=== PATIENT | male | born 1940 | race Two or more races ===

== ENCOUNTER 2024-03-11 03:00 | Inpatient (IN) | payer OTHER, MEDICAID ==
[~2024-03-11] VITALS: Ht 175.3 cm; Wt 68.2 kg
[2024-03-11] VITALS (9 sets, daily range): BP systolic 89–115; BP diastolic 63–81; PULSE 91–123; RESP 20–31; TEMP 98.4; O2SAT 99–100
[2024-03-11] MEDS: SUCCINYLCHOLINE CHLORIDE 20 MG/ML 10ML VIAL IV ONE ×2 (03:07→03:10)
[2024-03-11] MEDS: ETOMIDATE (2MG/ML) 20ML VIAL IV ONE ×2 (03:07→03:10)
[2024-03-11] MEDS ORDERED: NOREPINEPHRINE 8 MG/250ML KIT 250 ML IV SCH (03:15)
[2024-03-11] MEDS: SODIUM CHLORIDE 0.9% 2,000 ML IV ONE (03:25)
--- NOTE | 2024-03-11 03:26 | ED.PDOC ---
Altered Mental Status HPI Comments 83-year-old male with unknown PMHx brought in by EMS presents with an altered mental status. According to EMS, son of patient states that patient has not see a doctor in "years", therefore patient has "no" PMHx and doesn't take medication for anything. Per EMS, son of patient reports that patient is usually ambulatory and alert, but has been cognitively declining over the past x 2 weeks. Patients vital signs were BP 70 systolic, HR 163, temp 103F rectally, and was sating at 70% on room air. EMS gave fluids and placed patient on non-rebreather. Unable to obtain further information at this time due to patients ALOC and lack of family at bedside. Chief Complaint: ALOC Time Seen by MD: 03:00 Reviewed Notes: Medications, Allergies Allergies: Coded Allergies: NO KNOWN ALLERGIES (Unverified , 03/11/24) Information Source: Emergency Med Personnel Mode of Arrival: EMS Severity: Unresponsive Timing: Hours Duration: Since onset Prehospital treatment: IVF, Oxygen Quality: Decreased Alertness History of: Other (UNABLE TO OBTAIN/UNKNOWN) Vital Signs Vital Signs Date Time Temp Pulse Resp B/P (MAP) Pulse Ox O2 Delivery O2 Flow Rate FiO2 03/11/24 15:00 87/64 03/11/24 15:00 97.9 97 22 100 97.9 03/11/24 13:32 50 03/11/24 08:00 Mechanical Ventilator+ Physical Exam General: Patient is obtunded, appears emaciated, chronically ill Skin: Skin in warm, dry and intact. Appropriate color for ethnicity. Nailbeds pink with no cyanosis. HEENT: The head is normocephalic and atraumatic. Conjunctivae are clear without exudates or hemorrhage. Sclera is non-icteric. EOM are intact. No signs of nystagmus. Eyelids are normal in appearance without swelling or lesions. Oral mucosa is pink and moist Neck: The neck is supple with normal range of motion. No JVD. Cardiac: Rapid heart rate, normal rhythm No murmurs, gallops, or rubs are auscultated. Respiratory: Rapid labored breathing with rales. Abdominal: Abdomen is soft, non-tender without distention. Bowel sounds are present and normoactive in all four quadrants. Extremities: Upper and lower extremities are atraumatic in appearance without deformity or edema. Neurological: Patient is obtunded, responds only to painful stimulus, not following commands Review of Systems: Unable to obtain Past Medical History PAST MEDICAL HISTORY: Unknown Surgical History: Unknown Family History Family History: Unknown Social History Smoker: Unknown Alcohol: Unknown Drugs: Unknown Lives In: Unknown EKG EKG : Pulse Rate (adult): 125 [place]: Normal Cardiac Rhythm: ST Block: None Hypertrophy: None ST: Normal Was a procedure done? Was a procedure done?: Yes Sedation Sedation?: Yes Informed consent obtained: No Sedation start time: 03:10 Sedation end time: 03:11 Sedation total time: 1 minute Intubation Indication: Respiratory Insufficiency, Altered Mental Status, Airway Protection Prep: Preoxygenation Pretreated with: Sedation Medicated with: Succinylcholine, Other (ETOMIDATE) Intubation Approach: Orotracheal Intubation size: cm (22 at lip) Informed consent obtained: No Risks/benefits/alt described: No Notes Intubated using GlideScope, to visualize through tubes directly, 1st attempt, 8.0 cuffed tube, confirmed by x-ray, auscultation, CO2 color change Differential Diagnosis (ALOC) Differential Diagnosis: Dehydration, Hypoglycemia, DKA, Encephalopathy, Meningitis, Sepsis, Hypoxemia, Seizure, Closed Head Injury, CVA, Mass Lesion, SAH, Drug Overdose, ETOH Intoxication, Heart Failure, Renal Failure, Other X-Ray, Labs, Meds, VS Vital Signs Date Time Temp Pulse Resp B/P (MAP) Pulse Ox O2 Delivery O2 Flow Rate FiO2 03/11/24 15:00 64 03/11/24 15:00 64 03/11/24 15:00 97.9 97 22 (72) 100 97.9 03/11/24 14:45 97.9 99 24 107/72 (84) 100 97.9 03/11/24 14:30 98.1 104 26 (71) 100 98.1 03/11/24 14:15 98.2 103 26 (71) 100 98.2 03/11/24 14:00 98.2 103 26 (71) 100 98.2 03/11/24 14:00 64 03/11/24 14:00 64 03/11/24 13:45 98.2 104 25 100/63 (75) 100 98.2 03/11/24 13:32 100 25 100/63 (75) 100 50 03/11/24 13:30 98.2 104 25 91/66 (74) 100 98.2 03/11/24 13:15 98.4 103 25 85/57 (66) 100 98.4 03/11/24 13:00 91/62 03/11/24 13:00 91/62 03/11/24 13:00 98.4 105 25 91/62 (72) 100 98.4 03/11/24 12:45 98.6 105 27 91/63 (72) 100 98.6 03/11/24 12:30 98.6 105 26 91/58 (69) 100 98.6 03/11/24 12:15 98.6 106 27 76/52 (60) 100 98.6 03/11/24 12:15 76/52 03/11/24 12:00 98.8 99 29 86/61 (69) 99 98.8 03/11/24 12:00 86/61 03/11/24 12:00 86/61 03/11/24 11:45 99.0 79 25 71/50 (57) 100 99.0 03/11/24 11:30 99.0 108 33 69/48 (55) 100 99.0 03/11/24 11:20 110 23 69/48 (55) 99 50 03/11/24 11:15 99.3 110 27 72/42 (52) 99 99.3 03/11/24 11:15 69/48 03/11/24 11:00 72/42 03/11/24 11:00 72/42 03/11/24 11:00 99.3 109 26 89/60 (70) 98 99.3 03/11/24 10:45 99.7 109 20 88/64 (72) 98 99.7 03/11/24 10:30 100.0 109 31 88/64 (72) 98 100.0 03/11/24 10:29 82/54 03/11/24 10:15 100.4 113 22 94/61 (72) 98 100.4 03/11/24 10:00 98/65 03/11/24 10:00 98/65 03/11/24 10:00 100.6 115 25 98/73 (81) 99 100.6 03/11/24 09:52 98/65 03/11/24 09:45 100.9 118 25 100/73 (82) 99 100.9 03/11/24 09:39 120 23 100/73 (82) 99 50 03/11/24 09:37 118 03/11/24 09:30 101.1 118 24 105/68 (80) 100 101.1 03/11/24 09:15 101.7 114 25 96/69 (78) 100 101.7 03/11/24 09:00 96/69 03/11/24 09:00 105/61 03/11/24 09:00 101.7 119 27 105/61 (76) 99 101.7 03/11/24 08:45 101.8 114 29 106/72 (83) 99 101.8 03/11/24 08:30 102.2 116 30 88/62 (71) 99 102.2 03/11/24 08:15 102.2 116 30 88/62 (71) 99 102.2 03/11/24 08:02 117 29 88/62 (71) 99 60 03/11/24 08:00 120 26 100 Mechanical Ventilator+ 60 60 03/11/24 08:00 102.2 118 26 95/49 (64) 99 102.2 03/11/24 08:00 95/49 03/11/24 08:00 95/49 03/11/24 07:45 102.2 118 27 111/57 (75) 100 102.2 03/11/24 07:30 102.2 120 26 111/57 (75) 100 102.2 03/11/24 07:30 102.4 116 23 97/57 (70) 100 102.4 03/11/24 07:15 102.4 117 27 100/64 (76) 99 102.4 03/11/24 07:00 102.6 119 26 100/64 (76) 99 102.6 03/11/24 06:50 93/45 03/11/24 06:50 93/45 03/11/24 06:45 102.6 117 26 93/45 (61) 99 102.6 03/11/24 06:30 102.6 116 25 100/72 (81) 99 102.6 03/11/24 06:15 97.0 113 22 104/72 (83) 100 97.0 12/3/24 06:03 114 26 106/78 (87) 100 60 03/11/24 06:00 113 24 109/66 (80) 100 03/11/24 05:53 116 03/11/24 05:50 108/74 03/11/24 05:50 108/74 03/11/24 05:45 116 22 108/74 (85) 100 03/11/24 05:30 114 22 111/77 (88) 100 03/11/24 05:15 98.1 119 24 111/77 (88) 100 98.1 03/11/24 05:00 113 25 101/73 (82) 100 03/11/24 05:00 111 03/11/24 04:55 88/69 03/11/24 04:55 88/69 03/11/24 04:45 110 28 96/64 (75) 99 03/11/24 04:41 123 31 111/69 (83) 99 65 03/11/24 04:30 108 25 111/69 (83) 100 03/11/24 04:17 98/68 03/11/24 04:15 97.9 112 28 91/65 (74) 100 97.9 03/11/24 04:00 75/49 03/11/24 04:00 130 36 75/49 (58) 99 03/11/24 03:55 115 03/11/24 03:55 78/46 03/11/24 03:46 88/57 03/11/24 03:45 130 36 88/57 (67) 95 03/11/24 03:41 93/64 03/11/24 03:30 130 36 129/79 (96) 95 03/11/24 03:27 125 03/11/24 03:15 98.4 130 36 130/75 (93) 98.4 03/11/24 03:15 Mechanical Ventilator+ 60 60 03/11/24 03:11 126 18 130/75 (93) 90 100 03/11/24 03:03 125 03/11/24 03:00 103.0 133 44 63/43 (50) 98 Lab Test 03/11/24 09:18 03/11/24 06:01 03/11/24 05:14 03/11/24 04:21 Range/Units Troponin I High Sensitivity 27 28 </=54 ng/L White Blood Count 19.2 H 4.4-10.8 10^3/uL Red Blood Count 3.77 L 4.5-5.90 10^6/uL Hemoglobin 9.8 L 13.5-17.5 g/dL Hematocrit 31.2 L 41.0-53.0 % Mean Corpuscular Volume 82.6 80.0-100.0 fL Mean Corpuscular Hemoglobin 26.0 L 28.0-32.0 pg Mean Corpuscular Hemoglobin Concent 31.4 L 32.0-36.0 g/dL Red Cell Distribution Width 16.2 H 11.8-14.3 % Platelet Count 193 140-450 10^3/uL Mean Platelet Volume 8.0 6.9-10.8 fL Neutrophils (%) (Auto) 37.0-80.0 % Lymphocytes (%) (Auto) 10.0-50.0 % Monocytes (%) (Auto) 0.0-12.0 % Basophils (%) (Auto) 0.0-2.0 % Neutrophils # (Auto) 1.6-8.6 10 ^3/uL Lymphocytes # (Auto) 0.4-5.4 10 ^3/uL Monocytes # (Auto) 0-1.3 10 ^3/uL Differential Total Cells Counted 100.0 100 Neutrophils % (Manual) 82 H 37.0-80.0 Band Neutrophils % (Manual) 7 Lymphocytes % (Manual) 7 L 10.0-50.0 Monocytes % (Manual) 4 0-12 Eosinophils % (Manual) 0 0-7 Basophils % (Manual) 0 0.0-2.0 Metamyelocytes % (manual) 0 Myelocytes % (Manual) 0 Promyelocytes % (Manual) 0 Blast Cells % (Manual) 0 Reactive Lymphocytes 0 Platelet Estimate Adequate Lactic Acid Level 2.8 *H 0.4-2.0 mmol/L B-Type Natriuretic Peptide 262.73 0-100 pg/mL Influenza Type A Antigen Negative Negative Influenza Type B Antigen Negative Negative SARS-CoV-2 Antigen (Rapid) Negative NEGATIVE Blood Gas Specimen Type Arterial Blood Gas Sample Site Right radial Blood Gas Patient Temperature 37.0 Arterial Blood Date Drawn [id number] Arterial Blood pH 7.504 H 7.350-7.450 Arterial Blood Partial Pressure CO2 33.0 L 35.0-48.0 mmHg Arterial Blood Partial Pressure O2 172.5 H 83.0-108.0 mmHg Arterial Blood HCO3 25.4 21.0-28.0 mmol/L Arterial Blood Oxygen Saturation 99.1 H 94.0-98.0 % Arterial Blood Base Excess 2.5 -2.0-3.0 mmol/L Arterial Blood Oxyhemoglobin 98.2 H 94.0-98.0 % Arterial Blood Carboxyhemoglobin 0.3 L 0.5-1.5 % Arterial Blood Methemoglobin 0.6 0.0-1.5 % Will Test Modified Blood Gas Total Hemoglobin 10.40 L 13.5-17.5 g/dL Blood Gas Set Respiration Rate 18.0 Blood Gas Modality Vent - ac Blood Gas Spontaneous Rate 31 FiO2 % 100.0 Blood Gas Tidal Volume 500.0 Blood Gas Spontaneous Tidal Volume 540 Blood Gas Inspiratory Pressure 30.0 Blood Gas PEEP or CPAP 5.0 Bl Gas Inspiratory/Expiratory Ratio 1:1.3 Test 03/11/24 04:00 03/11/24 03:24 Range/Units Urine Color Yellow Yellow Urine Clarity Turbid H Clear Urine pH 6.0 5.0-9.0 Urine Specific [place] 1.016 1.001-1.035 Urine Protein 1+ H Negative Urine Ketones Negative Negative Urine Blood 1+ H Negative /uL Urine Nitrite Negative Negative Urine Bilirubin Negative Negative Urine Urobilinogen 2 H Negative mg/dL Urine Leukocyte Esterase 3+ Negative /uL Urine RBC 24 0 - 3 /hpf Urine WBC 280 0 - 3 /hpf Urine Squamous Epithelial Cells Few <5 /hpf Urine Bacteria Many H None Seen /hpf Urine Mucus Few None Seen Urine Glucose Normal Normal mg/dL Urine Opiates Screen Neg NEGATIVE Urine Fentanyl Screen Neg NEGATIVE Urine Barbiturates Screen Neg NEGATIVE Urine Phencyclidine Screen Neg NEGATIVE Urine Amphetamines Screen Neg NEGATIVE Urine Benzodiazepines Screen Neg NEGATIVE Urine Cocaine Screen Neg NEGATIVE Urine Cannabinoids Screen Neg NEGATIVE Sodium Level 149 H 136-145 mmol/L Potassium Level 4.8 3.5-5.1 mmol/L Chloride Level 111 H 98-107 mmol/L Carbon Dioxide Level 23 20-31 mmol/L Anion Gap 15 5-15 Blood Urea Nitrogen 20 9-23 mg/dL Creatinine 0.59 L 0.700-1.30 mg/dL Glomerular Filtration Rate Calc 97 >90 mL/min BUN/Creatinine Ratio 33.9 H 10.0-20.0 Serum Glucose 249 H 74-106 mg/dL Lactic Acid Level 4.6 *H 0.4-2.0 mmol/L Calcium Level 8.7 8.7-10.4 mg/dL Magnesium Level 1.9 1.6-2.6 mg/dL Total Bilirubin 0.5 0.2-1.0 mg/dL Aspartate Amino Transferase (AST) 16 13-40 U/L Alanine Aminotransferase (ALT) < 9 7-40 U/L Alkaline Phosphatase 88 46-116 U/L Troponin I High Sensitivity 21 </=54 ng/L Total Protein 5.6 L 5.7-8.2 g/dL Albumin 2.4 L 3.2-4.8 g/dL Plasma/Serum Blood Alcohol < 3.0 <10 mg/dL Microbiology Date/Time Source Procedure Growth Status 03/11/24 03:20 Sputum Endotracheal Wash Gram Stain - Final Resulted 03/11/24 03:20 Sputum Endotracheal Wash Respiratory Culture Pending Resulted Current Medications Medications (Trade) Dose Ordered Sig/Hunter Route Start Time Stop Time Status Last Admin Piperacillin Sod/ Tazobactam Sod 100 ml @ 25 mls/hr Q8HR IV 03/11/24 06:00 03/11/24 17:46 DC 03/11/24 16:30 Sodium Chloride 2,000 ml @ 1,000 mls/hr Q2H ONCE IV 03/11/24 03:15 03/11/24 05:14 DC 03/11/24 03:25 Midazolam HCl 50 ml @ 1 mls/hr Q24H IV 03/11/24 03:45 03/11/24 16:42 DC 03/11/24 03:41 Norepinephrine Bitartrate 250 ml @ 3.75 mls/hr Q24H IV 03/11/24 03:45 03/11/24 17:25 Vancomycin HCl 200 ml @ 120 mls/hr ONCE ONCE IV 03/11/24 05:00 03/11/24 06:39 DC 03/11/24 04:31 Sodium Chloride 1,000 ml @ 130 mls/hr Q7H42M ONCE IV 03/11/24 04:15 03/11/24 11:56 DC 03/11/24 04:25 Etomidate 20 mg ONCE ONCE IV 03/11/24 03:10 03/11/24 05:19 DC 03/11/24 03:10 Succinylcholine Chloride (Quelicin) 120 mg ONCE ONCE IV 03/11/24 03:10 03/11/24 05:19 DC 03/11/24 03:10 Acetaminophen (Ofirmev) 1,000 mg ONCE ONCE IV 03/11/24 07:15 03/11/24 07:16 DC 03/11/24 08:54 Time of 1ST Reevaluation: 03:30 Reevaluation 1ST: Unchanged Patient Education/Counseling: Pt Unresponsive Family Education/Counseling: No Family Present Departure 1 Departure Time of Disposition: 05:42 Impression: Primary Impression: Sepsis Additional Impressions: Altered mental status Respiratory failure Disposition: 09 ADMITTED INPATIENT Admit to: ICU Condition: Critical Comments 83-year-old male who presented to the emergency department with altered mental status, labored breathing, hypoxia. He was intubated for airway protection, oxygenation. Patient found to be febrile, there is concern for sepsis, possible sources UTI, pulmonary. He was started on antibiotics and IV fluids promptly. Lactic acid noted to be elevated at 4.6. CT head, abdomen pelvis pending. Patient admitted for further treatment, evaluation and monitoring. Number & Complexity of Problems Addressed Sepsis, urinary tract infection, pneumonia Extensive evaluation was performed to identify or rule out: CVA, septic shock, acute coronary syndrome, acute surgical abdomen, Amount and/or Complexity of Data to be Reviewed/Analyzed Tests reviewed: Lab, material blood gas, and imaging studies Documents reviewed: No previous documents available for review Independent historian: EMS Independent interpretation of tests: EKG, chest x-ray, ABG Risk of Complications and/or Morbidity or Mortality of Patient Management Patient was at high risk of morbidity from additional diagnostic testing or treatment Decision was made regarding hospitalization or escalation of hospital level of care Critical Care Note Critical Care Time?: Yes (35 min-critical care time only) Critical care comment: Total critical care time: Approximately 35 minutes Due to a high probability of clinically significant, life threatening deterioration, the patient required my highest level of preparedness to intervene emergently and I personally spent this critical care time directly and personally managing the patient. This critical care time included obtaining a history; examining the patient; pulse oximetry; ordering and review of studies; arranging urgent treatment with development of a management plan; evaluation of patient's response to treatment; frequent reassessment; and, discussions with other providers. This critical care time was performed to assess and manage the high probability of imminent, life-threatening deterioration that could result in multi-organ failure. It was exclusive of separately billable procedures and treating other patients and teaching time. Please see my other sections and the rest of the note for further information on patient assessment and treatment. Stability Stability form required: No I personally scribed for GERRY CHAMBERS MD ([email or web address]) on 03/11/24 at 03:26. Electronically submitted by Reji Davidson ([email or web address]). I personally scribed for GERRY CHAMBERS MD ([email or web address]) on 03/11/24 at 03:27. Electronically submitted by Reji Davidson ([email or web address]). I personally scribed for GERRY CHAMBERS MD ([email or web address]) on 03/11/24 at 03:31. Electronically submitted by Reji Davidson ([email or web address]). GERRY CHAMBERS MD Mar 11, 2024 03:26
[2024-03-11] MEDS: MIDAZOLAM DRIP 50 mg/50mL 50 ML IV ONE (03:41)
[2024-03-11] MEDS: MIDAZOLAM DRIP 50 mg/50mL 50 ML IV SCH (03:41)
[2024-03-11] MEDS: NOREPINEPHRINE 8 MG/250ML KIT 250 ML IV SCH (03:46)
[2024-03-11] MEDS: NOREPINEPHRINE 8 MG/250ML KIT 250 ML IV ONE (03:46)
--- NOTE | 2024-03-11 03:46 | DVH ---
CHEST RADIOGRAPH Indication: post intubation sepsis Technique: Single frontal view of the chest was obtained COMPARISON: None FINDINGS: Lines and Tubes: Endotracheal tube in satisfactory position. Lungs: Multifocal airspace disease. Pleura: No effusion. No pneumothorax. Cardiomediastinal contours: Unremarkable Bones: Unremarkable IMPRESSION: Endotracheal tube in satisfactory position. Multifocal airspace disease.
--- NOTE | 2024-03-11 03:57 | ECG ---
[facility] Test Date: 2024-03-11 Test Time: 03:55:59 Pat Name: ARLINE WHITE Department: ED Room: [address] [place] [address] Gender: M Monitor Technician: ALEX : 1940 Requested By: GERRY CHAMBERS Order Number: [id number] Reading MD: Sebastian Jane Measurements Intervals [place] Rate: 115 P: 76 MN: 144 QRS: 81 QRSD: 66 T: -87 QT: 319 QTc: 442 Interpretive Statements Sinus tachycardia Borderline right axis deviation Borderline repolarization abnormality Electronically Signed On 03-12-2024 16:21:52 PST by Sebastian Jane Please click the below link to view image of tracing.
[2024-03-11 04:03] LABS: Lactic Acid w/Reflex 4.6 mmol/L (0.4-2.0)
[2024-03-11] MEDS: SODIUM CHLORIDE 0.9% 1,000 ML IV ONE (04:25)
--- NOTE | 2024-03-11 04:30 | DVH ---
CHEST RADIOGRAPH Indication: NG TUBE PLACEMENT Technique: Single frontal view of the chest was obtained Comparison: XY CHEST XRAY 1 VIEW on DOS: 03/11/24 FINDINGS: Lines and Tubes: The endotracheal tube terminates 3.2 cm above the matt. The enteric tube courses below the left hemidiaphragm and extends outside the field of view. Lungs: The right hemidiaphragm is elevated. Mild bilateral interstitial prominence. Pleura: No effusion. No pneumothorax. Cardiomediastinal contours: Unremarkable Bones: No acute osseous abnormality. IMPRESSION: 1. Enteric tube courses below the left hemidiaphragm and outside the field of view. Bilateral interstitial prominence.
[2024-03-11 04:31] LABS: Base Excess 2.5 mmol/L (-2.0-3.0)
[2024-03-11 04:31] LABS: Amphetamine Screen, Urine Neg (NEGATIVE); Barbiturate Scree,Urine Neg (NEGATIVE); Benzodiazephine Screen, Urine Neg (NEGATIVE); Cocaine Screen, Urine Neg (NEGATIVE); Opiate Scree,Urine Neg (NEGATIVE)
[2024-03-11] MEDS: VANCOMYCIN 1GM/250ML KIT 200 ML IV ONE (04:31)
[2024-03-11 04:32] LABS: Cannabinoid Screen, Urine Neg (NEGATIVE); Phencyclidine Screen, Urine Neg (NEGATIVE)
[2024-03-11 04:48] LABS: Albumin 2.4 g/dL (3.2-4.8); Alkaline Phosphatase 88 U/L (46-116); Anion Gap 15 (5-15); Aspartate Aminotransferase 16 U/L (13-40); BUN/Creatinine Ratio 33.9 (10.0-20.0); Blood Urea Nitrogen 20 mg/dL (9-23); Calcium 8.7 mg/dL (8.7-10.4); Carbon Dioxide 23 mmol/L (20-31); Chloride 111 mmol/L (98-107); Glucose 249 mg/dL (74-106); Magnesium 1.9 mg/dL (1.6-2.6); Potassium 4.8 mmol/L (3.5-5.1); Sodium 149 mmol/L (136-145)
[2024-03-11 04:49] LABS: Bilirubin, Total 0.5 mg/dL (0.2-1.0); Total Protein 5.6 g/dL (5.7-8.2)
[2024-03-11 04:57] LABS: Alanine Aminotransferase < 9 U/L (7-40)
[2024-03-11 05:09] LABS: Urine Bacteria MANY /hpf (None Seen); Urine Blood 1+ /uL (Negative); Urine Clarity Turbid (Clear); Urine Color Yellow (Yellow); Urine Mucus FEW (None Seen); Urine Protein, UAD 1+ (Negative); Urine Specific Gravity 1.016 (1.001-1.035); Urine Urobilinogen 2 mg/dL (Negative); Urine WBC 280 /hpf (0 - 3)
[2024-03-11] MEDS: PIPERACILLIN-TAZO 4.5GM 100 ML IV SCH (05:53)
--- NOTE | 2024-03-11 05:55 | ECG ---
[facility] Test Date: 2024-03-11 Test Time: 05:53:52 Pat Name: ARLINE WHITE Department: ED Room: [address] [place] [address] Gender: M Geriatric Physical Therapist: ALEX : 1940 Requested By: GERRY CHAMBERS Order Number: [id number] Reading MD: Sebastian Jane Measurements Intervals [place] Rate: 116 P: -80 [place]: 139 QRS: 78 QRSD: 56 T: -89 QT: 349 QTc: 485 Interpretive Statements Sinus or ectopic atrial tachycardia Atrial premature complex Borderline repolarization abnormality Borderline prolonged QT interval Baseline wander in lead(s) V4 Electronically Signed On 03-12-2024 16:22:14 PST by Sebastian Jane Please click the below link to view image of tracing.
--- NOTE | 2024-03-11 06:01 | DVH ---
EXAM: CT HEAD WITHOUT CONTRAST INDICATION: ams TECHNIQUE: CT of the head without intravenous contrast. Coronal and sagittal reformatted images are submitted. Radiation Dose : 1. Head: CT Dose: CTDI volume is 55.49 mGy. Dose-length product is 889.22 mGy*cm The dose indicators for CT are the volume Computed Tomography (CT) Dose Index (CTDIvol) and the Dose Length Product (DLP), and are measured in units of mGy and mGy-cm, respectively. These indicators are not patient dose, but values generated from the CT scanner acquisition factors. The report includes radiation exposure data for exposures received during this examination. All CT scans at this medical facility are performed using dose modulation techniques as appropriate to a performed exam including the following: Automated exposure control was utilized; adjustment of the MA and/or KV according to patient size; and use of iterative reconstruction technique. COMPARISON: None FINDINGS: There is no evidence of acute intracranial hemorrhage, extra-axial collection, mass effect, midline s hift, herniation or hydrocephalus. Mild generalized volume loss. There are periventricular and subcortical hypodensities, nonspecific, but likely reflecting sequelae of chronic microvascular ischemic changes. Basal cisterns are patent. Mild ventriculomegaly. The webster-white differentiation is intact. The visualized paranasal sinuses and mastoid air cells are clear. No depressed calvarial fracture. The surrounding soft tissues are unremarkable. IMPRESSION: 1. No evidence of acute intracranial hemorrhage or mass effect. 2. Mild ventriculomegaly. Mild hydrocephalus is not excluded.
--- NOTE | 2024-03-11 06:09 | ECG ---
[facility] Test Date: 2024-03-11 Test Time: 03:03:37 Pat Name: ARLINE WHITE Department: ED Room: [address] [place] [address] Gender: M Special Needs Tutor: ALEX : 1940 Requested By: GERRY CHAMBERS Order Number: [id number] Reading MD: Sebastian Jane Measurements Intervals [place] Rate: 125 P: 61 AR: 147 QRS: 80 QRSD: 60 T: 258 QT: 302 QTc: 436 Interpretive Statements Sinus tachycardia Ventricular premature complex Aberrant conduction of SV complex(es) Anteroseptal infarct, old Borderline ST depression, diffuse leads Abnormal T, consider ischemia, diffuse leads Baseline wander in lead(s) V4 Electronically Signed On 03-12-2024 16:17:23 PST by Sebastian Jane Please click the below link to view image of tracing.
[2024-03-11 07:01] LABS: Hematocrit 31.2 % (41.0-53.0); Hemoglobin 9.8 g/dL (13.5-17.5); Mean Corpuscular Hgb Conc. 31.4 g/dL (32.0-36.0); Mean Corpuscular Volume 82.6 fL (80.0-100.0); Platelet Count (auto) 193 10^3/uL (140-450); Red Blood Cells 3.77 10^6/uL (4.5-5.90); Red Cell Distribution Width 16.2 % (11.8-14.3); White Blood Cell 19.2 10^3/uL (4.4-10.8)
[2024-03-11 07:08] LABS: COVID19 ANTIGEN SOFIA FIA NEGATIVE (NEGATIVE)
[2024-03-11 07:09] LABS: Rapid Influenza A Negative (Negative); Rapid Influenza B Negative (Negative)
[2024-03-11 07:23] LABS: Basophils % (manual) 0 (0.0-2.0); Blast Cells 0; Eosinophils % (manual) 0 (0-7); Metamyelocytes % 0; Myelocytes % 0; Promyelocytes % 0; Reactive Lymphocytes 0
[2024-03-11 07:50] LABS: Band Neutrophils % (manual) 7; Lymphocytes % (manual) 7 (10.0-50.0); Monocytes % (manual) 4 (0-12); Platelet Estimate Adequate
--- NOTE | 2024-03-11 08:53 | DVH ---
Exam: CT CT AB PEL WO CON-NO ORAL OR IV History: Hematuria, altered mental status, UTI, sepsis Comparison Study: None Technique: Multidetector spiral CT of the abdomen was performed from lung bases to pubic symphysis. Imaging was performed without IV contrast. Axial, coronal and sagittal multiplanar reformats were ob tained from the axial data set by the technologist. Radiation Dose : 1. Abdomen/Pelvis: CTDIvol 5.7 mGy, DLP 329.1 mGy*cm. Findings: Evaluation of solid organs is limited due to lack of intravenous contrast use. Lung Bases: Bilateral lower lobe airspace disease. Liver: The liver is normal in size. No focal lesions. Gallbladder and Biliary Tree: Unremarkable Spleen: Unremarkable Pancreas: The pancreas is grossly normal in appearance. Adrenal Glands: Unremarkable Kidneys: Kidneys are grossly normal without calculi or hydronephrosis. Bladder: Jimenez catheter in the bladder. Bowel: Nasogastric tube in the stomach. Large volume colonic stool. The appendix is not visualized; however, no secondary findings of acute appendicitis identified. Ascites: Absent Lymphadenopathy: No mesenteric, retroperitoneal or periportal lymphadenopathy. Abdominal Wall and Mesentery: Unremarkable. Vasculature: Vascular calcifications of the aorta. Infrarenal abdominal aortic aneurysm measures 5.9 cm. Pelvic Organs: Prostate is enlarged. Musculoskeletal: Grade 1 anterolisthesis of L5 on S1. No acute fracture. Diffuse mixed lytic and sclerotic appearance to visualized osseous structures is suspicious for metas tatic infiltration. IMPRESSION: Multifocal airspace opacities in the bilateral lower lobes is suspicious for multifocal infection. Abdominal aortic aneurysm measures 5.9 cm. Large volume colonic stool. Diffuse mixed lytic and sclerotic appearance to visualized osseous structures is suspicious for metas tatic infiltration. Radiation optimization: All CT scans at this facility use at least one of these dose optimization daniele hniques: automated exposure control mA and/or kV adjustment per patient size (includes targeted exam s where dose is matched to clinical indication) or iterative reconstruction.
[2024-03-11] MEDS: ACETAMINOPHEN IV 1000 MG/100ML (10MG/ML) IV ONE (08:54)
[2024-03-11] MEDS ORDERED: VANCOMYCIN 1GM/250ML KIT 200 ML IV SCH (10:00)
[2024-03-11] MEDS ORDERED: VANCOMYCIN PER PHARMACY 0 MG IV SCH (16:30)
[2024-03-11] MEDS ORDERED: MORPHINE SULFATE 4 MG/ML SYR/VIAL IV PRN (16:30)
--- NOTE | 2024-03-11 16:38 | DVHHP2 ---
History of Present Illness Reason for Visit: Altered mental status History of Present Illness 83-year-old male who apparently does not get medical care or goes to the doctor, no medical problems, no medications at home, is brought to the emergency room by his son due to altered mentation. His mental status started to decline 2 weeks ago Here he was hypotensive and was started on Levophed drip, he was tachycardic, he was intubated and currently is sedated and still on Levophed for blood pressure support and Versed for sedation The labs showed UTI Chest x-ray showed pneumonia White count is high at 9.2 Lactic acid high at 4.6 Past Medical History Unknown Past Surgical History: None Smoke: Quit Review of Systems Allergies: Coded Allergies: NO KNOWN ALLERGIES (Unverified , 03/11/24) Medications Current Medications Medications Dose Ordered Sig/Hunter Route Start Time Stop Time Status Last Admin Dose Admin Vancomycin HCl 200 ml @ 200 mls/hr Q12HR IV 03/11/24 10:00 UNV Piperacillin Sod/ Tazobactam Sod 100 ml @ 25 mls/hr Q8HR IV 03/11/24 06:00 03/11/24 05:53 25 MLS/HR Midazolam HCl 50 ml @ 1 mls/hr Q24H IV 03/11/24 03:45 03/11/24 03:41 1 MLS/HR Norepinephrine Bitartrate 250 ml @ 3.75 mls/hr Q24H IV 03/11/24 03:45 03/11/24 03:46 3.75 MLS/HR Exam Vital Signs Vital Signs Date Time Temp Pulse Resp B/P (MAP) Pulse Ox O2 Delivery O2 Flow Rate FiO2 03/11/24 16:00 97 21 89/63 (72) 100 50 03/11/24 13:00 98.4 98.4 03/11/24 08:00 Mechanical Ventilator+ Exam Intubated and sedated General Appearance: Other (intubated and sedated) HEENT: Atraumatic, PERRLA, EOMI Respiratory: Other (Bilateral rhonchi at the bases) Cardiovascular: Regular rate, Normal S1, Normal S2 Abdominal: Normal bowel sounds, Soft, No tenderness Extremities: No edema Labs/Xrays Labs Test 03/11/24 09:18 03/11/24 06:01 03/11/24 05:14 03/11/24 04:21 Range/Units Troponin I High Sensitivity 27 </=54 ng/L White Blood Count 19.2 H 4.4-10.8 10^3/uL Red Blood Count 3.77 L 4.5-5.90 10^6/uL Hemoglobin 9.8 L 13.5-17.5 g/dL Hematocrit 31.2 L 41.0-53.0 % Mean Corpuscular Volume 82.6 80.0-100.0 fL Mean Corpuscular Hemoglobin 26.0 L 28.0-32.0 pg Mean Corpuscular Hemoglobin Concent 31.4 L 32.0-36.0 g/dL Red Cell Distribution Width 16.2 H 11.8-14.3 % Platelet Count 193 140-450 10^3/uL Mean Platelet Volume 8.0 6.9-10.8 fL Neutrophils (%) (Auto) 37.0-80.0 % Lymphocytes (%) (Auto) 10.0-50.0 % Monocytes (%) (Auto) 0.0-12.0 % Basophils (%) (Auto) 0.0-2.0 % Neutrophils # (Auto) 1.6-8.6 10 ^3/uL Lymphocytes # (Auto) 0.4-5.4 10 ^3/uL Monocytes # (Auto) 0-1.3 10 ^3/uL Differential Total Cells Counted 100.0 100 Neutrophils % (Manual) 82 H 37.0-80.0 Band Neutrophils % (Manual) 7 Lymphocytes % (Manual) 7 L 10.0-50.0 Monocytes % (Manual) 4 0-12 Eosinophils % (Manual) 0 0-7 Basophils % (Manual) 0 0.0-2.0 Metamyelocytes % (manual) 0 Myelocytes % (Manual) 0 Promyelocytes % (Manual) 0 Blast Cells % (Manual) 0 Reactive Lymphocytes 0 Platelet Estimate Adequate Lactic Acid Level 2.8 *H 0.4-2.0 mmol/L B-Type Natriuretic Peptide 262.73 0-100 pg/mL Influenza Type A Antigen Negative Negative Influenza Type B Antigen Negative Negative SARS-CoV-2 Antigen (Rapid) Negative NEGATIVE Blood Gas Specimen Type Arterial Blood Gas Sample Site Right radial Blood Gas Patient Temperature 37.0 Arterial Blood Date Drawn [id number] Arterial Blood pH 7.504 H 7.350-7.450 Arterial Blood Partial Pressure CO2 33.0 L 35.0-48.0 mmHg Arterial Blood Partial Pressure O2 172.5 H 83.0-108.0 mmHg Arterial Blood HCO3 25.4 21.0-28.0 mmol/L Arterial Blood Oxygen Saturation 99.1 H 94.0-98.0 % Arterial Blood Base Excess 2.5 -2.0-3.0 mmol/L Arterial Blood Oxyhemoglobin 98.2 H 94.0-98.0 % Arterial Blood Carboxyhemoglobin 0.3 L 0.5-1.5 % Arterial Blood Methemoglobin 0.6 0.0-1.5 % Will Test Modified Blood Gas Total Hemoglobin 10.40 L 13.5-17.5 g/dL Blood Gas Set Respiration Rate 18.0 Blood Gas Modality Vent - ac Blood Gas Spontaneous Rate 31 FiO2 % 100.0 Blood Gas Tidal Volume 500.0 Blood Gas Spontaneous Tidal Volume 540 Blood Gas Inspiratory Pressure 30.0 Blood Gas PEEP or CPAP 5.0 Bl Gas Inspiratory/Expiratory Ratio 1:1.3 Test 03/11/24 04:00 03/11/24 03:24 Range/Units Urine Color Yellow Yellow Urine Clarity Turbid H Clear Urine pH 6.0 5.0-9.0 Urine Specific [place] 1.016 1.001-1.035 Urine Protein 1+ H Negative Urine Ketones Negative Negative Urine Blood 1+ H Negative /uL Urine Nitrite Negative Negative Urine Bilirubin Negative Negative Urine Urobilinogen 2 H Negative mg/dL Urine Leukocyte Esterase 3+ Negative /uL Urine RBC 24 0 - 3 /hpf Urine WBC 280 0 - 3 /hpf Urine Squamous Epithelial Cells Few <5 /hpf Urine Bacteria Many H None Seen /hpf Urine Mucus Few None Seen Urine Glucose Normal Normal mg/dL Urine Opiates Screen Neg NEGATIVE Urine Fentanyl Screen Neg NEGATIVE Urine Barbiturates Screen Neg NEGATIVE Urine Phencyclidine Screen Neg NEGATIVE Urine Amphetamines Screen Neg NEGATIVE Urine Benzodiazepines Screen Neg NEGATIVE Urine Cocaine Screen Neg NEGATIVE Urine Cannabinoids Screen Neg NEGATIVE Sodium Level 149 H 136-145 mmol/L Potassium Level 4.8 3.5-5.1 mmol/L Chloride Level 111 H 98-107 mmol/L Carbon Dioxide Level 23 20-31 mmol/L Anion Gap 15 5-15 Blood Urea Nitrogen 20 9-23 mg/dL Creatinine 0.59 L 0.700-1.30 mg/dL Glomerular Filtration Rate Calc 97 >90 mL/min BUN/Creatinine Ratio 33.9 H 10.0-20.0 Serum Glucose 249 H 74-106 mg/dL Calcium Level 8.7 8.7-10.4 mg/dL Magnesium Level 1.9 1.6-2.6 mg/dL Total Bilirubin 0.5 0.2-1.0 mg/dL Aspartate Amino Transferase (AST) 16 13-40 U/L Alanine Aminotransferase (ALT) < 9 7-40 U/L Alkaline Phosphatase 88 46-116 U/L Total Protein 5.6 L 5.7-8.2 g/dL Albumin 2.4 L 3.2-4.8 g/dL Plasma/Serum Blood Alcohol < 3.0 <10 mg/dL Microbiology Date/Time Source Procedure Growth Status 03/11/24 03:20 Sputum Endotracheal Wash Gram Stain - Final Resulted 03/11/24 03:20 Sputum Endotracheal Wash Respiratory Culture Pending Resulted Assessment/Plan Assessment/Plan Acute hypoxic respiratory failure Sepsis with septic shock UTI Multi lobar pneumonia Hypernatremia Hypoxemia Bed ridden x 2 years Large AAA 5.9 cm Constipation Diffuse mixed lytic osseous lesions suspicious for metastatic disease Plan Admit to ICU Mechanical ventilation Broad-spectrum antibiotics Zosyn and vancomycin Sedation as needed: Discontinue Versed and start fentanyl drip, add propofol if needed DVT prophylaxis with Lovenox GI prophylaxis with Protonix IV Echo Get urine culture and blood culture and sputum culture Norepinephrine p.r.n. for blood pressure support Pulmonary consult Start tube feeding Discussed with his son over the phone Full code Plan discussed with: Son, Other My Orders Orders - ALBERTO FREEMAN MD Procedure Category Date Status Time Admit ADMIT 03/11/24 Transmitted 15:04 Emergency Dysrhythmia [facility] 03/11/24 In Process Protocol 15:04 Rhythm Strips Once SMITHA 03/11/24 In Process Every Shift 15:04 *Consult CONS 03/11/24 Transmitted / 16:16 Pantoprazole PHA 03/12/24 Transmitted (Protonix) 10:00 Complete Blood Count LAB 03/12/24 Verified 04:00 Comprehensive LAB 03/12/24 Verified Metabolic Panel 04:00 Hemoglobin A1c LAB 03/12/24 Verified 04:00 Ammonia LAB 03/12/24 Verified 04:00 Lipase LAB 03/12/24 Verified 04:00 Lipid Panel LAB 03/12/24 Verified 04:00 Magnesium LAB 03/12/24 Verified 04:00 PTPTT LAB 03/12/24 Verified 04:00 Thyroid Stimulating LAB 03/12/24 Verified Hormone 04:00 Urine Bacterial BRIDGET 03/11/24 Verified Culture 16:17 Insert Jimenez Catheter SMITHA 03/11/24 Verified 16:17 Date of Service: Mar 11, 2024 Billing Provider: ALBERTO FREEMAN MD Common Visit Codes: NOT BILLABLE ALBERTO FREEMAN MD Mar 11, 2024 16:37
--- NOTE | 2024-03-11 17:11 | DVHNC2 ---
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 insecticide: Other (resident) Indication: Hypotension, Volume resuscitation Room prepared for procedure: Yes Animal Husbandry Professor performed hand hygien: Yes Maximal sterile barrier precau: Mask/Eye shield, Sterile gown, Cap, Sterlie gloves, Large sterlie drape Skin Preparation: Chlorhexidine gluconate Skin preparation completely dr: Yes Insertion site: Left, Internal jugular, Line secured Central line catheter type: [id number] dialysis Number of lumens: 3 Central line exchanged over a: No Antiseptic ointment applied to: Yes Post Assessment: Chest X-Ray Informed consent obtained: Yes Risks/benefits/alt described: Yes Notes Procedure was done and ultrasound-guided, supervised by jethro Juarez MD LEFT chest region was prepped using chlorhexidine scrub and draped in sterile fashion using a full drape and sterile probe cover and sterile gel employed. The medial and lateral heads of the sternocleidomastoid muscle were identified as was the carotid pulse. The Internal Jugular vein was identified using the ultrasound. Anesthesia was achieved over the vein using 1% lidocaine. Using real-time out of plane guidance, the introducer needle was inserted into the Internal Jugular vein under direct ultrasound visualization. Venous blood was withdrawn. The syringe was removed and a guidewire was advanced into the introducer needle. The guidewire was visualized in the Internal Jugular Vein by ultrasound. A small incision was made at the skin surface with a scalpel and the introducer needle was exchanged for a dilator over the guidewire. After appropriate dilation was obtained, the dilator was exchanged over the wire for a central venous catheter. The wire was removed and the catheter was sutured in place. A sterile sorbaview shield was placed over the catheter at the insertion site. The patient tolerated the procedure without any hemodynamic compromise. At time of procedure completion, all ports aspirated and flushed properly. Post-procedure chest x-ray is pending at this time. Estimated blood loss is<10 ml. Date of Service: Mar 11, 2024 Billing Provider: ALBERTO FREEMAN MD Common Visit Codes: PROCEDURE ONLY RONEL ORDONEZ RESIDENT Mar 11, 2024 17:11
--- NOTE | 2024-03-11 17:34 | DVH ---
EXAM: XY CHEST XRAY 1 VIEW TECHNIQUE: Single frontal chest radiograph CLINICAL HISTORY: central line verification COMPARISON: XY CHEST XRAY 1 VIEW on DOS: 03/11/24, XY CHEST XRAY 1 VIEW on DOS: 03/11/24 Findings/Impression: Frontal chest radiograph demonstrates no acute osseous or superficial soft tissue abnormalities. Endotracheal tube terminates 2.6 cm from the matt. Left sided IJ catheter terminates near the proxi mal SVC. The trachea is midline. The cardiac silhouette is within normal limits. Widening of the mediastinum. Recommend contrast enhanced CT chest for further evaluation if not alrea dy performed. Left basilar airspace opacities. No pneumothorax or pleural effusions.
[2024-03-11] MEDS: fentaNYL Drip 2500mCg/250mlNS 250 ML IV SCH (18:00)
[2024-03-11] MEDS: IPRATROPIUM BROM 0.5 MG/2.5ML INH SOL NEB SCH (18:03)
[2024-03-11] MEDS: IPRATROPIUM BROM 0.5 MG/2.5ML INH SOL ONE (18:03)
[2024-03-11 18:09] LABS: Basophils # (auto) 0 10 ^3/uL (0-0.2); Basophils % (auto) 0.2 % (0.0-2.0); Eosinophils # (auto) 0 10 ^3/uL (0-0.8); Hemoglobin 9.9 g/dL (13.5-17.5); Lymphocytes # (auto) 2.2 10 ^3/uL (0.4-5.4); Lymphocytes % (auto) 10.1 % (10.0-50.0); Mean Corpuscular Hemoglobin 25.6 pg (28.0-32.0); Mean Corpuscular Hgb Conc. 30.1 g/dL (32.0-36.0); Monocytes # (auto) 0.7 10 ^3/uL (0-1.3); Neutrophils # (auto) 19.1 10 ^3/uL (1.6-8.6); Neutrophils % (auto) 86.7 % (37.0-80.0); Nucleated Red Blood Cells % 0.1 %; Platelet Count (auto) 171 10^3/uL (140-450); Red Blood Cells 3.88 10^6/uL (4.5-5.90); White Blood Cell 22.1 10^3/uL (4.4-10.8)
[2024-03-11 18:14] LABS: Base Excess 0.4 mmol/L (-2.0-3.0)
[2024-03-11 18:17] LABS: Potassium 3.5 mmol/L (3.5-5.1)
[2024-03-11 18:18] LABS: Anion Gap 10 (5-15); Calcium 8.8 mg/dL (8.7-10.4); Carbon Dioxide 25 mmol/L (20-31)
[2024-03-11 18:23] LABS: BUN/Creatinine Ratio 39.2 (10.0-20.0)
[2024-03-11 18:31] LABS: Blood Urea Nitrogen 31 mg/dL (9-23); Chloride 112 mmol/L (98-107); Glucose 269 mg/dL (74-106); Sodium 147 mmol/L (136-145)
[2024-03-11] MEDS: VANCOMYCIN 1GM/250ML KIT 250 ML IV SCH (18:40)
--- NOTE | 2024-03-11 19:19 | DVH ---
CHEST RADIOGRAPH Indication: repeat to confirm central line and r/o pneumo Technique: Single frontal view of the chest was obtained COMPARISON: XY CHEST XRAY 1 VIEW on DOS: 03/11/24, XY CHEST XRAY 1 VIEW on DOS: 03/11/24, XY CHEST XRAY 1 VIEW on DOS: 03/11/24 FINDINGS: Lines and Tubes: Endotracheal tube terminates 4.2 cm above the matt. Left-sided central venous cath eter is seen with tip in the cavoatrial junction. Enteric tube courses below the diaphragm with side hole near the GE junction. Lungs: Stable diffuse opacities bilaterally. Pleura: No effusion. No pneumothorax. Cardiomediastinal contours: Unremarkable Bones: Unremarkable IMPRESSION: 1. Stable diffuse opacities bilaterally suspicious for multifocal pneumonia. 2. Enteric tube courses below the diaphragm with side hole near the GE junction. Recommend at least 5 cm advancement. Other lines and tubes are described above.
[2024-03-11] MEDS: PIPERACILLIN-TAZOB 3.375GM 100 ML IV SCH (21:31)
--- NOTE | 2024-03-11 22:20 | DVHSR ---
APPROVED REPORT EXAM: LIMITED Two-dimensional and M-mode echocardiogram with Doppler and color Doppler. Blood Pressure: 89/63 mmHg INDICATION Resp failure RISK FACTORS Height: 5'9", Weight: 120 DIMENSIONS LVDd3.5 (3.8-5.7cm)LA (2D) (1.9-4.0cm)Aortic Root (2.0-3.7cm) LVDs2.6 (2.5-4.0cm)LA (MM) (1.9-4.0cm)Aortic Cusp Exc (1.5-2.0cm) EF (%) 55.0 (55-70%)Rt. Atrium (1.9-4.0cm)Asc. Aorta cm IVSd0.8 (0.7-1.1cm)RV (D) (1.8-2.4cm) PWd0.9 (0.7-1.1cm) Mitral Valve MitralMitral Stenosis E/A ratio0.02D MVAcm2 Other Information Quality : Technically LimitedRhythm : Technically limited study due to body habitus, patient position and on vent. Conclusion Limited images obtained. Overall preserved left ventricular systolic function estimated ejection fraction 55%. Overall grossly normal right ventricular size and dimension. Grossly normal right ventricular systol ic function. No significant valve pathology was noted . No significant pericardial effusion.
[2024-03-12] VITALS (89 sets, daily range): BP systolic 56–165; BP diastolic 27–93; PULSE 75–122; RESP 16–28; TEMP 96.6–98.2; O2SAT 78–100
[2024-03-12 04:15] LABS: Basophils # (auto) 0 10 ^3/uL (0-0.2); Eosinophils # (auto) 0 10 ^3/uL (0-0.8); Hemoglobin 9.7 g/dL (13.5-17.5); Nucleated Red Blood Cells % 0.1 %; Red Cell Distribution Width 16.1 % (11.8-14.3)
[2024-03-12 04:19] LABS: Hematocrit 30.6 % (41.0-53.0); Lymphocytes # (auto) 1.6 10 ^3/uL (0.4-5.4); Lymphocytes % (auto) 7.7 % (10.0-50.0); Mean Corpuscular Hgb Conc. 31.7 g/dL (32.0-36.0); Mean Corpuscular Volume 82.2 fL (80.0-100.0); Monocytes # (auto) 0.4 10 ^3/uL (0-1.3); Monocytes % (auto) 1.9 % (0.0-12.0); Neutrophils # (auto) 18.6 10 ^3/uL (1.6-8.6); Neutrophils % (auto) 90.4 % (37.0-80.0); Platelet Count (auto) 155 10^3/uL (140-450); Red Blood Cells 3.72 10^6/uL (4.5-5.90); White Blood Cell 20.6 10^3/uL (4.4-10.8)
[2024-03-12 04:27] LABS: Alkaline Phosphatase 86 U/L (46-116); Anion Gap 10 (5-15); BUN/Creatinine Ratio 37.6 (10.0-20.0); Bilirubin, Total 0.5 mg/dL (0.2-1.0); Calcium 8.9 mg/dL (8.7-10.4); Carbon Dioxide 26 mmol/L (20-31); Cholesterol 72 mg/dL (< 200); LDL Cholesterol 26 mg/dL (< 100); Magnesium 1.9 mg/dL (1.6-2.6); Triglycerides 112 mg/dL (< 150)
[2024-03-12 04:31] LABS: INR 1.51 (0.9-1.15); Partial Thromboplastin Time 32.7 SEC (24.5-34.5); Prothrombin Time 15.5 sec (9.3-11.8)
[2024-03-12 04:33] LABS: Alanine Aminotransferase < 9 U/L (7-40); Albumin 2.3 g/dL (3.2-4.8); Aspartate Aminotransferase < 8 U/L (13-40); Blood Urea Nitrogen 35 mg/dL (9-23); Chloride 111 mmol/L (98-107); Glucose 242 mg/dL (74-106); HDL Cholesterol 23 mg/dL (40-59); Potassium 3.1 mmol/L (3.5-5.1); Sodium 147 mmol/L (136-145); Total Protein 5.6 g/dL (5.7-8.2)
[2024-03-12] MEDS: SODIUM CHLORIDE 0.9% 1,000 ML IV ONE (04:45)
[2024-03-12 05:01] LABS: Lipase 20 U/L (12-53)
[2024-03-12] MEDS: PROPOFOL 100 ML IV SCH (05:30)
[2024-03-12] MEDS: POTASSIUM CHL 20MEQ/100ML 100 ML IV ONE ×3 (05:30→10:12)
[2024-03-12] MEDS: PROPOFOL 100 ML IV ONE (06:22)
[2024-03-12 07:35] LABS: Base Excess -1.7 mmol/L (-2.0-3.0)
[2024-03-12] MEDS ORDERED: DEXTROSE (50%) 50ML SYRG IV PRN (08:30)
[2024-03-12] MEDS: SODIUM CHLORIDE 0.9% 500 ML IV ONE (08:51)
[2024-03-12] MEDS: Glucerna 1.2 Cal 1Liter BOTTLE GT SCH (08:56)
--- NOTE | 2024-03-12 09:51 | DVHPN2 ---
Subjective Intubated and sedated FiO2 35% PEEP is 5 Changes from previous H/P or p: Changes Objective Vitals Vital Signs Date Time Temp Pulse Resp B/P (MAP) Pulse Ox O2 Delivery O2 Flow Rate FiO2 03/12/24 09:28 104 20 92/61 (71) 100 35 03/12/24 07:00 97.2 207.0 03/12/24 06:00 Mechanical Ventilator+ Intake/Output Intake and Output 03/12/24 07:00 Intake Total 1908.610 ml Output Total 115 ml Balance 1793.610 ml Intake Oral 0 ml IV Total 1908.610 ml Output Urine Total 115 ml General Appearance: Other (Intubated and sedated) Lungs: Other (Bilateral rhonchi) Cardiovascular: Regular rate, Normal S1, Normal S2 Abdomen: Normal bowel sounds, Soft, No tenderness Extremities: No edema Medications Current Medications Medications Dose Ordered Sig/Hunter Route Start Time Stop Time Status Last Admin Dose Admin Norepinephrine Bitartrate 250 ml @ 3.75 mls/hr Q24H IV 03/11/24 03:45 03/12/24 08:50 18.75 MLS/HR Pantoprazole Sodium 40 mg DAILY IV 03/12/24 10:00 Morphine Sulfate 2 mg Q4HP PRN IV 03/11/24 16:30 Ipratropium [place] 0.5 mg Q4HR NEB 03/11/24 18:00 03/12/24 07:59 0.5 MG Enoxaparin Sodium 30 mg DAILY SC 03/12/24 10:00 Piperacillin Sod/ Tazobactam Sod 100 ml @ 25 mls/hr Q8HR IV 03/11/24 22:00 03/12/24 06:50 25 MLS/HR Vancomycin HCl 0 ml @ 0 mls/hr UD IV 03/11/24 16:30 Enteral Nutritional Formula 1,000 ml 40ML/HR GT 03/11/24 16:30 03/12/24 08:56 1,000 ML Vancomycin HCl 250 ml @ 125 mls/hr Q12H IV 03/11/24 17:00 03/12/24 06:13 125 MLS/HR Fentanyl Citrate 250 ml @ 2.5 mls/hr Q24H IV 03/11/24 16:45 03/11/24 18:00 2.5 MLS/HR Propofol 100 ml @ 1.635 mls/ hr Q24H IV 03/12/24 05:30 Diagnostic Test (Pha) 1 strip ACHS 03/12/24 11:30 Insulin Human Regular ACHS SC 03/12/24 11:30 Dextrose 50 ml UD PRN IV 03/12/24 08:30 Laboratory Results Laboratory Tests 03/12/24 03:42 Chemistry Test 03/11/24 17:51 03/12/24 03:42 Calcium Level 8.8 mg/dL (8.7-10.4) 8.9 mg/dL (8.7-10.4) Albumin 2.3 g/dL (3.2-4.8) L Magnesium Level 1.9 mg/dL (1.6-2.6) Total Protein 5.6 g/dL (5.7-8.2) L Coagulation Test 03/12/24 03:42 Prothrombin Time 15.5 sec (9.3-11.8) H Prothrombin Time INR 1.51 (0.9-1.15) H Activated Partial Thromboplast Time 32.7 SEC (24.5-34.5) Lipid panel Test 03/12/24 03:42 Cholesterol Level 72 mg/dL (< 200) HDL Cholesterol 23 mg/dL (40-59) L Lipase 20 U/L (12-53) Triglycerides Level 112 mg/dL (< 150) LFT Test 03/12/24 03:42 Alanine Aminotransferase (ALT) < 9 U/L (7-40) Alkaline Phosphatase 86 U/L (46-116) Aspartate Amino Transferase (AST) < 8 U/L (13-40) L Total Bilirubin 0.5 mg/dL (0.2-1.0) HgA1c, TSH Test 03/12/24 03:42 Hemoglobin A1c 6.1 % A1C (<5.7) H Thyroid Stimulating Hormone (TSH) 1.60 uIU/mL (0.55-4.78) Urinalysis Test 03/11/24 04:00 Urine Color Yellow (Yellow) Urine Clarity Turbid (Clear) H Urine pH 6.0 (5.0-9.0) Urine Specific [place] 1.016 (1.001-1.035) Urine Protein 1+ (Negative) H Urine Ketones Negative (Negative) Urine Blood 1+ /uL (Negative) H Urine Nitrite Negative (Negative) Urine Bilirubin Negative (Negative) Urine Urobilinogen 2 mg/dL (Negative) H Urine Leukocyte Esterase 3+ /uL (Negative) Urine RBC 24 /hpf (0 - 3) Urine WBC 280 /hpf (0 - 3) Urine Squamous Epithelial Cells Few /hpf (<5) Urine Bacteria Many /hpf (None Seen) H Urine Mucus Few (None Seen) Urine Glucose Normal mg/dL (Normal) Blood Gas Results Test 03/11/24 18:09 03/12/24 07:20 Arterial Blood pH 7.478 (7.350-7.450) 7.433 (7.350-7.450) FiO2 % 50.0 35.0 Microbiology Microbiology Date/Time Source Procedure Growth Status 03/11/24 03:24 Blood Blood Culture - Preliminary NO GROWTH AFTER 24 HOURS OF INCUBATION. Resulted 03/11/24 03:20 Sputum Endotracheal Wash Gram Stain - Final Resulted 03/11/24 03:20 Sputum Endotracheal Wash Respiratory Culture Pending Resulted Assessment/Plan Assessment/Plan Acute hypoxic respiratory failure Sepsis with septic shock UTI Multi lobar pneumonia Hypernatremia Hypoxemia Bed ridden x 2 years Large AAA 5.9 cm Constipation Diffuse mixed lytic osseous lesions suspicious for metastatic disease Bacteremia Gram-positive cocci in clusters Plan Admit to ICU Mechanical ventilation Broad-spectrum antibiotics Zosyn and vancomycin Sedation as needed: Discontinue Versed and start fentanyl drip, add propofol if needed DVT prophylaxis with Lovenox GI prophylaxis with Protonix IV Echo Get urine culture and blood culture and sputum culture Norepinephrine p.r.n. for blood pressure support Pulmonary consult Start tube feeding Discussed with his son over the phone Full code 03/12/2024: Hypokalemia and hypomagnesemia: Replace potassium and magnesium Sedation: Fentanyl and propofol as needed, titrate to RASS -3 Decreased urine output: Give bolus 500 mL, start feeding Broad-spectrum antibiotics: Vancomycin and Zosyn DVT prophylaxis: Lovenox GI prophylaxis: Protonix Full code Discussed with the son over the phone yesterday, full code for now Plan discussed with: Son, Other My Orders Orders - ALBERTO FREEMAN MD Procedure Category Date Status Time Admit ADMIT 03/11/24 Transmitted 15:04 Emergency Dysrhythmia SMITHA 03/11/24 In Process Protocol 15:04 Rhythm Strips Once SMITHA 03/11/24 In Process Every Shift 15:04 *Consult CONS 03/11/24 Transmitted / 16:16 Pantoprazole PHA 03/12/24 In Process (Protonix) 10:00 Urine Bacterial BRIDGET 03/11/24 In Process Culture 16:17 Chest Xray 1 View XY 03/11/24 Resulted 16:19 Pulse Ox Assessment SMITHA 03/11/24 In Process 16:18 Strict Aspiration SMITHA 03/11/24 In Process Precautions 16:18 Nasogastric Tube SMITHA 03/11/24 In Process Management 16:18 Morphine Sulfate PHA 03/11/24 In Process Injection 16:30 Ipratropium Medneb PHA 03/11/24 In Process (Atrovent Medneb) 18:00 Record Daily Weaning SMITHA 03/11/24 In Process Assessmen 16:18 Sequential SMITHA 03/11/24 In Process Compression Device 16:18 Enoxaparin Sodium PHA 03/12/24 In Process (Lovenox) 10:00 Oral Care Q4hrs Using SMITHA 03/11/24 In Process Oral Kit 16:18 Readiness To Extubate SMITHA 03/11/24 In Process Per Rt P 16:18 Simón Stockings SMITHA 03/11/24 In Process 16:18 Echo 2d Mode Cardiac US 03/11/24 Resulted DOP 16:24 Piperacillin-Tazob PHA 03/11/24 In Process 3.375gm (Zosyn 3.375g 22:00 Vancomycin Per PHA 03/11/24 In Process Pharmacy 16:30 Nutritional PHA 03/11/24 In Process Supplements (Glucerna 16:30 Vancomycin 1gm/250ml PHA 03/11/24 In Process Kit 17:00 Fentanyl Drip PHA 03/11/24 In Process 2500mcg/250mlns 16:45 Vancomycin,Trough LAB 03/12/24 Logged 16:00 Vancomycin Per SMITHA 03/12/24 In Process Pharmacy Protoc 17:00 Abg W/ Co-Ox RT 03/11/24 Logged 16:46 * Dietary Consult CONS 03/11/24 Transmitted 18:14 Potassium Chl PHA 03/12/24 In Process 20meq/100ml 08:30 * Pharmacy Delivery Driver CONS 03/12/24 Transmitted Consult Glucose Blood PHA 03/12/24 In Process (Accu-Chek Comfort 11:30 Insulin R (Human) PHA 03/12/24 In Process (Insulin R) 11:30 Dextrose 50% Syringe PHA 03/12/24 In Process 08:30 * Wound Consult CONS 03/12/24 Transmitted Stool Occult Blood LAB 03/12/24 Logged 08:29 Date of Service: Mar 12, 2024 Billing Provider: ALBERTO FREMEAN MD Common Visit Codes: NOT BILLABLE ALBERTO FREEMAN MD Mar 12, 2024 09:51
[2024-03-12] MEDS: PANTOPRAZOLE 40 MG/10 ML VIAL INJ IV SCH (10:05)
[2024-03-12] MEDS: ENOXAPARIN SOD 30 MG/0.3 ML SYRINGE SC SCH (10:06)
[2024-03-12] MEDS: MAGNESIUM SULFATE 1GM/100ML 100 ML IV ONE (10:12)
[2024-03-12] MEDS: LACTATED RINGER'S 1,000 ML IV SCH (11:07)
[2024-03-12] MEDS: FUROSEMIDE 20 MG/2 ML VIAL IV ONE (11:18)
[2024-03-12] MEDS: InsuLIN REG 1unit/0.01ml Soln (100units/ml) SC SCH (11:29)
[2024-03-12] MEDS: ACCU-CHEK COMFORT CURVE STRIP VI SCH (11:30)
--- NOTE | 2024-03-12 14:34 | ECG ---
[facility] Test Date: 2024-03-12 Test Time: 04:25:49 Pat Name: ARLINE WHITE Department: er Room: [address] [place] [address] A Gender: M Second Cutter: [id number] : [id number] Requested By: GERRY CHAMBERS Order Number: [id number] Reading MD: Sebastian Jane Measurements Intervals [place] Rate: 124 P: 92 [place]: 173 QRS: 82 QRSD: 53 T: 0 QT: 269 QTc: 387 Interpretive Statements Atrial fibrillation with rapid ventricular response Borderline right axis deviation Nonspecific repol abnormality, diffuse leads Electronically Signed On 03-12-2024 16:32:17 PST by Sebastian Jane Please click the below link to view image of tracing.
[2024-03-12] MEDS: VASOPRESSIN 20 UNITS in SODIUM CHL 0.9% 99 ML IV SCH (14:51)
--- NOTE | 2024-03-12 15:23 | DVHINCON2 ---
Date of service: Mar 12, 2024 Referring Physician Hospitalist Reason for Consultation Acute kidney injury History of Present Illness 83-year-old white male with no known past medical history and no long-term medical care presents to the hospital with several days of of weakness which culminated in change in mental status. He was brought in by family due to altered mental state. His presentation to the hospital was notable for acute respiratory distress status post intubation. He is currently in ICU on two pressors. Nephrology was consulted due to decreased urinary output Past Medical History No known previous history Allergies: Coded Allergies: NO KNOWN ALLERGIES (Unverified , 03/11/24) Current Medications Current Medications Medications (Trade) Dose Ordered Sig/Hunter Route PRN Reason Start Time Stop Time Status Last Admin Pantoprazole Sodium (Protonix) 40 mg DAILY IV 03/12/24 10:00 03/12/24 10:05 Morphine Sulfate 2 mg Q4HP PRN IV SEVERE PAIN (7-10 PAIN SCALE) 03/11/24 16:30 Ipratropium [place] (Atrovent Medneb) 0.5 mg Q4HR NEB 03/11/24 18:00 03/12/24 09:53 Enoxaparin Sodium (Lovenox) 30 mg DAILY SC 03/12/24 10:00 03/12/24 10:06 Piperacillin Sod/ Tazobactam Sod 100 ml @ 25 mls/hr Q8HR IV 03/11/24 22:00 03/12/24 14:50 Vancomycin HCl 0 ml @ 0 mls/hr UD IV 03/11/24 16:30 Enteral Nutritional Formula (Glucerna 1.2 Devaughn) 1,000 ml 40ML/HR GT 03/11/24 16:30 03/12/24 08:56 Vancomycin HCl 250 ml @ 125 mls/hr Q12H IV 03/11/24 17:00 03/12/24 12:20 DC 03/12/24 06:13 Fentanyl Citrate 250 ml @ 2.5 mls/hr Q24H IV 03/11/24 16:45 03/11/24 18:00 Propofol 100 ml @ 1.635 mls/ hr Q24H IV 03/12/24 05:30 Diagnostic Test (Pha) (Accu-Chek Comfort Curve T) 1 strip ACHS 03/12/24 11:30 03/12/24 11:30 Insulin Human Regular (InsuLIN R) ACHS SC 03/12/24 11:30 03/12/24 11:29 Dextrose 50 ml UD PRN IV Blood Sugar LESS THAN 60 03/12/24 08:30 Lactated Ringer's 1,000 ml @ 100 mls/hr Q10H IV 03/12/24 10:30 03/12/24 11:07 Vasopressin 20 units/Sodium Chloride 100 ml @ 9 mls/hr Q11H7M IV 03/12/24 14:45 03/12/24 14:51 Family History: Patient reports no known family medical history. Review of Systems Can not obtain due to critical illness H&P Exam Vital Signs/I&O Vital Sign Date Time Temp Pulse Resp B/P (MAP) Pulse Ox O2 Delivery O2 Flow Rate FiO2 03/12/24 14:51 82/56 03/12/24 14:00 22 97 Mechanical Ventilator+ 35 35 03/12/24 14:00 120 03/12/24 12:45 97.7 207.9 Intake and Output 03/11/24 03/12/24 19:00 07:00 Intake Total 1111.075 ml 797.535 ml Output Total 115 ml Balance 1111.075 ml 682.535 ml Intake Oral 0 ml IV Total 1111.075 ml 797.535 ml Output Urine Total 115 ml Physical Exam Elderly white male Intubated Sedated On two pressors Abdomen is soft Appears cachectic with decreased muscle tone No edema Tachycardic but regular rhythm Jimenez catheter has minimal by still yellow urine Decubitus sacral ulcer Labs/Diagnostic Data Labs/Diagnostic Data Laboratory Tests Test 03/12/24 11:27 03/12/24 07:20 03/12/24 06:54 03/12/24 03:42 Range/Units POC Glucose 221 H 217 H 70-106 mg/dl Blood Gas Specimen Type Arterial Blood Gas Sample Site Right radial Blood Gas Patient Temperature 37.0 Arterial Blood Date Drawn [id number] Arterial Blood pH 7.433 7.350-7.450 Arterial Blood Partial Pressure CO2 33.4 L 35.0-48.0 mmHg Arterial Blood Partial Pressure O2 91.9 83.0-108.0 mmHg Arterial Blood HCO3 21.8 21.0-28.0 mmol/L Arterial Blood Oxygen Saturation 96.8 94.0-98.0 % Arterial Blood Base Excess -1.7 -2.0-3.0 mmol/L Arterial Blood Oxyhemoglobin 96.7 94.0-98.0 % Arterial Blood Carboxyhemoglobin 0.1 L 0.5-1.5 % Arterial Blood Methemoglobin 0.0 0.0-1.5 % Will Test Modified Blood Gas Total Hemoglobin 12.80 L 13.5-17.5 g/dL Blood Gas Set Respiration Rate 18.0 Blood Gas Modality Vent - ac Blood Gas Spontaneous Rate 18 FiO2 % 35.0 Blood Gas Tidal Volume 500.0 Blood Gas Inspiratory Pressure 19.0 Blood Gas PEEP or CPAP 5.0 Bl Gas Inspiratory/Expiratory Ratio 1:3.3 Specimen Drawn By betsy rt White Blood Count 20.6 H 4.4-10.8 10^3/uL Red Blood Count 3.72 L 4.5-5.90 10^6/uL Hemoglobin 9.7 L 13.5-17.5 g/dL Hematocrit 30.6 L 41.0-53.0 % Mean Corpuscular Volume 82.2 80.0-100.0 fL Mean Corpuscular Hemoglobin 26.0 L 28.0-32.0 pg Mean Corpuscular Hemoglobin Concent 31.7 L 32.0-36.0 g/dL Red Cell Distribution Width 16.1 H 11.8-14.3 % Platelet Count 155 140-450 10^3/uL Mean Platelet Volume 8.5 6.9-10.8 fL Neutrophils (%) (Auto) 90.4 H 37.0-80.0 % Lymphocytes (%) (Auto) 7.7 L 10.0-50.0 % Monocytes (%) (Auto) 1.9 0.0-12.0 % Eosinophils (%) (Auto) 0.0 0.0-7.0 % Basophils (%) (Auto) 0.0 0.0-2.0 % Neutrophils # (Auto) 18.6 H 1.6-8.6 10 ^3/uL Lymphocytes # (Auto) 1.6 0.4-5.4 10 ^3/uL Monocytes # (Auto) 0.4 0-1.3 10 ^3/uL Eosinophils # (Auto) 0 0-0.8 10 ^3/uL Basophils # (Auto) 0 0-0.2 10 ^3/uL Nucleated Red Blood Cells 0.1 % Prothrombin Time 15.5 H 9.3-11.8 sec Prothrombin Time INR 1.51 H 0.9-1.15 Activated Partial Thromboplast Time 32.7 24.5-34.5 SEC Sodium Level 147 H 136-145 mmol/L Potassium Level 3.1 L 3.5-5.1 mmol/L Chloride Level 111 H 98-107 mmol/L Carbon Dioxide Level 26 20-31 mmol/L Anion Gap 10 5-15 Blood Urea Nitrogen 35 H 9-23 mg/dL Creatinine 0.93 0.700-1.30 mg/dL Glomerular Filtration Rate Calc 82 >90 mL/min BUN/Creatinine Ratio 37.6 H 10.0-20.0 Serum Glucose 242 H 74-106 mg/dL Hemoglobin A1c 6.1 H <5.7 % A1C Calcium Level 8.9 8.7-10.4 mg/dL Magnesium Level 1.9 1.6-2.6 mg/dL Total Bilirubin 0.5 0.2-1.0 mg/dL Aspartate Amino Transferase (AST) < 8 L 13-40 U/L Alanine Aminotransferase (ALT) < 9 7-40 U/L Alkaline Phosphatase 86 46-116 U/L Total Protein 5.6 L 5.7-8.2 g/dL Albumin 2.3 L 3.2-4.8 g/dL Triglycerides Level 112 < 150 mg/dL Cholesterol Level 72 < 200 mg/dL LDL Cholesterol 26 < 100 mg/dL HDL Cholesterol 23 L 40-59 mg/dL Lipase 20 12-53 U/L Thyroid Stimulating Hormone (TSH) 1.60 0.55-4.78 uIU/mL Test 03/12/24 03:36 03/11/24 18:09 03/11/24 17:51 03/11/24 09:18 Range/Units Ammonia 34 H 11-32 umol/L Blood Gas Specimen Type Arterial Blood Gas Sample Site Left radial Blood Gas Patient Temperature 37.0 Arterial Blood Date Drawn [id number] Arterial Blood pH 7.478 H 7.350-7.450 Arterial Blood Partial Pressure CO2 32.4 L 35.0-48.0 mmHg Arterial Blood Partial Pressure O2 122.9 H 83.0-108.0 mmHg Arterial Blood HCO3 23.5 21.0-28.0 mmol/L Arterial Blood Oxygen Saturation 98.3 H 94.0-98.0 % Arterial Blood Base Excess 0.4 -2.0-3.0 mmol/L Arterial Blood Oxyhemoglobin 97.7 94.0-98.0 % Arterial Blood Carboxyhemoglobin 0.1 L 0.5-1.5 % Arterial Blood Methemoglobin 0.5 0.0-1.5 % Will Test Modified Blood Gas Total Hemoglobin 10.50 L 13.5-17.5 g/dL Blood Gas Set Respiration Rate 18.0 Blood Gas Modality Vent - ac FiO2 % 50.0 Blood Gas Tidal Volume 500.0 Blood Gas PEEP or CPAP 5.0 White Blood Count 22.1 H 4.4-10.8 10^3/uL Red Blood Count 3.88 L 4.5-5.90 10^6/uL Hemoglobin 9.9 L 13.5-17.5 g/dL Hematocrit 33.0 L 41.0-53.0 % Mean Corpuscular Volume 85.0 80.0-100.0 fL Mean Corpuscular Hemoglobin 25.6 L 28.0-32.0 pg Mean Corpuscular Hemoglobin Concent 30.1 L 32.0-36.0 g/dL Red Cell Distribution Width 17.0 H 11.8-14.3 % Platelet Count 171 140-450 10^3/uL Mean Platelet Volume 8.2 6.9-10.8 fL Neutrophils (%) (Auto) 86.7 H 37.0-80.0 % Lymphocytes (%) (Auto) 10.1 10.0-50.0 % Monocytes (%) (Auto) 3.0 0.0-12.0 % Eosinophils (%) (Auto) 0.0 0.0-7.0 % Basophils (%) (Auto) 0.2 0.0-2.0 % Neutrophils # (Auto) 19.1 H 1.6-8.6 10 ^3/uL Lymphocytes # (Auto) 2.2 0.4-5.4 10 ^3/uL Monocytes # (Auto) 0.7 0-1.3 10 ^3/uL Eosinophils # (Auto) 0 0-0.8 10 ^3/uL Basophils # (Auto) 0 0-0.2 10 ^3/uL Nucleated Red Blood Cells 0.1 % Sodium Level 147 H 136-145 mmol/L Potassium Level 3.5 3.5-5.1 mmol/L Chloride Level 112 H 98-107 mmol/L Carbon Dioxide Level 25 20-31 mmol/L Anion Gap 10 5-15 Blood Urea Nitrogen 31 #H 9-23 mg/dL Creatinine 0.79 0.700-1.30 mg/dL Glomerular Filtration Rate Calc 89 >90 mL/min BUN/Creatinine Ratio 39.2 H 10.0-20.0 Serum Glucose 269 H 74-106 mg/dL Calcium Level 8.8 8.7-10.4 mg/dL Troponin I High Sensitivity 27 </=54 ng/L Test 03/11/24 06:01 03/11/24 05:14 03/11/24 04:21 03/11/24 04:00 Range/Units White Blood Count 19.2 H 4.4-10.8 10^3/uL Red Blood Count 3.77 L 4.5-5.90 10^6/uL Hemoglobin 9.8 L 13.5-17.5 g/dL Hematocrit 31.2 L 41.0-53.0 % Mean Corpuscular Volume 82.6 80.0-100.0 fL Mean Corpuscular Hemoglobin 26.0 L 28.0-32.0 pg Mean Corpuscular Hemoglobin Concent 31.4 L 32.0-36.0 g/dL Red Cell Distribution Width 16.2 H 11.8-14.3 % Platelet Count 193 140-450 10^3/uL Mean Platelet Volume 8.0 6.9-10.8 fL Neutrophils (%) (Auto) 37.0-80.0 % Lymphocytes (%) (Auto) 10.0-50.0 % Monocytes (%) (Auto) 0.0-12.0 % Basophils (%) (Auto) 0.0-2.0 % Neutrophils # (Auto) 1.6-8.6 10 ^3/uL Lymphocytes # (Auto) 0.4-5.4 10 ^3/uL Monocytes # (Auto) 0-1.3 10 ^3/uL Differential Total Cells Counted 100.0 100 Neutrophils % (Manual) 82 H 37.0-80.0 Band Neutrophils % (Manual) 7 Lymphocytes % (Manual) 7 L 10.0-50.0 Monocytes % (Manual) 4 0-12 Eosinophils % (Manual) 0 0-7 Basophils % (Manual) 0 0.0-2.0 Metamyelocytes % (manual) 0 Myelocytes % (Manual) 0 Promyelocytes % (Manual) 0 Blast Cells % (Manual) 0 Reactive Lymphocytes 0 Platelet Estimate Adequate Lactic Acid Level 2.8 *H 0.4-2.0 mmol/L Troponin I High Sensitivity 28 </=54 ng/L B-Type Natriuretic Peptide 262.73 0-100 pg/mL Influenza Type A Antigen Negative Negative Influenza Type B Antigen Negative Negative SARS-CoV-2 Antigen (Rapid) Negative NEGATIVE Blood Gas Specimen Type Arterial Blood Gas Sample Site Right radial Blood Gas Patient Temperature 37.0 Arterial Blood Date Drawn Arterial Blood pH 7.504 H 7.350-7.450 Arterial Blood Partial Pressure CO2 33.0 L 35.0-48.0 mmHg Arterial Blood Partial Pressure O2 172.5 H 83.0-108.0 mmHg Arterial Blood HCO3 25.4 21.0-28.0 mmol/L Arterial Blood Oxygen Saturation 99.1 H 94.0-98.0 % Arterial Blood Base Excess 2.5 -2.0-3.0 mmol/L Arterial Blood Oxyhemoglobin 98.2 H 94.0-98.0 % Arterial Blood Carboxyhemoglobin 0.3 L 0.5-1.5 % Arterial Blood Methemoglobin 0.6 0.0-1.5 % Will Test Modified Blood Gas Total Hemoglobin 10.40 L 13.5-17.5 g/dL Blood Gas Set Respiration Rate 18.0 Blood Gas Modality Vent - ac Blood Gas Spontaneous Rate 31 FiO2 % 100.0 Blood Gas Tidal Volume 500.0 Blood Gas Spontaneous Tidal Volume 540 Blood Gas Inspiratory Pressure 30.0 Blood Gas PEEP or CPAP 5.0 Bl Gas Inspiratory/Expiratory Ratio 1:1.3 Urine Color Yellow Yellow Urine Clarity Turbid H Clear Urine pH 6.0 5.0-9.0 Urine Specific [place] 1.016 1.001-1.035 Urine Protein 1+ H Negative Urine Ketones Negative Negative Urine Blood 1+ H Negative /uL Urine Nitrite Negative Negative Urine Bilirubin Negative Negative Urine Urobilinogen 2 H Negative mg/dL Urine Leukocyte Esterase 3+ Negative /uL Urine RBC 24 0 - 3 /hpf Urine WBC 280 0 - 3 /hpf Urine Squamous Epithelial Cells Few <5 /hpf Urine Bacteria Many H None Seen /hpf Urine Mucus Few None Seen Urine Glucose Normal Normal mg/dL Urine Opiates Screen Neg NEGATIVE Urine Fentanyl Screen Neg NEGATIVE Urine Barbiturates Screen Neg NEGATIVE Urine Phencyclidine Screen Neg NEGATIVE Urine Amphetamines Screen Neg NEGATIVE Urine Benzodiazepines Screen Neg NEGATIVE Urine Cocaine Screen Neg NEGATIVE Urine Cannabinoids Screen Neg NEGATIVE Test 03/11/24 03:24 Range/Units Sodium Level 149 H 136-145 mmol/L Potassium Level 4.8 3.5-5.1 mmol/L Chloride Level 111 H 98-107 mmol/L Carbon Dioxide Level 23 20-31 mmol/L Anion Gap 15 5-15 Blood Urea Nitrogen 20 9-23 mg/dL Creatinine 0.59 L 0.700-1.30 mg/dL Glomerular Filtration Rate Calc 97 >90 mL/min BUN/Creatinine Ratio 33.9 H 10.0-20.0 Serum Glucose 249 H 74-106 mg/dL Lactic Acid Level 4.6 *H 0.4-2.0 mmol/L Calcium Level 8.7 8.7-10.4 mg/dL Magnesium Level 1.9 1.6-2.6 mg/dL Total Bilirubin 0.5 0.2-1.0 mg/dL Aspartate Amino Transferase (AST) 16 13-40 U/L Alanine Aminotransferase (ALT) < 9 7-40 U/L Alkaline Phosphatase 88 46-116 U/L Troponin I High Sensitivity 21 </=54 ng/L Total Protein 5.6 L 5.7-8.2 g/dL Albumin 2.4 L 3.2-4.8 g/dL Plasma/Serum Blood Alcohol < 3.0 <10 mg/dL Assessment Acute kidney injury hemodynamically mediated highly likely prerenal etiology Significant hypotension noted Septic shock due to multiple sources including decubitus ulcer as well as urinary tract infection Protein calorie malnutrition Pneumonia Agree with IV fluid hydration Pressors to maintain a mean arterial pressure greater than 65 Currently on antibiotics for for infections recommend close monitoring of troughs including vancomycin as Zosyn and vancomycin combination has higher risk for nephrotoxicity Avoid contrast studies at this time Strict Is&Os Prognosis is poor due to decreased functional status Critical care time spent 35 minutes Plan discussed with: Other ESTEFANÍA TAPIA MD Mar 12, 2024 15:22
[2024-03-12 15:59] LABS: Potassium 3.8 mmol/L (3.5-5.1)
[2024-03-12 16:00] LABS: Anion Gap 10 (5-15); Carbon Dioxide 25 mmol/L (20-31)
[2024-03-12 16:04] LABS: Creatinine, Urine 27.92 mg/dL (30.0-125.0)
[2024-03-12 16:06] LABS: BUN/Creatinine Ratio 40.9 (10.0-20.0)
[2024-03-12 16:20] LABS: Blood Urea Nitrogen 38 mg/dL (9-23); Calcium 8.6 mg/dL (8.7-10.4); Chloride 112 mmol/L (98-107); Glucose 161 mg/dL (74-106); Sodium 147 mmol/L (136-145)
--- NOTE | 2024-03-12 17:35 | DVHNC2 ---
Procedure - Bronchoscopy procedure note: Indications: Bilateral lower lobe atelectasis, Possible mucous plugging. Medicines: See [employer] notes. Complications: None Procedure: Patient medications and allergies reviewed. The risks and benefits of the procedure and the sedation options and risk were discussed with the patient's healthcare proxy. All questions were answered and informed consent was obtained. Patient identification and proposed procedure were verified prior to the procedure by the physician, and a nurse, and the respiratory therapist in ICU room. The heart rate, respiratory rate, oxygen saturations, blood pressure, adequacy of pulmonary ventilation, and response to care were monitored throughout the procedure. The physical status of the patient was reassessed after the procedure. After obtaining informed consent, the bronchoscope was introduced through the endotracheal tube and advanced into the trachea bronchial tree of both lungs. The procedure was accomplished without difficulty. The patient tolerated the procedure well. Findings: The trachea is in normal caliber. The matt is sharp. The tracheobronchial tree of the right lung was examined to at least the first subsegmental level. The bronchial mucosa and anatomy in the right lung are normal. There are no endobronchial lesions. There was copious whitish secretions from right main stem bronchus onward throughout R6-R10. The left upper lobe, lingula, and left lower lobe were examined to at least the first subsegmental level. Bronchial mucosa and anatomy in the left upper lobe and lingula are normal. There were no endobronchial lesions. There were no secretions in right lower lobe. There was no active bleeding at the completion of the procedure. Estimated blood loss: Less than 5 mL. Impression: Right lower lobe atelectasis due to mucous plugging Mucous plugging from R6-R10 Recommendation: Pulmonary toileting. Procedure codes: 20179, bronchoscopy, rigid and flexible, including fluoroscopic guidance, one performed; with bronchial endobronchial removal of mucous plugging, single or multiple sites GERRY FERRO MD Mar 12, 2024 17:35
[2024-03-12] MEDS: FUROSEMIDE 40 MG/4 ML VIAL IV ONE (17:56)
--- NOTE | 2024-03-12 18:09 | DVH ---
EXAM: XY CHEST PORTABLE TECHNIQUE: Single frontal chest radiograph CLINICAL HISTORY: post bronchocopy COMPARISON: XY CHEST XRAY 1 VIEW on DOS: 03/11/24, XY CHEST XRAY 1 VIEW on DOS: 03/11/24, XY CHEST XRAY 1 VIEW on DOS: 03/11/24 Findings/Impression: Frontal chest radiograph demonstrates no acute osseous or superficial soft tissue abnormalities. Endotracheal tube terminates 3.1 cm from the matt. Enteric tube is overlying the plane of the stoma ch. Left sided IJ catheter terminates near the superior cavoatrial junction. The trachea is midline. The cardiac silhouette is within normal limits. Widened mediastinum, unchanged. Multifocal pneumonia, unchanged. No pneumothorax or pleural effusions. Gaseous dilated bowel.
--- NOTE | 2024-03-12 20:29 | DVHINCON2 ---
Date of service: Mar 12, 2024 Referring Physician Graham Espitia MD Reason for Consultation Acute hypoxic respiratory failure, multilobar pneumonia History of Present Illness An 83-year-old man with no stated past medical history, on no chronic medications and not following up with any doctor for medical care, who was brought to the ED by son on 03/11/24 due to altered mentation. Per report, his mental status started to decline 2 weeks ago. In the ED pt was hypotensive and started on Levophed drip. Pt was tachycardic, he was intubated and placed on me chanical ventilator. Labs were significant for UA positive for UTI. WBC 9.2, l actic acid 4.6. Chest x-ray showed pneumonia. Of note, pt is a prior smoker. Patient was thus admitted for further care and pulmonary consultation is reque sted for evaluation and management due to these findings. Review of Systems: 14-point review of systems negative unless otherwise noted above. Past Medical History: Denies Past Surgical History: None. Medications: None. Allergies: No known drug allergies. Family History: No family history of premature CAD. No family history of lung disorders. Social History: Former smoker. No alcohol or illicit drug use. Family History: Patient reports no known family medical history. Allergies: Coded Allergies: NO KNOWN ALLERGIES (Unverified , 03/11/24) Current Medications Current Medications Medications (Trade) Dose Ordered Sig/Hunter Route PRN Reason Start Time Stop Time Status Last Admin Pantoprazole Sodium (Protonix) 40 mg DAILY IV 03/12/24 10:00 03/12/24 10:05 Enoxaparin Sodium (Lovenox) 30 mg DAILY SC 03/12/24 10:00 03/12/24 10:06 Piperacillin Sod/ Tazobactam Sod 100 ml @ 25 mls/hr Q8HR IV 03/11/24 22:00 03/12/24 14:50 Propofol 100 ml @ 1.635 mls/ hr Q24H IV 03/12/24 05:30 Diagnostic Test (Pha) (Accu-Chek Comfort Curve T) 1 strip ACHS 03/12/24 11:30 03/12/24 17:00 Insulin Human Regular (InsuLIN R) ACHS SC 03/12/24 11:30 03/12/24 17:56 Dextrose 50 ml UD PRN IV Blood Sugar LESS THAN 60 12/4/24 08:30 Lactated Ringer's 1,000 ml @ 100 mls/hr Q10H IV 03/12/24 10:30 03/12/24 11:07 Vasopressin 20 units/Sodium Chloride 100 ml @ 9 mls/hr Q11H7M IV 03/12/24 14:45 03/12/24 14:51 Vital Signs Vital Signs Date Time Temp Pulse Resp B/P (MAP) Pulse Ox O2 Delivery O2 Flow Rate FiO2 03/12/24 18:45 97.5 99 18 126/66 (86) 100 207.5 03/12/24 18:13 30 03/12/24 18:00 Mechanical Ventilator+ Physical Exam Gen.: Patient lying in bed in medical ICU. Sedated, intubated on mechanical ventilator. Head: Normocephalic, atraumatic. Eyes: PERRLA. Ears: Normal external anatomy. Throat: Endotracheal tube and orogastric tube in place. Neck: Supple, trachea midline. Chest: Transmitted breath sounds bilaterally. Decreased air entry bilaterally. No wheezing. Bibasilar crackles. Cardiovascular: Positive S1, positive S2. Regular rate and rhythm. Abdomen: Positive bowel sounds in all 4 quadrants. Soft, nontender, nondistended. : Jimenez in place. Normal external genitalia. Rectal: Deferred. Skin: Warm, dry. Intact. Extremities: 2+ radial pulses bilaterally. No lower extremity edema. Neuro: Sedated. Labs/Diagnostic Data Labs Test 03/12/24 17:45 03/12/24 15:37 03/12/24 15:25 03/12/24 07:20 Range/Units POC Glucose 141 H 70-106 mg/dl Sodium Level 147 H 136-145 mmol/L Potassium Level 3.8 3.5-5.1 mmol/L Chloride Level 112 H 98-107 mmol/L Carbon Dioxide Level 25 20-31 mmol/L Anion Gap 10 5-15 Blood Urea Nitrogen 38 H 9-23 mg/dL Creatinine 0.93 0.700-1.30 mg/dL Glomerular Filtration Rate Calc 82 >90 mL/min BUN/Creatinine Ratio 40.9 H 10.0-20.0 Serum Glucose 161 H 74-106 mg/dL Calcium Level 8.6 L 8.7-10.4 mg/dL Vancomycin Level Trough 32.8 *H 5-10 ug/mL Urine Creatinine 27.92 L 30.0-125.0 mg/dL Urine Sodium 82 40-220 mmol/L Blood Gas Specimen Type Arterial Blood Gas Sample Site Right radial Blood Gas Patient Temperature 37.0 Arterial Blood Date Drawn Arterial Blood pH 7.433 7.350-7.450 Arterial Blood Partial Pressure CO2 33.4 L 35.0-48.0 mmHg Arterial Blood Partial Pressure O2 91.9 83.0-108.0 mmHg Arterial Blood HCO3 21.8 21.0-28.0 mmol/L Arterial Blood Oxygen Saturation 96.8 94.0-98.0 % Arterial Blood Base Excess -1.7 -2.0-3.0 mmol/L Arterial Blood Oxyhemoglobin 96.7 94.0-98.0 % Arterial Blood Carboxyhemoglobin 0.1 L 0.5-1.5 % Arterial Blood Methemoglobin 0.0 0.0-1.5 % Will Test Modified Blood Gas Total Hemoglobin 12.80 L 13.5-17.5 g/dL Blood Gas Set Respiration Rate 18.0 Blood Gas Modality Vent - ac Blood Gas Spontaneous Rate 18 FiO2 % 35.0 Blood Gas Tidal Volume 500.0 Blood Gas Inspiratory Pressure 19.0 Blood Gas PEEP or CPAP 5.0 Bl Gas Inspiratory/Expiratory Ratio 1:3.3 Specimen Drawn By betsy rt Test 03/12/24 03:42 03/12/24 03:36 03/11/24 09:18 03/11/24 06:01 Range/Units White Blood Count 20.6 H 4.4-10.8 10^3/uL Red Blood Count 3.72 L 4.5-5.90 10^6/uL Hemoglobin 9.7 L 13.5-17.5 g/dL Hematocrit 30.6 L 41.0-53.0 % Mean Corpuscular Volume 82.2 80.0-100.0 fL Mean Corpuscular Hemoglobin 26.0 L 28.0-32.0 pg Mean Corpuscular Hemoglobin Concent 31.7 L 32.0-36.0 g/dL Red Cell Distribution Width 16.1 H 11.8-14.3 % Platelet Count 155 140-450 10^3/uL Mean Platelet Volume 8.5 6.9-10.8 fL Neutrophils (%) (Auto) 90.4 H 37.0-80.0 % Lymphocytes (%) (Auto) 7.7 L 10.0-50.0 % Monocytes (%) (Auto) 1.9 0.0-12.0 % Eosinophils (%) (Auto) 0.0 0.0-7.0 % Basophils (%) (Auto) 0.0 0.0-2.0 % Neutrophils # (Auto) 18.6 H 1.6-8.6 10 ^3/uL Lymphocytes # (Auto) 1.6 0.4-5.4 10 ^3/uL Monocytes # (Auto) 0.4 0-1.3 10 ^3/uL Eosinophils # (Auto) 0 0-0.8 10 ^3/uL Basophils # (Auto) 0 0-0.2 10 ^3/uL Nucleated Red Blood Cells 0.1 % Prothrombin Time 15.5 H 9.3-11.8 sec Prothrombin Time INR 1.51 H 0.9-1.15 Activated Partial Thromboplast Time 32.7 24.5-34.5 SEC Hemoglobin A1c 6.1 H <5.7 % A1C Magnesium Level 1.9 1.6-2.6 mg/dL Total Bilirubin 0.5 0.2-1.0 mg/dL Aspartate Amino Transferase (AST) < 8 L 13-40 U/L Alanine Aminotransferase (ALT) < 9 7-40 U/L Alkaline Phosphatase 86 46-116 U/L Total Protein 5.6 L 5.7-8.2 g/dL Albumin 2.3 L 3.2-4.8 g/dL Triglycerides Level 112 < 150 mg/dL Cholesterol Level 72 < 200 mg/dL LDL Cholesterol 26 < 100 mg/dL HDL Cholesterol 23 L 40-59 mg/dL Lipase 20 12-53 U/L Thyroid Stimulating Hormone (TSH) 1.60 0.55-4.78 uIU/mL Ammonia 34 H 11-32 umol/L Troponin I High Sensitivity 27 </=54 ng/L Differential Total Cells Counted 100.0 100 Neutrophils % (Manual) 82 H 37.0-80.0 Band Neutrophils % (Manual) 7 Lymphocytes % (Manual) 7 L 10.0-50.0 Monocytes % (Manual) 4 0-12 Eosinophils % (Manual) 0 0-7 Basophils % (Manual) 0 0.0-2.0 Metamyelocytes % (manual) 0 Myelocytes % (Manual) 0 Promyelocytes % (Manual) 0 Blast Cells % (Manual) 0 Reactive Lymphocytes 0 Platelet Estimate Adequate Lactic Acid Level 2.8 *H 0.4-2.0 mmol/L B-Type Natriuretic Peptide 262.73 0-100 pg/mL Test 03/11/24 05:14 03/11/24 04:21 03/11/24 04:00 03/11/24 03:24 Range/Units Influenza Type A Antigen Negative Negative Influenza Type B Antigen Negative Negative SARS-CoV-2 Antigen (Rapid) Negative NEGATIVE Blood Gas Spontaneous Tidal Volume 540 Urine Color Yellow Yellow Urine Clarity Turbid H Clear Urine pH 6.0 5.0-9.0 Urine Specific [place] 1.016 1.001-1.035 Urine Protein 1+ H Negative Urine Ketones Negative Negative Urine Blood 1+ H Negative /uL Urine Nitrite Negative Negative Urine Bilirubin Negative Negative Urine Urobilinogen 2 H Negative mg/dL Urine Leukocyte Esterase 3+ Negative /uL Urine RBC 24 0 - 3 /hpf Urine WBC 280 0 - 3 /hpf Urine Squamous Epithelial Cells Few <5 /hpf Urine Bacteria Many H None Seen /hpf Urine Mucus Few None Seen Urine Glucose Normal Normal mg/dL Urine Opiates Screen Neg NEGATIVE Urine Fentanyl Screen Neg NEGATIVE Urine Barbiturates Screen Neg NEGATIVE Urine Phencyclidine Screen Neg NEGATIVE Urine Amphetamines Screen Neg NEGATIVE Urine Benzodiazepines Screen Neg NEGATIVE Urine Cocaine Screen Neg NEGATIVE Urine Cannabinoids Screen Neg NEGATIVE Plasma/Serum Blood Alcohol < 3.0 <10 mg/dL Microbiology Date/Time Source Procedure Growth Status 03/11/24 14:56 Sacrum Gram Stain - Final Resulted 03/11/24 14:56 Sacrum Wound Culture - Preliminary Resulted 03/11/24 04:00 Urine - [place] Urine Culture - Preliminary Resulted 03/11/24 03:24 Blood Blood Culture - Preliminary NO GROWTH AFTER 24 HOURS OF INCUBATION. 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 CXR image and report reviewed. Devices in place. Multifocal pneumonia. No pneumothorax. No pleural effusion. ABG reviewed, compensated. On AC mode; RR 18/VT 500/PEEP 5/FiO2 35%. Titrate FIO2 to keep O2 saturation above 90%. VAP bundle. Daily ABG and CXR while intubated Sedate for ventilator synchrony - on Propofol, Fentanyl. On pressors for hemodynamic support Levophed 14 mcg/min Titrate to keep mean arterial pressure greater than 65 mmHg. Obtain consent for bronchoscopy and arterial line placement. Broad-spectrum antibiotics, Zosyn and vancomycin F/u cultures - Blood cultures show no growth x24 hours Tube feeds for nutritional support Lasix 20 mg/hr d/t low UOP Monitor renal function Monitor electrolytes. Supplement as necessary. Monitor ins and outs. K, mag supplementation. Wound care Accu-Cheks, ISS. Lactic acid trending down. 500 mL bolus of IV fluids with LR at 100 ml/hr. GI prophylaxis with Protonix IV DVT prophylaxis with Lovenox Prognosis: Poor given patient's multiple co-morbidities. Condition: Critical Rest of plan per hospitalist and other consultants. A total of 36 minutes of critical care time was spent reviewing the patient record, examining the patient, making a diagnostic and therapeutic plan, discussing this plan with the medical personnel, following up on diagnostic studies and following the patient for clinical stability excluding any and all procedures. At least 50% of this time was spent in direct, [id number] contact. Thank you Dr. Graham Espitia MD, for allowing me to participate in this patient's care. Further recommendations will depend on the patient's clinical course. Please do not hesitate to contact me if you have any questions or concerns. This medical document was created using an electronic medical record system with [employer] dictation system. Although these documentations are being carefully reviewed, there may still be some phonetic and typographical changes. The errors are purely typographical, due to imperfection on the software program, and do not reflect any compromise in the patient's medical care. Plan discussed with: Other (Carrie Ochoa/MD Espitia) GERRY FERRO MD Mar 12, 2024 20:29
[2024-03-13] VITALS (106 sets, daily range): BP systolic 85–177; BP diastolic 42–96; PULSE 70–94; RESP 15–22; TEMP 96.4–97.7; O2SAT 97–100
[2024-03-13 03:24] LABS: Basophils # (auto) 0 10 ^3/uL (0-0.2); Eosinophils # (auto) 0 10 ^3/uL (0-0.8); Hemoglobin 7.9 g/dL (13.5-17.5); Nucleated Red Blood Cells % 0.2 %; White Blood Cell 24.4 10^3/uL (4.4-10.8)
[2024-03-13 03:27] LABS: Hematocrit 25.5 % (41.0-53.0); Lymphocytes % (auto) 4.3 % (10.0-50.0); Mean Corpuscular Hemoglobin 25.7 pg (28.0-32.0); Mean Corpuscular Volume 82.9 fL (80.0-100.0); Monocytes # (auto) 0.4 10 ^3/uL (0-1.3); Monocytes % (auto) 1.5 % (0.0-12.0); Neutrophils % (auto) 94.2 % (37.0-80.0); Platelet Count (auto) 131 10^3/uL (140-450); Red Blood Cells 3.08 10^6/uL (4.5-5.90); Red Cell Distribution Width 16.7 % (11.8-14.3)
[2024-03-13 03:47] LABS: Alkaline Phosphatase 75 U/L (46-116); Anion Gap 11 (5-15); BUN/Creatinine Ratio 37.4 (10.0-20.0); Carbon Dioxide 23 mmol/L (20-31); Magnesium 1.9 mg/dL (1.6-2.6); Potassium 3.8 mmol/L (3.5-5.1)
[2024-03-13 03:49] LABS: Bilirubin, Total 0.4 mg/dL (0.2-1.0)
[2024-03-13 04:00] LABS: Alanine Aminotransferase < 9 U/L (7-40); Albumin 2.1 g/dL (3.2-4.8); Aspartate Aminotransferase < 8 U/L (13-40); Blood Urea Nitrogen 37 mg/dL (9-23); Calcium 8.4 mg/dL (8.7-10.4); Chloride 112 mmol/L (98-107); Glucose 143 mg/dL (74-106); Sodium 146 mmol/L (136-145)
--- NOTE | 2024-03-13 04:07 | DVH ---
CHEST RADIOGRAPH Indication: vent Technique: Single frontal chest radiograph Comparison: XY CHEST PORTABLE on DOS: 03/12/24, XY CHEST XRAY 1 VIEW on DOS: 03/11/24, XY CHEST XRAY 1 VIEW on DOS: 03/11/24, XY CHEST XRAY 1 VIEW on DOS: 03/11/24, XY CHEST XRAY 1 VIEW on DOS: 03/11/24, XY CHEST PORTABLE on DOS: 03/12/24 FINDINGS: Frontal chest radiograph demonstrates no acute osseous or superficial soft tissue abnormalities. Endo tracheal tube terminates 1 cm from the matt. Enteric tube is overlying the plane of the stomach. Le ft sided IJ catheter terminates near the superior cavoatrial junction. The trachea is midline. The ca rdiac silhouette is within normal limits. Widened mediastinum, unchanged. Multifocal pneumonia, uncha nged. No pneumothorax or pleural effusions. IMPRESSION: No interval change.
[2024-03-13 06:56] LABS: Base Excess -2.6 mmol/L (-2.0-3.0)
[2024-03-13] MEDS: BUMETANIDE 2.5mg/10ml (0.25 mg/ml) INJ IV ONE ×2 (11:30→19:13)
--- NOTE | 2024-03-13 14:14 | DVHPN2 ---
Subjective Intubated and sedated FiO2 30% PEEP is 5 Very minimal urine output Changes from previous H/P or p: Changes Objective Vitals Vital Signs Date Time Temp Pulse Resp B/P (MAP) Pulse Ox O2 Delivery O2 Flow Rate FiO2 03/13/24 13:40 85 18 103/67 (79) 100 30 03/13/24 12:15 97.0 206.6 03/13/24 12:00 Mechanical Ventilator+ Intake/Output Intake and Output 03/13/24 07:00 Intake Total 4231.975 ml Output Total 105 ml Balance 4126.975 ml Intake Oral 0 ml IV Total 3478.975 ml Tube Feeding 253 ml Other 500 ml Output Urine Total 105 ml General Appearance: Other (Intubated and sedated) Lungs: Other (Bilateral rhonchi) Cardiovascular: Regular rate, Normal S1, Normal S2 Abdomen: Normal bowel sounds, Soft, No tenderness Extremities: No edema Medications Current Medications Medications Dose Ordered Sig/Hunter Route Start Time Stop Time Status Last Admin Dose Admin Norepinephrine Bitartrate 250 ml @ 3.75 mls/hr Q24H IV 03/11/24 03:45 03/13/24 02:10 18.75 MLS/HR Pantoprazole Sodium 40 mg DAILY IV 03/12/24 10:00 03/13/24 11:13 40 MG Morphine Sulfate 2 mg Q4HP PRN IV 03/11/24 16:30 Ipratropium [place] 0.5 mg Q4HR NEB 03/11/24 18:00 03/13/24 10:19 0.5 MG Enoxaparin Sodium 30 mg DAILY SC 03/12/24 10:00 03/13/24 11:14 30 MG Piperacillin Sod/ Tazobactam Sod 100 ml @ 25 mls/hr Q8HR IV 03/11/24 22:00 03/13/24 13:02 25 MLS/HR Vancomycin HCl 0 ml @ 0 mls/hr UD IV 03/11/24 16:30 Enteral Nutritional Formula 1,000 ml 40ML/HR GT 03/11/24 16:30 03/13/24 04:43 1,000 ML Fentanyl Citrate 250 ml @ 2.5 mls/hr Q24H IV 03/11/24 16:45 03/13/24 06:28 7.5 MLS/HR Propofol 100 ml @ 1.635 mls/ hr Q24H IV 03/12/24 05:30 03/13/24 02:35 1.635 MLS/HR Diagnostic Test (Pha) 1 strip ACHS 03/12/24 11:30 03/13/24 11:30 1 STRIP Insulin Human Regular ACHS SC 03/12/24 11:30 03/13/24 12:19 2 UNITS Dextrose 50 ml UD PRN IV 03/12/24 08:30 Lactated Ringer's 1,000 ml @ 100 mls/hr Q10H IV 03/12/24 10:30 03/13/24 12:20 100 MLS/HR Vasopressin 20 units/Sodium Chloride 100 ml @ 9 mls/hr Q11H7M IV 03/12/24 14:45 03/13/24 11:04 9 MLS/HR Laboratory Results Laboratory Tests 03/13/24 02:55 Chemistry Test 03/12/24 15:37 03/13/24 02:55 Calcium Level 8.6 mg/dL (8.7-10.4) L 8.4 mg/dL (8.7-10.4) L Albumin 2.1 g/dL (3.2-4.8) L Magnesium Level 1.9 mg/dL (1.6-2.6) Total Protein 5.0 g/dL (5.7-8.2) L LFT Test 03/13/24 02:55 Alanine Aminotransferase (ALT) < 9 U/L (7-40) Alkaline Phosphatase 75 U/L (46-116) Aspartate Amino Transferase (AST) < 8 U/L (13-40) L Total Bilirubin 0.4 mg/dL (0.2-1.0) Urinalysis Test 03/11/24 04:00 03/12/24 15:25 Urine Color Yellow (Yellow) Urine Clarity Turbid (Clear) H Urine pH 6.0 (5.0-9.0) Urine Specific [place] 1.016 (1.001-1.035) Urine Protein 1+ (Negative) H Urine Ketones Negative (Negative) Urine Blood 1+ /uL (Negative) H Urine Nitrite Negative (Negative) Urine Bilirubin Negative (Negative) Urine Urobilinogen 2 mg/dL (Negative) H Urine Leukocyte Esterase 3+ /uL (Negative) Urine RBC 24 /hpf (0 - 3) Urine WBC 280 /hpf (0 - 3) Urine Squamous Epithelial Cells Few /hpf (<5) Urine Bacteria Many /hpf (None Seen) H Urine Mucus Few (None Seen) Urine Glucose Normal mg/dL (Normal) Urine Creatinine 27.92 mg/dL (30.0-125.0) L Urine Sodium 82 mmol/L (40-220) Blood Gas Results Test 03/13/24 06:39 Arterial Blood pH 7.418 (7.350-7.450) FiO2 % 30.0 Microbiology Microbiology Date/Time Source Procedure Growth Status 03/12/24 18:05 Nose MRSA Screen - Final Complete 03/11/24 04:00 Urine - [place] Urine Culture - Preliminary Resulted 03/11/24 03:24 Blood Blood Culture - Preliminary NO GROWTH AFTER 48 HOURS OF INCUBATION. Resulted 03/11/24 03:20 Sputum Endotracheal Wash Gram Stain - Final Resulted 03/11/24 03:20 Sputum Endotracheal Wash Respiratory Culture - Preliminary Resulted Assessment/Plan Assessment/Plan Acute hypoxic respiratory failure Sepsis with septic shock UTI Multi lobar pneumonia Hypernatremia Hypoxemia Bed ridden x 2 years Large AAA 5.9 cm Constipation Diffuse mixed lytic osseous lesions suspicious for metastatic disease Bacteremia Gram-positive cocci in clusters Plan Admit to ICU Mechanical ventilation Broad-spectrum antibiotics Zosyn and vancomycin Sedation as needed: Discontinue Versed and start fentanyl drip, add propofol if needed DVT prophylaxis with Lovenox GI prophylaxis with Protonix IV Echo Get urine culture and blood culture and sputum culture Norepinephrine p.r.n. for blood pressure support Pulmonary consult Start tube feeding Discussed with his son over the phone Full code 03/12/2024: Hypokalemia and hypomagnesemia: Replace potassium and magnesium Sedation: Fentanyl and propofol as needed, titrate to RASS -3 Decreased urine output: Give bolus 500 mL, start feeding Broad-spectrum antibiotics: Vancomycin and Zosyn DVT prophylaxis: Lovenox GI prophylaxis: Protonix Full code Discussed with the son over the phone yesterday, full code for now 03/13/2024: Septic shock: Continue vasopressors as needed Possible acute tubular necrosis: Diuresis with Lasix and Bumex per Nephrology, add albumin IV Sepsis due to pneumonia and UTI: Continue Zosyn IV Sedation as needed with fentanyl and propofol Pulmonary consultation is on DVT prophylaxis with Lovenox GI prophylaxis with Protonix Full code Discussed with the his son over the phone again now, he said to try everything, full code, questions answered Plan discussed with: Other My Orders Orders - ALBERTO FREEMAN MD Procedure Category Date Status Time *Dr. [facility] CONS 03/12/24 Transmitted -[place] 14:35 Sodium Chl 0.9% PHA 03/12/24 In Process (So... W/Vasopressin 14:45 Cleanse Wound With SMITHA 03/12/24 In Process Wound Clean 13:53 Cover Wound With Foam SMITHA 03/12/24 In Process Dressing 13:53 Vancomycin Per SMITHA 03/12/24 In Process Pharmacy Protoc 17:48 Basic Metabolic Panel LAB 03/14/24 Verified 04:00 Vancomycin,Random LAB 03/14/24 Verified 04:00 Continuous Monitoring SMITHA 03/13/24 In Process Of Cvp,P 13:43 Albumin Ivpb PHA 03/13/24 Transmitted 14:15 Date of Service: Mar 13, 2024 Billing Provider: ALBERTO FREEMAN MD Common Visit Codes: NOT BILLABLE ALBERTO FREEMAN MD Mar 13, 2024 14:14
[2024-03-13] MEDS: ALBUMIN 25% 100 ML IV SCH (15:22)
--- NOTE | 2024-03-13 15:51 | DVHPN2 ---
Progress Note - Dictate Date Seen: Mar 13, 2024 Medical Necessity Reason Pt with a Central, PICC or Fol: Yes The following are medically ne: Central Line, Jimenez Catheter Subjective s/p bronch yesterday bumex today high dose but UOP has been minimal vital signs Vital Sign Date Time Temp Pulse Resp B/P (MAP) Pulse Ox O2 Delivery O2 Flow Rate FiO2 03/13/24 15:35 120/72 03/13/24 14:45 97.0 90 18 100 206.6 03/13/24 14:00 Mechanical Ventilator+ 30 30 Total Intake and Output 03/12/24 03/12/24 03/13/24 15:00 23:00 07:00 Intake Total 1047.565 ml 1840.080 ml 1344.330 ml Output Total 50 ml 55 ml Balance 1047.565 ml 1790.080 ml 1289.330 ml medications Current Medications Medications Dose Ordered Sig/Hunter Route Start Time Stop Time Status Last Admin Dose Admin Norepinephrine Bitartrate 250 ml @ 3.75 mls/hr Q24H IV 03/11/24 03:45 03/13/24 02:10 18.75 MLS/HR Pantoprazole Sodium 40 mg DAILY IV 03/12/24 10:00 03/13/24 11:13 40 MG Morphine Sulfate 2 mg Q4HP PRN IV 03/11/24 16:30 Ipratropium [place] 0.5 mg Q4HR NEB 03/11/24 18:00 03/13/24 10:19 0.5 MG Enoxaparin Sodium 30 mg DAILY SC 03/12/24 10:00 03/13/24 11:14 30 MG Piperacillin Sod/ Tazobactam Sod 100 ml @ 25 mls/hr Q8HR IV 03/11/24 22:00 03/13/24 13:02 25 MLS/HR Vancomycin HCl 0 ml @ 0 mls/hr UD IV 03/11/24 16:30 Enteral Nutritional Formula 1,000 ml 40ML/HR GT 03/11/24 16:30 03/13/24 04:43 1,000 ML Fentanyl Citrate 250 ml @ 2.5 mls/hr Q24H IV 03/11/24 16:45 03/13/24 06:28 7.5 MLS/HR Propofol 100 ml @ 1.635 mls/ hr Q24H IV 03/12/24 05:30 03/13/24 02:35 1.635 MLS/HR Diagnostic Test (Pha) 1 strip ACHS 03/12/24 11:30 03/13/24 11:30 1 STRIP Insulin Human Regular ACHS SC 03/12/24 11:30 03/13/24 12:19 2 UNITS Dextrose 50 ml UD PRN IV 03/12/24 08:30 Lactated Ringer's 1,000 ml @ 100 mls/hr Q10H IV 03/12/24 10:30 03/13/24 12:20 100 MLS/HR Vasopressin 20 units/Sodium Chloride 100 ml @ 9 mls/hr Q11H7M IV 03/12/24 14:45 03/13/24 11:04 9 MLS/HR Albumin Human 100 ml @ 100 mls/hr Q8H IV 03/13/24 14:15 03/14/24 07:14 03/13/24 15:22 100 MLS/HR objective Elderly white male Intubated Sedated On two pressors Abdomen is soft Appears cachectic with decreased muscle tone No edema Tachycardic but regular rhythm Jimenez catheter has minimal by still yellow urine Decubitus sacral ulcer laboratory and microbiology Laboratory Tests 03/13/24 02:55 Test 03/13/24 02:55 Range/Units Serum Glucose 143 H 74-106 mg/dL Assessment/Plan Acute kidney injury hemodynamically mediated concerning for ATN . FENA 2% + vancotoxicity Significant hypotension noted Septic shock due to multiple sources including decubitus ulcer as well as urinary tract infection Protein calorie malnutrition Pneumonia multi lobar s/p bronchoscopy shows mucous plug stress dose diuretic Pressors to maintain a mean arterial pressure greater than 65 Currently on antibiotics for for infections recommend close monitoring of troughs including vancomycin as Zosyn and vancomycin combination has higher risk for nephrotoxicity Avoid contrast studies at this time Strict Is&Os Prognosis is poor due to decreased functional status although uop is poorly responsive presently in emergent indication for dialysis as long as volume and electrolytes are medically manageable Critical care time spent 35 minutes Dietary Evaluation Review Comments: 1) Consider Glucerna 1.2 @ 45ml/hr x 24hr goal rate as tolerated 2) If pt remains NPO initiate TPN within 2-3 days of NPO status as pt is underweight. 3) Advance pt diet when medically feasible to a CCHO 60g diet modified per [employer] recommendations. 4) Consider [place] 1 pkt BIDWM for wound 5) Continue current plan of care Expected Outcomes/Goals: 1) Pt to receive nutrition support within 2-3 days of NPO status. 2) Pt diet to advance 3) F/U in 2-3 days Plan discussed with: ESTEFANÍA Flower MD Mar 13, 2024 15:51
[2024-03-13] MEDS: metOLazone 5 MG TAB PO ONE (19:14)
[2024-03-13] MEDS: LACTULOSE 20Gm/30ML SOLN PO SCH (22:24)
--- NOTE | 2024-03-13 23:15 | DVHPN2 ---
Progress Note - Dictate Date Seen: Mar 13, 2024 Medical Necessity Reason Pt with a Central, PICC or Fol: Yes The following are medically ne: Central Line, Sharpe Catheter Reason for sharpe catheter: Strict I&O Subjective Patient seen and examined at bedside. Sedated, intubated on mechanical ventilator. Overnight events reviewed. vital signs Vital Sign Date Time Temp Pulse Resp B/P (MAP) Pulse Ox O2 Delivery O2 Flow Rate FiO2 03/13/24 22:00 18 100 Mechanical Ventilator+ 30 30 03/13/24 22:00 79 03/13/24 21:50 121/56 (77) 03/13/24 21:30 97.5 207.5 Total Intake and Output 03/12/24 03/12/24 03/13/24 15:00 23:00 07:00 Intake Total 1047.565 ml 1840.080 ml 1344.330 ml Output Total 50 ml 55 ml Balance 1047.565 ml 1790.080 ml 1289.330 ml medications Current Medications Medications Dose Ordered Sig/Hunter Route Start Time Stop Time Status Last Admin Dose Admin Norepinephrine Bitartrate 250 ml @ 3.75 mls/hr Q24H IV 03/11/24 03:45 03/13/24 19:15 7.5 MLS/HR Pantoprazole Sodium 40 mg DAILY IV 03/12/24 10:00 03/13/24 11:13 40 MG Morphine Sulfate 2 mg Q4HP PRN IV 03/11/24 16:30 Ipratropium Mode 0.5 mg Q4HR NEB 03/11/24 18:00 03/13/24 21:50 0.5 MG Enoxaparin Sodium 30 mg DAILY SC 03/12/24 10:00 03/13/24 11:14 30 MG Piperacillin Sod/ Tazobactam Sod 100 ml @ 25 mls/hr Q8HR IV 03/11/24 22:00 03/13/24 22:11 25 MLS/HR Vancomycin HCl 0 ml @ 0 mls/hr UD IV 03/11/24 16:30 Enteral Nutritional Formula 1,000 ml 40ML/HR GT 03/11/24 16:30 03/13/24 04:43 1,000 ML Fentanyl Citrate 250 ml @ 2.5 mls/hr Q24H IV 03/11/24 16:45 03/13/24 06:28 7.5 MLS/HR Propofol 100 ml @ 1.635 mls/ hr Q24H IV 03/12/24 05:30 03/13/24 02:35 1.635 MLS/HR Diagnostic Test (Pha) 1 strip ACHS 03/12/24 11:30 03/13/24 22:16 1 STRIP Insulin Human Regular ACHS SC 03/12/24 11:30 03/13/24 22:37 2 UNITS Dextrose 50 ml UD PRN IV 03/12/24 08:30 Lactated Ringer's 1,000 ml @ 100 mls/hr Q10H IV 03/12/24 10:30 03/13/24 19:14 100 MLS/HR Vasopressin 20 units/Sodium Chloride 100 ml @ 9 mls/hr Q11H7M IV 03/12/24 14:45 03/13/24 20:27 9 MLS/HR Albumin Human 100 ml @ 100 mls/hr Q8H IV 03/13/24 14:15 03/14/24 07:14 03/13/24 22:12 100 MLS/HR Lactulose 30 ml BID PO 03/13/24 22:00 03/13/24 22:24 30 ML objective Gen.: Patient lying in bed in medical ICU. Sedated, intubated on mechanical ventilator. Head: Normocephalic, atraumatic. Eyes: PERRLA. Ears: Normal external anatomy. Throat: Endotracheal tube and orogastric tube in place. Neck: Supple, trachea midline. Chest: Transmitted breath sounds bilaterally. Decreased air entry bilaterally. No wheezing. Bibasilar crackles. Cardiovascular: Positive S1, positive S2. Regular rate and rhythm. Abdomen: Positive bowel sounds in all 4 quadrants. Soft, nontender, nondistended. : Sharpe in place. Normal external genitalia. Rectal: Deferred. Skin: Warm, dry. Intact. Extremities: 2+ radial pulses bilaterally. No lower extremity edema. Neuro: Sedated. 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 Titrate to keep mean arterial pressure greater than 65 mmHg. IV fluid hydration at 100 ml/hr. Albumin Nephrology recs appreciated. Labs and imaging reviewed. Rest of plan as noted below. Plan: s/p intubation on mechanical ventilator. CXR image and report reviewed. Devices in place. Multifocal pneumonia. No pneumothorax. No pleural effusion. ABG reviewed, compensated. On AC mode; RR 18/VT 500/PEEP 5/FiO2 30%. Titrate FIO2 to keep O2 saturation above 90%. VAP bundle. Daily ABG and CXR while intubated Sedate for ventilator synchrony - on Propofol, Fentanyl. On pressors for hemodynamic support Titrate to keep mean arterial pressure greater than 65 mmHg. Obtain consent for bronchoscopy and arterial line placement. Broad-spectrum antibiotics, Zosyn and vancomycin F/u cultures - Blood cultures show no growth x24 hours Tube feeds for nutritional support Diurese w/ Bumex Monitor renal function Monitor electrolytes. Supplement as necessary. Monitor ins and outs. Wound care Accu-Cheks, ISS. Lactic acid trending down. 500 mL bolus of IV fluids with LR at 100 ml/hr. GI prophylaxis with Protonix IV DVT prophylaxis with Lovenox Prognosis: Poor given patient's multiple co-morbidities. Condition: Critical Rest of plan per hospitalist and other consultants. A total of 35 minutes of critical care time was spent reviewing the patient record, examining the patient, making a diagnostic and therapeutic plan, discussing this plan with the medical personnel, following up on diagnostic studies and following the patient for clinical stability excluding any and all procedures. At least 50% of this time was spent in direct, [id number] contact. Thank you Dr. Graham Espitia MD, for allowing me to participate in this patient's care. Further recommendations will depend on the patient's clinical course. Please do not hesitate to contact me if you have any questions or concerns. This medical document was created using an electronic medical record system with [employer] system. Although these documentations are being carefully reviewed, there may still be some phonetic and typographical changes. The errors are purely typographical, due to imperfection on the software program, and do not reflect any compromise in the patient's medical care. Dietary Evaluation Review Comments: 1) Consider Glucerna 1.2 @ 45ml/hr x 24hr goal rate as tolerated 2) If pt remains NPO initiate TPN within 2-3 days of NPO status as pt is underweight. 3) Advance pt diet when medically feasible to a CCHO 60g diet modified per INSTRUCTIONAL SUPPORT SPECIALIST recommendations. 4) Consider [place]ISE 1 pkt BIDWM for wound 5) Continue current plan of care Expected Outcomes/Goals: 1) Pt to receive nutrition support within 2-3 days of NPO status. 2) Pt diet to advance 3) F/U in 2-3 days Plan discussed with: Other (IRENE Chen) Critical Care Time(min): 35 GERRY FERRO MD Mar 13, 2024 23:15
[2024-03-14] VITALS (117 sets, daily range): BP systolic 78–151; BP diastolic 14–75; PULSE 60–98; RESP 15–22; TEMP 96.6–98.1; O2SAT 97–100
[2024-03-14 03:50] LABS: Basophils # (auto) 0 10 ^3/uL (0-0.2); Eosinophils # (auto) 0 10 ^3/uL (0-0.8); Hematocrit 20.6 % (41.0-53.0); Monocytes # (auto) 0.3 10 ^3/uL (0-1.3); Nucleated Red Blood Cells % 0.1 %
[2024-03-14 03:54] LABS: Lymphocytes # (auto) 1.4 10 ^3/uL (0.4-5.4); Lymphocytes % (auto) 6.5 % (10.0-50.0); Mean Corpuscular Hemoglobin 25.9 pg (28.0-32.0); Mean Corpuscular Hgb Conc. 31.4 g/dL (32.0-36.0); Mean Corpuscular Volume 82.4 fL (80.0-100.0); Monocytes % (auto) 1.6 % (0.0-12.0); Neutrophils # (auto) 19.4 10 ^3/uL (1.6-8.6); Neutrophils % (auto) 91.9 % (37.0-80.0); Platelet Count (auto) 121 10^3/uL (140-450); Red Cell Distribution Width 16.3 % (11.8-14.3); White Blood Cell 21.1 10^3/uL (4.4-10.8)
[2024-03-14 04:04] LABS: INR 1.35 (0.9-1.15); Partial Thromboplastin Time 39.6 SEC (24.5-34.5)
[2024-03-14 04:07] LABS: Alkaline Phosphatase 82 U/L (46-116); Anion Gap 12 (5-15); Carbon Dioxide 23 mmol/L (20-31); Potassium 3.6 mmol/L (3.5-5.1); Sodium 145 mmol/L (136-145)
[2024-03-14 04:08] LABS: BUN/Creatinine Ratio 31.1 (10.0-20.0); Magnesium 1.9 mg/dL (1.6-2.6)
[2024-03-14 04:10] LABS: Bilirubin, Total 0.4 mg/dL (0.2-1.0)
[2024-03-14 04:21] LABS: Alanine Aminotransferase < 9 U/L (7-40); Albumin 2.6 g/dL (3.2-4.8); Aspartate Aminotransferase 9 U/L (13-40); Blood Urea Nitrogen 41 mg/dL (9-23); Calcium 8.5 mg/dL (8.7-10.4); Chloride 110 mmol/L (98-107); Glucose 132 mg/dL (74-106); Total Protein 5.1 g/dL (5.7-8.2)
[2024-03-14 04:46] LABS: Hemoglobin 6.5 g/dL (13.5-17.5)
--- NOTE | 2024-03-14 05:31 | DVH ---
CHEST RADIOGRAPH Indication: vent Technique: Single frontal view of the chest was obtained COMPARISON: XY CHEST PORTABLE on DOS: 03/13/24, XY CHEST PORTABLE on DOS: 03/12/24, XY CHEST XRAY 1 VIE W on DOS: 03/11/24 FINDINGS: Lines and Tubes: Endotracheal tube, enteric catheter and left central venous catheter in satisfactory position. Lungs: Multifocal airspace disease. Pleura: No effusion. No pneumothorax. Cardiomediastinal contours: Unremarkable Bones: Unremarkable IMPRESSION: Lines and tubes in satisfactory position. No significant interval change.
[2024-03-14 06:08] LABS: Platelet Estimate Decreased
[2024-03-14 06:20] LABS: Stomatocytes Few
[2024-03-14 07:53] LABS: Base Excess -2.3 mmol/L (-2.0-3.0)
[2024-03-14] MEDS: NOREPINEPHRINE 8 MG/250ML KIT 250 ML IV SCH (12:38)
--- NOTE | 2024-03-14 13:47 | DVHNC2 ---
Procedure - Radial arterial line procedure note Indication: Hemodynamic monitoring, frequent blood ABG draws. Slip Caster: Dr. Tay Date: 03/13/2024 Time out: 1701 pm. Consent: Consent was obtained from patient's healthcare proxy prior to procedure. Indications, risks, and benefits were explained at length. Patient medications and allergies reviewed. The risks and benefits of the procedure and the sedation options and risk were discussed with the patient's healthcare proxy. All questions were answered and informed consent was obtained. Patient identification and proposed procedure were verified prior to the procedure by the physician, and a nurse in the patient's room. The heart rate, respiratory rate, oxygen saturations, blood pressure, adequacy of pulmonary ventilation, and response to care were monitored throughout the procedure. The physical status of the patient was reassessed after the procedure. Procedure summary: A time-out was performed. My hands were washed immediately prior to the procedure. I wore surgical cap, mask with protective eyewear, sterile gown and sterile gloves throughout the procedure. After an Will test was performed to ensure adequate perfusion, the RIGHT wrist was prepped using chlorhexidine scrub and draped in sterile fashion using sterile towels. The radial pulse was identified with the use of ultrasound. The wrist was positioned in the usual fashion. Anesthesia was achieved using 1% lidocaine. Using the radial arterial line kit, needle was inserted into the radial artery using ultrasound guidance. Arterial blood flow was seen to pulsate in the flash chamber. The internal guidewire was advanced easily into the radial artery. The catheter was then advanced over the wire and the needle and wire were withdrawn. The catheter was sutured into place with 1 sutures. A sterile Biopatch and Tegaderm was placed over the catheter at the insertion site. The patient tolerated the procedure without any hemodynamic compromise. At the time of procedure completion, the catheter was connected to the chlorobutadiene scrubber operator and calibrated. Appropriate waveform and blood pressure tracing was observed. Estimated blood loss is less than 5 mL. CPT: 44433 Arterial line insertion CPT: 03707 US add-on GERRY TAY MD Mar 14, 2024 13:47
--- NOTE | 2024-03-14 13:48 | DVHNC2 ---
Procedure - Procedure: Endotracheal Intubation INDICATION: Acute respiratory failure, accessory muscle usage, ET tube cuff leak Physician: Gerry Tay MD CONSENT: Emergent procedure. Implied. Time out time: 1715 Patient medications and allergies reviewed. Patient identification and proposed procedure were verified prior to the p rocedure by the physician, and a nurse in the patient's room. The heart rate, respiratory rate, oxygen saturations, blood pressure, adequacy of pulmonary ventilation, and response to care were monitored throughout the procedure. The physical status of the patient was reassessed after the procedure. PROCEDURE SUMMARY: A time out was performed. My hands were washed immediately prior to the procedure. I wore a surgical cap, mask with protective eyewear, gown and gloves throughout the procedure. The patient was placed on a cardiac catheterization technologist including continuous pulse oximetry. Cricoid pressure was maintained from time induction agent was given to time of cuff balloon inflation. Using a MAC 4 GlideoScope and a size 8.0 endotracheal tube with stylet, the patient was intubated on the 1 attempt. The stylet was removed and cuff balloon was inflated. Appropriate endotracheal tube position was confirmed by direct visualization of vocal cord passage, fogging of the tube, CO2 colorimetric indicator and symmetric breath sounds. The tube was secured at 23 cm at the lips. Post intubation chest x-ray is demonstrates the ETT between 2-6 cm above the matt. CPT Code: 54412 GERRY TAY MD Mar 14, 2024 13:48
--- NOTE | 2024-03-14 13:59 | DVHINCON2 ---
Date of service: Mar 14, [address] Espitia Reason for Consultation Altered mental status History of Present Illness Patient is a 83-year-old male who is brought to the hospital by his son due to altered mentation. He apparently does not get medical care or goes to the doctor, no medical problems, no medications at home. His mental status started to decline 2 weeks ago. Upon presentation, he was hypotensive and was started on Levophed drip. He was tachycardic, he was intubated and currently is sedated and still on Levophed for blood pressure support and Versed for sedation. The labs showed UTI Chest x-ray showed pneumonia Lactic acid high at 4.6 Culture History: 03/11, Sputum culture preliminary showed Normal Oropharyngeal Eugenia 03/11, Blood culture showed Staph hominis subsp homins. Repeat blood culture showed no growth after 72 hours of intubation. 1203, Urine culture showed Klebsiella pneumoniae >100,000 CFU/ML and Enterococcus faecalis >100,000 CFU/ML 03/11, Wound culture showed Escherichia coli and Enterococcus faecalis 03/12, MRSA screening: Negative Review of imaging shows: 03/14, Chest x-ray: Lines and tubes in satisfactory position. No significant interval change. 03/11, Head CT: No evidence of acute intracranial hemorrhage or mass effect. Mild ventriculomegaly. Mild hydrocephalus is not excluded. Past Medical History Unknown Past Surgical History None Family History: Patient reports no known family medical history. Social History Smoke: Quit Allergies: Coded Allergies: NO KNOWN ALLERGIES (Unverified , 03/11/24) Current Medications Current Medications Medications (Trade) Dose Ordered Sig/Hunter Route PRN Reason Start Time Stop Time Status Last Admin Albumin Human 100 ml @ 100 mls/hr Q8H IV 03/13/24 14:15 03/14/24 07:14 DC 03/14/24 07:52 Lactulose 30 ml BID PO 03/13/24 22:00 03/14/24 10:03 Norepinephrine Bitartrate 250 ml @ 1.875 mls/ hr Q24H IV 03/14/24 12:30 03/14/24 12:38 Review of Systems General: No Fever, chills, night sweats or weight loss HEENT: No Sinus pain, headache, vision changes or sore throat Respiratory: No Cough, dyspnea, sputum production Cardiovascular: No Chest pain, palpitations or leg edema Gastrointestinal: No Nausea, vomiting, diarrhea, abdominal pain Genitourinary: No Dysuria, urinary frequency, hematuria, pelvic pain Skin: No Rashes, ulcers, abscesses, redness or swelling Musculoskeletal: No Joint pain, muscle pain or swelling Neurologic: No Altered mental status, headaches or focal neurological deficits Psychiatric: No Anxiety, depression or confusion Vital Signs Vital Signs Date Time Temp Pulse Resp B/P (MAP) Pulse Ox O2 Delivery O2 Flow Rate FiO2 03/14/24 13:37 97.0 65 18 121/53 97.0 03/14/24 13:31 30 03/14/24 13:31 100 Mechanical Ventilator+ Physical Exam General: Patient lying in bed in medical ICU. Sedated, intubated on mechanical ventilator. Head: Normocephalic, atraumatic. Eyes: PERRLA. Ears: Normal external anatomy. Throat: Endotracheal tube and orogastric tube in place. Neck: Supple, trachea midline. Chest: Transmitted breath sounds bilaterally. Decreased air entry bilaterally. No wheezing. Bibasilar crackles. Cardiovascular: Positive S1, positive S2. Regular rate and rhythm. Abdomen: Positive bowel sounds in all 4 quadrants. Soft, nontender, nondistended. : Jimenez in place. Normal external genitalia. Rectal: Deferred. Skin: Warm, dry. Intact. Extremities: 2+ radial pulses bilaterally. No lower extremity edema. Neuro: Sedated. Labs/Diagnostic Data Labs Test 03/14/24 11:27 03/14/24 07:37 03/14/24 03:10 03/13/24 06:39 Range/Units POC Glucose 117 H 70-106 mg/dl Blood Gas Specimen Type Arterial Blood Gas Sample Site Arterial line Blood Gas Patient Temperature 37.0 Arterial Blood Date Drawn [id number] Arterial Blood pH 7.423 7.350-7.450 Arterial Blood Partial Pressure CO2 34.1 L 35.0-48.0 mmHg Arterial Blood Partial Pressure O2 104.1 83.0-108.0 mmHg Arterial Blood HCO3 21.8 21.0-28.0 mmol/L Arterial Blood Oxygen Saturation 97.6 94.0-98.0 % Arterial Blood Base Excess -2.3 L -2.0-3.0 mmol/L Arterial Blood Oxyhemoglobin 96.7 94.0-98.0 % Arterial Blood Carboxyhemoglobin 0.3 L 0.5-1.5 % Arterial Blood Methemoglobin 0.6 0.0-1.5 % Will Test N/a Blood Gas Total Hemoglobin 7.30 L 13.5-17.5 g/dL Blood Gas Set Respiration Rate 18.0 Blood Gas Modality Vent - ac FiO2 % 30.0 Blood Gas Tidal Volume 500.0 Blood Gas PEEP or CPAP 5.0 White Blood Count 21.1 H 4.4-10.8 10^3/uL Red Blood Count 2.50 L 4.5-5.90 10^6/uL Hemoglobin 6.5 #*L 13.5-17.5 g/dL Hematocrit 20.6 #L 41.0-53.0 % Mean Corpuscular Volume 82.4 80.0-100.0 fL Mean Corpuscular Hemoglobin 25.9 L 28.0-32.0 pg Mean Corpuscular Hemoglobin Concent 31.4 L 32.0-36.0 g/dL Red Cell Distribution Width 16.3 H 11.8-14.3 % Platelet Count 121 L 140-450 10^3/uL Mean Platelet Volume 8.3 6.9-10.8 fL Neutrophils (%) (Auto) 91.9 H 37.0-80.0 % Lymphocytes (%) (Auto) 6.5 L 10.0-50.0 % Monocytes (%) (Auto) 1.6 0.0-12.0 % Eosinophils (%) (Auto) 0.0 0.0-7.0 % Basophils (%) (Auto) 0.0 0.0-2.0 % Neutrophils # (Auto) 19.4 H 1.6-8.6 10 ^3/uL Lymphocytes # (Auto) 1.4 0.4-5.4 10 ^3/uL Monocytes # (Auto) 0.3 0-1.3 10 ^3/uL Eosinophils # (Auto) 0 0-0.8 10 ^3/uL Basophils # (Auto) 0 0-0.2 10 ^3/uL Nucleated Red Blood Cells 0.1 % Platelet Estimate Decreased Stomatocytes Few Prothrombin Time 14.0 H 9.3-11.8 sec Prothrombin Time INR 1.35 H 0.9-1.15 Activated Partial Thromboplast Time 39.6 H 24.5-34.5 SEC Sodium Level 145 136-145 mmol/L Potassium Level 3.6 3.5-5.1 mmol/L Chloride Level 110 H 98-107 mmol/L Carbon Dioxide Level 23 20-31 mmol/L Anion Gap 12 5-15 Blood Urea Nitrogen 41 H 9-23 mg/dL Creatinine 1.32 H 0.700-1.30 mg/dL Glomerular Filtration Rate Calc 54 >90 mL/min BUN/Creatinine Ratio 31.1 H 10.0-20.0 Serum Glucose 132 H 74-106 mg/dL Calcium Level 8.5 L 8.7-10.4 mg/dL Magnesium Level 1.9 1.6-2.6 mg/dL Total Bilirubin 0.4 0.2-1.0 mg/dL Aspartate Amino Transferase (AST) 9 L 13-40 U/L Alanine Aminotransferase (ALT) < 9 7-40 U/L Alkaline Phosphatase 82 46-116 U/L Total Protein 5.1 L 5.7-8.2 g/dL Albumin 2.6 L 3.2-4.8 g/dL Random Vancomycin Level 25.0 H 5-10 ug/mL Blood Gas Spontaneous Rate 18 Blood Gas Inspiratory Pressure 19.0 Bl Gas Inspiratory/Expiratory Ratio 1:3.3 Specimen Drawn By betsy rt Test 03/12/24 15:37 03/12/24 15:25 03/12/24 03:42 03/12/24 03:36 Range/Units Vancomycin Level Trough 32.8 *H 5-10 ug/mL Urine Creatinine 27.92 L 30.0-125.0 mg/dL Urine Sodium 82 40-220 mmol/L Hemoglobin A1c 6.1 H <5.7 % A1C Triglycerides Level 112 < 150 mg/dL Cholesterol Level 72 < 200 mg/dL LDL Cholesterol 26 < 100 mg/dL HDL Cholesterol 23 L 40-59 mg/dL Lipase 20 12-53 U/L Thyroid Stimulating Hormone (TSH) 1.60 0.55-4.78 uIU/mL Ammonia 34 H 11-32 umol/L Test 03/11/24 09:18 03/11/24 06:01 03/11/24 05:14 03/11/24 04:21 Range/Units Troponin I High Sensitivity 27 </=54 ng/L Differential Total Cells Counted 100.0 100 Neutrophils % (Manual) 82 H 37.0-80.0 Band Neutrophils % (Manual) 7 Lymphocytes % (Manual) 7 L 10.0-50.0 Monocytes % (Manual) 4 0-12 Eosinophils % (Manual) 0 0-7 Basophils % (Manual) 0 0.0-2.0 Metamyelocytes % (manual) 0 Myelocytes % (Manual) 0 Promyelocytes % (Manual) 0 Blast Cells % (Manual) 0 Reactive Lymphocytes 0 Lactic Acid Level 2.8 *H 0.4-2.0 mmol/L B-Type Natriuretic Peptide 262.73 0-100 pg/mL Influenza Type A Antigen Negative Negative Influenza Type B Antigen Negative Negative SARS-CoV-2 Antigen (Rapid) Negative NEGATIVE Blood Gas Spontaneous Tidal Volume 540 Test 03/11/24 04:00 03/11/24 03:24 Range/Units Urine Color Yellow Yellow Urine Clarity Turbid H Clear Urine pH 6.0 5.0-9.0 Urine Specific [place] 1.016 1.001-1.035 Urine Protein 1+ H Negative Urine Ketones Negative Negative Urine Blood 1+ H Negative /uL Urine Nitrite Negative Negative Urine Bilirubin Negative Negative Urine Urobilinogen 2 H Negative mg/dL Urine Leukocyte Esterase 3+ Negative /uL Urine RBC 24 0 - 3 /hpf Urine WBC 280 0 - 3 /hpf Urine Squamous Epithelial Cells Few <5 /hpf Urine Bacteria Many H None Seen /hpf Urine Mucus Few None Seen Urine Glucose Normal Normal mg/dL Urine Opiates Screen Neg NEGATIVE Urine Fentanyl Screen Neg NEGATIVE Urine Barbiturates Screen Neg NEGATIVE Urine Phencyclidine Screen Neg NEGATIVE Urine Amphetamines Screen Neg NEGATIVE Urine Benzodiazepines Screen Neg NEGATIVE Urine Cocaine Screen Neg NEGATIVE Urine Cannabinoids Screen Neg NEGATIVE Plasma/Serum Blood Alcohol < 3.0 <10 mg/dL Microbiology Date/Time Source Procedure Growth Status 03/12/24 18:05 Nose MRSA Screen - Final Complete 03/11/24 04:00 Urine - [place] Urine Culture - Final Klebsiella pneumoniae Enterococcus faecalis Complete 03/11/24 03:24 Blood Blood Culture - Preliminary NO GROWTH AFTER 72 HOURS OF INCUBATION. Resulted 03/11/24 03:20 Sputum Endotracheal Wash Gram Stain - Final Resulted 03/11/24 03:20 Sputum Endotracheal Wash Respiratory Culture - Preliminary Resulted Assessment Patient is a 83-year-old male presents to the hospital with: Septic shock leucoctysis Ecoli/ kleibseilla infection Staphylococcus hominis bacteremia concern for metastatic disease: ALOC acute hypoxic respiratory failure UTI [place] Recommendations blood culture is likely contamination, however repeat two sets currently on Vancomycin, trough is high, hold the dose and repeat levels tomorrow will switch IV zosyn to Unasyn : both GN are sensitive pressors are coming down concern for underlying malignancy. Patient has never seen doctor prognosis gaurded critical time greater than 45 minutes spent in management plan discussed with primary Plan discussed with: Other DELMY STERLING MD Mar 14, 2024 13:59
--- NOTE | 2024-03-14 16:09 | DVHPN2 ---
Progress Note - Dictate Date Seen: Mar 14, 2024 Medical Necessity Reason Pt with a Central, PICC or Fol: Yes The following are medically ne: Central Line, Sharpe Catheter Reason for sharpe catheter: Strict I&O Subjective Remains intubated vital signs Vital Sign Date Time Temp Pulse Resp B/P (MAP) Pulse Ox O2 Delivery O2 Flow Rate FiO2 03/14/24 15:31 96.8 72 18 113/47 96.8 03/14/24 14:21 100 30 03/14/24 13:31 Mechanical Ventilator+ Total Intake and Output 03/13/24 03/13/24 03/14/24 14:59 22:59 06:59 Intake Total 1046.330 ml 1627.580 ml 1422.080 ml Output Total 45 ml 525 ml Balance 1046.330 ml 1582.580 ml 897.080 ml medications Current Medications Medications Dose Ordered Sig/Hunter Route Start Time Stop Time Status Last Admin Dose Admin Pantoprazole Sodium 40 mg DAILY IV 03/12/24 10:00 03/14/24 10:03 40 MG Morphine Sulfate 2 mg Q4HP PRN IV 03/11/24 16:30 Ipratropium [place] 0.5 mg Q4HR NEB 03/11/24 18:00 03/14/24 14:21 0.5 MG Enoxaparin Sodium 30 mg DAILY SC 03/12/24 10:00 03/13/24 11:14 30 MG Vancomycin HCl 0 ml @ 0 mls/hr UD IV 03/11/24 16:30 Enteral Nutritional Formula 1,000 ml 40ML/HR GT 03/11/24 16:30 03/13/24 04:43 1,000 ML Fentanyl Citrate 250 ml @ 2.5 mls/hr Q24H IV 03/11/24 16:45 03/14/24 12:37 7.5 MLS/HR Propofol 100 ml @ 1.635 mls/ hr Q24H IV 03/12/24 05:30 03/14/24 12:22 1.635 MLS/HR Diagnostic Test (Pha) 1 strip ACHS 03/12/24 11:30 03/14/24 11:46 1 STRIP Insulin Human Regular ACHS SC 03/12/24 11:30 03/14/24 07:48 2 UNITS Dextrose 50 ml UD PRN IV 03/12/24 08:30 Lactated Ringer's 1,000 ml @ 100 mls/hr Q10H IV 03/12/24 10:30 03/14/24 06:24 100 MLS/HR Vasopressin 20 units/Sodium Chloride 100 ml @ 9 mls/hr Q11H7M IV 03/12/24 14:45 03/14/24 07:46 6 MLS/HR Lactulose 30 ml BID PO 03/13/24 22:00 03/14/24 10:03 30 ML Norepinephrine Bitartrate 250 ml @ 1.875 mls/ hr Q24H IV 03/14/24 12:30 03/14/24 12:38 5.625 MLS/HR Ampicillin Sodium/ Sulbactam Sodium 3 gm/Sodium Chloride 100 ml @ 100 mls/hr Q6H IV 03/14/24 14:00 objective Gen: nad, intubated and sedated heent: nc/at, lungs: Coarse breath sounds cvs: no rub laboratory and microbiology Laboratory Tests 03/14/24 03:10 Test 03/14/24 03:10 Range/Units Serum Glucose 132 H 74-106 mg/dL Assessment/Plan Acute kidney injury hemodynamically mediated concerning for ATN . 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 - progressive decline in kidney function, metabolic parameters acceptable however Dietary Evaluation Review Comments: 1) Consider Glucerna 1.2 @ 45ml/hr x 24hr goal rate as tolerated 2) If pt remains NPO initiate TPN within 2-3 days of NPO status as pt is underweight. 3) Advance pt diet when medically feasible to a CCHO 60g diet modified per JUNIOR SYSTEMS ANALYST recommendations. 4) Consider PARADISE 1 pkt BIDWM for wound 5) Continue current plan of care Expected Outcomes/Goals: 1) Pt to receive nutrition support within 2-3 days of NPO status. 2) Pt diet to advance 3) F/U in 2-3 days Plan discussed with: WALLY Maddox MD Mar 14, 2024 16:09
--- NOTE | 2024-03-14 16:11 | DVHPN2 ---
Subjective Intubated and sedated FiO2 30% PEEP is 5 Urine output is better Changes from previous H/P or p: Changes Objective Vitals Vital Signs Date Time Temp Pulse Resp B/P (MAP) Pulse Ox O2 Delivery O2 Flow Rate FiO2 03/14/24 15:31 96.8 72 18 113/47 96.8 03/14/24 14:21 100 30 03/14/24 13:31 Mechanical Ventilator+ Intake/Output Intake and Output 03/14/24 07:00 Intake Total 4109.740 ml Output Total 570 ml Balance 3539.740 ml Intake Oral 120 ml IV Total 3392.740 ml Tube Feeding 597 ml Output Urine Total 570 ml General Appearance: Other (Intubated and sedated) Lungs: Other (Bilateral rhonchi) Cardiovascular: Regular rate, Normal S1, Normal S2 Abdomen: Normal bowel sounds, Soft, No tenderness Extremities: No edema Medications Current Medications Medications Dose Ordered Sig/Hunter Route Start Time Stop Time Status Last Admin Dose Admin Pantoprazole Sodium 40 mg DAILY IV 03/12/24 10:00 03/14/24 10:03 40 MG Morphine Sulfate 2 mg Q4HP PRN IV 03/11/24 16:30 Ipratropium [place] 0.5 mg Q4HR NEB 03/11/24 18:00 03/14/24 14:21 0.5 MG Enoxaparin Sodium 30 mg DAILY SC 03/12/24 10:00 03/13/24 11:14 30 MG Vancomycin HCl 0 ml @ 0 mls/hr UD IV 03/11/24 16:30 Enteral Nutritional Formula 1,000 ml 40ML/HR GT 03/11/24 16:30 03/13/24 04:43 1,000 ML Fentanyl Citrate 250 ml @ 2.5 mls/hr Q24H IV 03/11/24 16:45 03/14/24 12:37 7.5 MLS/HR Propofol 100 ml @ 1.635 mls/ hr Q24H IV 03/12/24 05:30 03/14/24 12:22 1.635 MLS/HR Diagnostic Test (Pha) 1 strip ACHS 03/12/24 11:30 03/14/24 11:46 1 STRIP Insulin Human Regular ACHS SC 03/12/24 11:30 03/14/24 07:48 2 UNITS Dextrose 50 ml UD PRN IV 03/12/24 08:30 Lactated Ringer's 1,000 ml @ 100 mls/hr Q10H IV 03/12/24 10:30 03/14/24 06:24 100 MLS/HR Vasopressin 20 units/Sodium Chloride 100 ml @ 9 mls/hr Q11H7M IV 03/12/24 14:45 03/14/24 07:46 6 MLS/HR Lactulose 30 ml BID PO 03/13/24 22:00 03/14/24 10:03 30 ML Norepinephrine Bitartrate 250 ml @ 1.875 mls/ hr Q24H IV 03/14/24 12:30 03/14/24 12:38 5.625 MLS/HR Ampicillin Sodium/ Sulbactam Sodium 3 gm/Sodium Chloride 100 ml @ 100 mls/hr Q6H IV 03/14/24 14:00 Laboratory Results Laboratory Tests 03/14/24 03:10 Chemistry Test 03/14/24 03:10 Albumin 2.6 g/dL (3.2-4.8) L Calcium Level 8.5 mg/dL (8.7-10.4) L Magnesium Level 1.9 mg/dL (1.6-2.6) Total Protein 5.1 g/dL (5.7-8.2) L Coagulation Test 03/14/24 03:10 Prothrombin Time 14.0 sec (9.3-11.8) H Prothrombin Time INR 1.35 (0.9-1.15) H Activated Partial Thromboplast Time 39.6 SEC (24.5-34.5) H LFT Test 03/14/24 03:10 Alanine Aminotransferase (ALT) < 9 U/L (7-40) Alkaline Phosphatase 82 U/L (46-116) Aspartate Amino Transferase (AST) 9 U/L (13-40) L Total Bilirubin 0.4 mg/dL (0.2-1.0) Urinalysis Test 03/11/24 04:00 03/12/24 15:25 Urine Color Yellow (Yellow) Urine Clarity Turbid (Clear) H Urine pH 6.0 (5.0-9.0) Urine Specific [place] 1.016 (1.001-1.035) Urine Protein 1+ (Negative) H Urine Ketones Negative (Negative) Urine Blood 1+ /uL (Negative) H Urine Nitrite Negative (Negative) Urine Bilirubin Negative (Negative) Urine Urobilinogen 2 mg/dL (Negative) H Urine Leukocyte Esterase 3+ /uL (Negative) Urine RBC 24 /hpf (0 - 3) Urine WBC 280 /hpf (0 - 3) Urine Squamous Epithelial Cells Few /hpf (<5) Urine Bacteria Many /hpf (None Seen) H Urine Mucus Few (None Seen) Urine Glucose Normal mg/dL (Normal) Urine Creatinine 27.92 mg/dL (30.0-125.0) L Urine Sodium 82 mmol/L (40-220) Blood Gas Results Test 03/14/24 07:37 Arterial Blood pH 7.423 (7.350-7.450) FiO2 % 30.0 Microbiology Microbiology Date/Time Source Procedure Growth Status 03/12/24 18:05 Nose MRSA Screen - Final Complete 03/11/24 04:00 Urine - [place] Urine Culture - Final Klebsiella pneumoniae Enterococcus faecalis Complete 03/11/24 03:24 Blood Blood Culture - Preliminary NO GROWTH AFTER 72 HOURS OF INCUBATION. Resulted 03/11/24 03:20 Sputum Endotracheal Wash Gram Stain - Final Resulted 03/11/24 03:20 Sputum Endotracheal Wash Respiratory Culture - Preliminary Resulted Assessment/Plan Assessment/Plan Acute hypoxic respiratory failure Sepsis with septic shock UTI Multi lobar pneumonia Hypernatremia Hypoxemia Bed ridden x 2 years Large AAA 5.9 cm Constipation Diffuse mixed lytic osseous lesions suspicious for metastatic disease Bacteremia Gram-positive cocci in clusters Plan Admit to ICU Mechanical ventilation Broad-spectrum antibiotics Zosyn and vancomycin Sedation as needed: Discontinue Versed and start fentanyl drip, add propofol if needed DVT prophylaxis with Lovenox GI prophylaxis with Protonix IV Echo Get urine culture and blood culture and sputum culture Norepinephrine p.r.n. for blood pressure support Pulmonary consult Start tube feeding Discussed with his son over the phone Full code 03/12/2024: Hypokalemia and hypomagnesemia: Replace potassium and magnesium Sedation: Fentanyl and propofol as needed, titrate to RASS -3 Decreased urine output: Give bolus 500 mL, start feeding Broad-spectrum antibiotics: Vancomycin and Zosyn DVT prophylaxis: Lovenox GI prophylaxis: Protonix Full code Discussed with the son over the phone yesterday, full code for now 03/13/2024: Septic shock: Continue vasopressors as needed Possible acute tubular necrosis: Diuresis with Lasix and Bumex per Nephrology, add albumin IV Sepsis due to pneumonia and UTI: Continue Zosyn IV Sedation as needed with fentanyl and propofol Pulmonary consultation is on DVT prophylaxis with Lovenox GI prophylaxis with Protonix Full code Discussed with the his son over the phone again now, he said to try everything, full code, questions answered 03/14/24: Septic shock: Levophed Sepsis: IV antibiotics Anemia: Transfuse RBCs [place]: Hemodynamically mediated Hypotension: IV fluids Protein calorie malnutrition Pneumonia UTI Continue Support Full code Plan discussed with: Other My Orders Orders - ALBERTO FREEMAN MD Procedure Category Date Status Time Lactulose Oral PHA 03/13/24 In Process 22:00 Norepinephrine 8 PHA 03/14/24 In Process Mg/250ml Kit 12:30 Vancomycin,Random LAB 03/15/24 Verified 06:00 Creatinine LAB 03/15/24 Verified 06:00 Vancomycin Per SMITHA 03/14/24 In Process Pharmacy Protoc 14:17 Date of Service: Mar 14, 2024 Billing Provider: ALBERTO FREEMAN MD Common Visit Codes: NOT BILLABLE ALBERTO FREEMAN MD Mar 14, 2024 16:10
[2024-03-14 17:44] LABS: Hematocrit 28.5 % (41.0-53.0); Hemoglobin 9.1 g/dL (13.5-17.5)
[2024-03-14] MEDS: AMPICILLIN & SULBACTAM SODIUM 3 GM in SODIUM CHL 0.9% 100 ML IV SCH (18:18)
--- NOTE | 2024-03-14 18:29 | DVHPN2 ---
Progress Note - Dictate Date Seen: Mar 14, 2024 Medical Necessity Reason Pt with a Central, PICC or Fol: Yes The following are medically ne: Central Line, Sharpe Catheter Reason for sharpe catheter: Strict I&O Subjective Patient seen and examined at bedside. Sedated, intubated on mechanical ventilator. Overnight events reviewed. vital signs Vital Sign Date Time Temp Pulse Resp B/P (MAP) Pulse Ox O2 Delivery O2 Flow Rate FiO2 03/14/24 17:33 71 03/14/24 17:33 30 03/14/24 17:33 18 100 Mechanical Ventilator+ 03/14/24 17:30 97.8 117/66 (83) 97.8 121/53 (75) Total Intake and Output 03/13/24 03/13/24 03/14/24 15:00 23:00 07:00 Intake Total 1046.330 ml 1620.080 ml 1443.330 ml Output Total 45 ml 525 ml Balance 1046.330 ml 1575.080 ml 918.330 ml medications Current Medications Medications Dose Ordered Sig/[place] Route Start Time Stop Time Status Last Admin Dose Admin Pantoprazole Sodium 40 mg DAILY IV 03/12/24 10:00 03/14/24 10:03 40 MG Morphine Sulfate 2 mg Q4HP PRN IV 03/11/24 16:30 Ipratropium [place] 0.5 mg Q4HR NEB 03/11/24 18:00 03/14/24 18:16 0.5 MG Enoxaparin Sodium 30 mg DAILY SC 03/12/24 10:00 03/13/24 11:14 30 MG Vancomycin HCl 0 ml @ 0 mls/hr UD IV 03/11/24 16:30 Enteral Nutritional Formula 1,000 ml 40ML/HR GT 03/11/24 16:30 03/14/24 17:14 1,000 ML Fentanyl Citrate 250 ml @ 2.5 mls/hr Q24H IV 03/11/24 16:45 03/14/24 12:37 7.5 MLS/HR Propofol 100 ml @ 1.635 mls/ hr Q24H IV 03/12/24 05:30 03/14/24 12:22 1.635 MLS/HR Diagnostic Test (Pha) 1 strip ACHS 03/12/24 11:30 03/14/24 17:23 1 STRIP Insulin Human Regular ACHS SC 03/12/24 11:30 03/14/24 07:48 2 UNITS Dextrose 50 ml UD PRN IV 03/12/24 08:30 Lactated Ringer's 1,000 ml @ 100 mls/hr Q10H IV 03/12/24 10:30 03/14/24 16:48 100 MLS/HR Vasopressin 20 units/Sodium Chloride 100 ml @ 9 mls/hr Q11H7M IV 03/12/24 14:45 03/14/24 07:46 6 MLS/HR Lactulose 30 ml BID PO 03/13/24 22:00 03/14/24 10:03 30 ML Norepinephrine Bitartrate 250 ml @ 1.875 mls/ hr Q24H IV 03/14/24 12:30 03/14/24 12:38 5.625 MLS/HR Ampicillin Sodium/ Sulbactam Sodium 3 gm/Sodium Chloride 100 ml @ 100 mls/hr Q6H IV 03/14/24 14:00 03/14/24 18:18 100 MLS/HR objective Gen.: Patient lying in bed in medical ICU. Sedated, intubated on mechanical ventilator. Head: Normocephalic, atraumatic. Eyes: PERRLA. Ears: Normal external anatomy. Throat: Endotracheal tube and orogastric tube in place. Neck: Supple, trachea midline. Chest: Transmitted breath sounds bilaterally. Decreased air entry bilaterally. No wheezing. Bibasilar crackles. Cardiovascular: Positive S1, positive S2. Regular rate and rhythm. Abdomen: Positive bowel sounds in all 4 quadrants. Soft, nontender, nondistended. : Sharpe in place. Normal external genitalia. Rectal: Deferred. Skin: Warm, dry. Intact. Extremities: 2+ radial pulses bilaterally. No lower extremity edema. Neuro: Sedated. laboratory and microbiology Laboratory Tests 03/14/24 03:10 Test 03/14/24 03:10 Range/Units Serum Glucose 132 H 74-106 mg/dL Assessment/Plan Impression: Acute hypoxic respiratory failure On mechanical ventilator Sepsis with septic shock UTI Multilobar pneumonia Hypernatremia Hypoxemia Bed ridden x 2 years Large AAA 5.9 cm Constipation Diffuse mixed lytic osseous lesions suspicious for metastatic disease Hx of nicotine dependence Events: Remains on vent support On AC mode; RR 18/VT 500/PEEP 5/FiO2 30% Sedated on Propofol, Fentanyl Pt received 2 units PRBC transfusion Monitor hemoglobin On pressors for hemodynamic support Levophed 3 mcg/min Titrate to keep mean arterial pressure greater than 65 mmHg. Off vasopressin. Improved pressor requirements. Continue antibiotics Tube feeds for nutritional support. IV fluid hydration at 100 ml/hr. Albumin Labs and imaging reviewed. Rest of plan as noted below. Plan: s/p intubation on mechanical ventilator. CXR image and report reviewed. Devices in place. Multifocal pneumonia. No pneumothorax. No pleural effusion. ABG reviewed, compensated. On AC mode; RR 18/VT 500/PEEP 5/FiO2 30%. Titrate FIO2 to keep O2 saturation above 90%. VAP bundle. Daily ABG and CXR while intubated Sedate for ventilator synchrony - on Propofol, Fentanyl. On pressors for hemodynamic support Titrate to keep mean arterial pressure greater than 65 mmHg. Obtain consent for bronchoscopy and arterial line placement. Broad-spectrum antibiotics, Zosyn and vancomycin F/u cultures - Blood cultures show no growth x24 hours Tube feeds for nutritional support Monitor renal function Monitor electrolytes. Supplement as necessary. Monitor ins and outs. Maintain euvolemia Wound care Accu-Cheks, ISS. Lactic acid trending down. 500 mL bolus of IV fluids with LR at 100 ml/hr. GI prophylaxis with Protonix IV DVT prophylaxis with Lovenox Prognosis: Poor given patient's multiple co-morbidities. Condition: Critical Rest of plan per hospitalist and other consultants. A total of 35 minutes of critical care time was spent reviewing the patient record, examining the patient, making a diagnostic and therapeutic plan, discussing this plan with the medical personnel, following up on diagnostic studies and following the patient for clinical stability excluding any and all procedures. At least 50% of this time was spent in direct, [id number] contact. Thank you Dr. Graham Espitia MD, for allowing me to participate in this patient's care. Further recommendations will depend on the patient's clinical course. Please do not hesitate to contact me if you have any questions or concerns. This medical document was created using an electronic medical record system with [employer] system. Although these documentations are being carefully reviewed, there may still be some phonetic and typographical changes. The errors are purely typographical, due to imperfection on the software program, and do not reflect any compromise in the patient's medical care. Dietary Evaluation Review Comments: 1) Consider Glucerna 1.2 @ 45ml/hr x 24hr goal rate as tolerated 2) If pt remains NPO initiate TPN within 2-3 days of NPO status as pt is underweight. 3) Advance pt diet when medically feasible to a [place] 60g diet modified per [employer] recommendations. 4) Consider [place] 1 pkt BIDWM for wound 5) Continue current plan of care Expected Outcomes/Goals: 1) Pt to receive nutrition support within 2-3 days of NPO status. 2) Pt diet to advance 3) F/U in 2-3 days Plan discussed with: Other (IRENE Dowling) Critical Care Time(min): 35 GERRY FERRO MD Mar 14, 2024 18:29
[2024-03-15] VITALS (109 sets, daily range): BP systolic 81–156; BP diastolic 36–87; PULSE 71–107; RESP 16–27; TEMP 96.3–98.2; O2SAT 97–100
[2024-03-15 06:41] LABS: Base Excess -3.9 mmol/L (-2.0-3.0)
[2024-03-15 07:28] LABS: Hemoglobin 9.6 g/dL (13.5-17.5); Mean Corpuscular Hemoglobin 27.8 pg (28.0-32.0); Mean Corpuscular Volume 84.4 fL (80.0-100.0); Platelet Count (auto) 113 10^3/uL (140-450); Red Blood Cells 3.43 10^6/uL (4.5-5.90); Red Cell Distribution Width 16.1 % (11.8-14.3); White Blood Cell 22.3 10^3/uL (4.4-10.8)
[2024-03-15 07:42] LABS: Band Neutrophils % (manual) 0; Basophils % (manual) 0 (0.0-2.0); Blast Cells 0; Eosinophils % (manual) 0 (0-7); Metamyelocytes % 0; Myelocytes % 0; Promyelocytes % 0; Reactive Lymphocytes 0
[2024-03-15 07:46] LABS: Alkaline Phosphatase 99 U/L (46-116); Anion Gap 11 (5-15); Aspartate Aminotransferase 13 U/L (13-40); BUN/Creatinine Ratio 30.5 (10.0-20.0); Bilirubin, Total 0.4 mg/dL (0.2-1.0); Carbon Dioxide 23 mmol/L (20-31); Glucose 101 mg/dL (74-106); Magnesium 1.8 mg/dL (1.6-2.6); Potassium 3.5 mmol/L (3.5-5.1)
[2024-03-15 07:51] LABS: Alanine Aminotransferase < 9 U/L (7-40); Albumin 2.4 g/dL (3.2-4.8); Blood Urea Nitrogen 46 mg/dL (9-23); Calcium 8.5 mg/dL (8.7-10.4); Chloride 112 mmol/L (98-107); Sodium 146 mmol/L (136-145)
[2024-03-15 09:13] LABS: Lymphocytes % (manual) 9 (10.0-50.0); Monocytes % (manual) 5 (0-12); Platelet Estimate Decreased
--- NOTE | 2024-03-15 10:45 | DVHPN2 ---
Subjective Intubated and sedated FiO2 30% PEEP is 5 Urine output is better More edematous Levophed at 1 mcg Changes from previous H/P or p: Changes Objective Vitals Vital Signs Date Time Temp Pulse Resp B/P (MAP) Pulse Ox O2 Delivery O2 Flow Rate FiO2 03/15/24 10:00 100 Mechanical Ventilator+ 30 30 03/15/24 10:00 18 03/15/24 10:00 80 03/15/24 10:00 97.3 94/55 (68) 207.1 110/44 (66) Intake/Output Intake and Output 03/15/24 07:00 Intake Total 5204.355 ml Output Total 1700 ml Balance 3504.355 ml Intake Oral 250 ml IV Total 3488.355 ml Tube Feeding 866 ml Blood Product 600 ml Output Urine Total 1700 ml # Bowel Movements 4 General Appearance: Other (Intubated and sedated) Lungs: Other (Bilateral rhonchi) Cardiovascular: Regular rate, Normal S1, Normal S2 Abdomen: Normal bowel sounds, Soft, No tenderness Extremities: No edema Medications Current Medications Medications Dose Ordered Sig/[place] Route Start Time Stop Time Status Last Admin Dose Admin Pantoprazole Sodium 40 mg DAILY IV 03/12/24 10:00 03/15/24 08:54 40 MG Morphine Sulfate 2 mg Q4HP PRN IV 03/11/24 16:30 Ipratropium [place] 0.5 mg Q4HR NEB 03/11/24 18:00 03/15/24 09:45 0.5 MG Enoxaparin Sodium 30 mg DAILY SC 03/12/24 10:00 03/13/24 11:14 30 MG Vancomycin HCl 0 ml @ 0 mls/hr UD IV 03/11/24 16:30 Enteral Nutritional Formula 1,000 ml 40ML/HR GT 03/11/24 16:30 03/14/24 17:14 1,000 ML Fentanyl Citrate 250 ml @ 2.5 mls/hr Q24H IV 03/11/24 16:45 03/14/24 12:37 7.5 MLS/HR Propofol 100 ml @ 1.635 mls/ hr Q24H IV 03/12/24 05:30 03/15/24 09:38 1.635 MLS/HR Diagnostic Test (Pha) 1 strip ACHS 03/12/24 11:30 03/15/24 07:11 1 STRIP Insulin Human Regular ACHS SC 03/12/24 11:30 03/14/24 07:48 2 UNITS Dextrose 50 ml UD PRN IV 03/12/24 08:30 Lactated Ringer's 1,000 ml @ 100 mls/hr Q10H IV 03/12/24 10:30 03/15/24 01:50 100 MLS/HR Vasopressin 20 units/Sodium Chloride 100 ml @ 9 mls/hr Q11H7M IV 03/12/24 14:45 03/14/24 07:46 6 MLS/HR Lactulose 30 ml BID PO 03/13/24 22:00 03/15/24 08:54 30 ML Norepinephrine Bitartrate 250 ml @ 1.875 mls/ hr Q24H IV 03/14/24 12:30 03/14/24 12:38 5.625 MLS/HR Ampicillin Sodium/ Sulbactam Sodium 3 gm/Sodium Chloride 100 ml @ 100 mls/hr Q6H IV 03/14/24 14:00 03/15/24 08:54 100 MLS/HR Laboratory Results Laboratory Tests 03/15/24 03:46 Chemistry Test 03/15/24 03:46 Albumin 2.4 g/dL (3.2-4.8) L Calcium Level 8.5 mg/dL (8.7-10.4) L Magnesium Level 1.8 mg/dL (1.6-2.6) Total Protein 5.0 g/dL (5.7-8.2) L LFT Test 03/15/24 03:46 Alanine Aminotransferase (ALT) < 9 U/L (7-40) Alkaline Phosphatase 99 U/L (46-116) Aspartate Amino Transferase (AST) 13 U/L (13-40) Total Bilirubin 0.4 mg/dL (0.2-1.0) Urinalysis Test 03/11/24 04:00 03/12/24 15:25 Urine Color Yellow (Yellow) Urine Clarity Turbid (Clear) H Urine pH 6.0 (5.0-9.0) Urine Specific [place] 1.016 (1.001-1.035) Urine Protein 1+ (Negative) H Urine Ketones Negative (Negative) Urine Blood 1+ /uL (Negative) H Urine Nitrite Negative (Negative) Urine Bilirubin Negative (Negative) Urine Urobilinogen 2 mg/dL (Negative) H Urine Leukocyte Esterase 3+ /uL (Negative) Urine RBC 24 /hpf (0 - 3) Urine WBC 280 /hpf (0 - 3) Urine Squamous Epithelial Cells Few /hpf (<5) Urine Bacteria Many /hpf (None Seen) H Urine Mucus Few (None Seen) Urine Glucose Normal mg/dL (Normal) Urine Creatinine 27.92 mg/dL (30.0-125.0) L Urine Sodium 82 mmol/L (40-220) Blood Gas Results Test 03/15/24 06:34 Arterial Blood pH 7.395 (7.350-7.450) FiO2 % 30.0 Microbiology Microbiology Date/Time Source Procedure Growth Status 03/12/24 18:05 Nose MRSA Screen - Final Complete 03/11/24 04:00 Urine - [place] Urine Culture - Final Klebsiella pneumoniae Enterococcus faecalis Complete 03/11/24 03:24 Blood Blood Culture - Preliminary NO GROWTH AFTER 72 HOURS OF INCUBATION. Resulted 03/11/24 03:20 Sputum Endotracheal Wash Gram Stain - Final Resulted 03/11/24 03:20 Sputum Endotracheal Wash Respiratory Culture - Preliminary Resulted Assessment/Plan Assessment/Plan Acute hypoxic respiratory failure Sepsis with septic shock UTI Multi lobar pneumonia Hypernatremia Hypoxemia Bed ridden x 2 years Large AAA 5.9 cm Constipation Diffuse mixed lytic osseous lesions suspicious for metastatic disease Bacteremia Gram-positive cocci in clusters Plan Admit to ICU Mechanical ventilation Broad-spectrum antibiotics Zosyn and vancomycin Sedation as needed: Discontinue Versed and start fentanyl drip, add propofol if needed DVT prophylaxis with Lovenox GI prophylaxis with Protonix IV Echo Get urine culture and blood culture and sputum culture Norepinephrine p.r.n. for blood pressure support Pulmonary consult Start tube feeding Discussed with his son over the phone Full code 03/12/2024: Hypokalemia and hypomagnesemia: Replace potassium and magnesium Sedation: Fentanyl and propofol as needed, titrate to RASS -3 Decreased urine output: Give bolus 500 mL, start feeding Broad-spectrum antibiotics: Vancomycin and Zosyn DVT prophylaxis: Lovenox GI prophylaxis: Protonix Full code Discussed with the son over the phone yesterday, full code for now 03/13/2024: Septic shock: Continue vasopressors as needed Possible acute tubular necrosis: Diuresis with Lasix and Bumex per Nephrology, add albumin IV Sepsis due to pneumonia and UTI: Continue Zosyn IV Sedation as needed with fentanyl and propofol Pulmonary consultation is on DVT prophylaxis with Lovenox GI prophylaxis with Protonix Full code Discussed with the his son over the phone again now, he said to try everything, full code, questions answered 03/14/24: Septic shock: Levophed Sepsis: IV antibiotics Anemia: Transfuse RBCs [place]: Hemodynamically mediated Hypotension: IV fluids Protein calorie malnutrition Pneumonia UTI Continue Support Full code 03/15/24: Edema: Bumex 1 mg IV x1, discuss with nephrology Sepsis, PNA, UTI: Unasyn and Vanco [place] / Hypernatremia: DC IV fluids for now, Nephrology consult, Anemia: Received 2 units RBCs yesterday Malnutrition Taper Levophed as tolerated Sedation as needed Tube feeding Fluid overload?: DC IV fluids, discuss with nephrology Plan discussed with: Other My Orders Orders - ALBERTO FREEMAN MD Procedure Category Date Status Time Norepinephrine 8 PHA 03/14/24 In Process Mg/250ml Kit 12:30 Vancomycin Per SMITHA 03/14/24 In Process Pharmacy [facility] 14:17 Chest Portable XY 03/15/24 Taken 07:00 Bumetanide Injection PHA 03/15/24 Transmitted (Bumex Injection) 10:45 Date of Service: Mar 15, 2024 Billing Provider: ALBERTO FREEMAN MD Common Visit Codes: NOT BILLABLE ALBERTO FREEMAN MD Mar 15, 2024 10:45
--- NOTE | 2024-03-15 11:37 | DVH ---
CHEST RADIOGRAPH Indication: INTUBATED Technique: Single frontal view of the chest was obtained COMPARISON: XY CHEST PORTABLE on DOS: 03/14/24, XY CHEST PORTABLE on DOS: 03/13/24, XY CHEST PORTABLE o n DOS: 03/12/24, XY CHEST XRAY 1 VIEW on DOS: 03/11/24, XY CHEST XRAY 1 VIEW on DOS: 03/11/24 FINDINGS: Lines and Tubes: Endotracheal tube terminates 3.1 cm above the matt. Enteric tube courses below the diaphragm with tip collimated from view. Lungs: Bibasilar opacities may reflect mild pneumonia. Pleura: No effusion. No pneumothorax. Cardiomediastinal contours: Unremarkable Bones: Unremarkable IMPRESSION: 1. Endotracheal tube in good position. 2. Bibasilar opacities may reflect mild pneumonia. Aeration is stable to minimally improved since Mar.
[2024-03-15] MEDS: BUMETANIDE 2.5mg/10ml (0.25 mg/ml) INJ IV ONE (11:50)
--- NOTE | 2024-03-15 12:52 | DVHPN2 ---
Progress Note - Dictate Date Seen: Mar 15, 2024 Medical Necessity Reason Pt with a Central, PICC or Fol: Yes The following are medically ne: Central Line, Sharpe Catheter Reason for sharpe catheter: Strict I&O Subjective no significant overnight events vital signs Vital Sign Date Time Temp Pulse Resp B/P (MAP) Pulse Ox O2 Delivery O2 Flow Rate FiO2 03/15/24 12:15 96.4 82 18 88/55 (66) 99 205.5 109/50 (69) 03/15/24 12:02 30 03/15/24 12:00 Mechanical Ventilator+ Total Intake and Output 03/14/24 03/14/24 03/15/24 15:00 23:00 07:00 Intake Total 1382.195 ml 1803.080 ml 2019.080 ml Output Total 500 ml 1200 ml Balance 1382.195 ml 1303.080 ml 819.080 ml medications Current Medications Medications Dose Ordered Sig/[place] Route Start Time Stop Time Status Last Admin Dose Admin Pantoprazole Sodium 40 mg DAILY IV 03/12/24 10:00 03/15/24 08:54 40 MG Morphine Sulfate 2 mg Q4HP PRN IV 03/11/24 16:30 Ipratropium [place] 0.5 mg Q4HR NEB 03/11/24 18:00 03/15/24 09:45 0.5 MG Enoxaparin Sodium 30 mg DAILY SC 03/12/24 10:00 03/15/24 11:46 30 MG Vancomycin HCl 0 ml @ 0 mls/hr UD IV 03/11/24 16:30 Enteral Nutritional Formula 1,000 ml 40ML/HR GT 03/11/24 16:30 03/14/24 17:14 1,000 ML Propofol 100 ml @ 1.635 mls/ hr Q24H IV 03/12/24 05:30 03/15/24 09:38 1.635 MLS/HR Diagnostic Test (Pha) 1 strip ACHS 03/12/24 11:30 03/15/24 11:49 1 STRIP Insulin Human Regular ACHS SC 03/12/24 11:30 03/14/24 07:48 2 UNITS Dextrose 50 ml UD PRN IV 03/12/24 08:30 Vasopressin 20 units/Sodium Chloride 100 ml @ 9 mls/hr Q11H7M IV 03/12/24 14:45 03/14/24 07:46 6 MLS/HR Lactulose 30 ml BID PO 03/13/24 22:00 03/15/24 08:54 30 ML Norepinephrine Bitartrate 250 ml @ 1.875 mls/ hr Q24H IV 03/14/24 12:30 03/14/24 12:38 5.625 MLS/HR Ampicillin Sodium/ Sulbactam Sodium 3 gm/Sodium Chloride 100 ml @ 100 mls/hr Q6H IV 03/14/24 14:00 03/15/24 08:54 100 MLS/HR Fentanyl Citrate 250 ml @ 2.5 mls/hr Q24H IV 03/15/24 11:00 objective Gen: nad, intubated and sedated heent: nc/at, lungs: Coarse breath sounds cvs: no rub laboratory and microbiology Laboratory Tests 03/15/24 03:46 Test 03/15/24 03:46 Range/Units Serum Glucose 101 74-106 mg/dL Assessment/Plan Acute kidney injury hemodynamically mediated concerning for ATN . FENA 2% + vancotoxicity Significant hypotension noted Septic shock due to multiple sources including decubitus ulcer as well as urinary tract infection Protein calorie malnutrition Pneumonia multi lobar s/p bronchoscopy shows mucous plug - agree with trial of diuresis - We will also initiate Bumex drip at a low rate and evaluate response Dietary Evaluation Review Comments: 1) Consider Glucerna 1.2 @ 45ml/hr x 24hr goal rate as tolerated 2) If pt remains NPO initiate TPN within 2-3 days of NPO status as pt is underweight. 3) Advance pt diet when medically feasible to a [facility] diet modified per [employer] [facility] recommendations. 4) Consider [place] 1 pkt BIDWM for wound 5) Continue current plan of care Expected Outcomes/Goals: 1) Pt to receive nutrition support within 2-3 days of NPO status. 2) Pt diet to advance 3) F/U in 2-3 days Plan discussed with: WALLY Maddox MD Mar 15, 2024 12:52
[2024-03-15] MEDS: BUMETANIDE INJECTION 12.5 MG in GIVE UN-DILUTED 0 ML IV SCH (14:52)
--- NOTE | 2024-03-15 16:14 | DVHPN2 ---
Progress Note - Dictate Date Seen: Mar 15, 2024 Medical Necessity Reason Pt with a Central, PICC or Fol: Yes The following are medically ne: Central Line, Sharpe Catheter Reason for sharpe catheter: Strict I&O Subjective Patient is Intubated and sedated. FiO2 30% Urine output is better. More edematous Culture History: 03/11, Sputum culture preliminary showed Normal Oropharyngeal Eugenia 03/11, Blood culture showed Staph hominis subsp homins. Repeat blood culture showed no growth after 72 hours of intubation. 1203, Urine culture showed Klebsiella pneumoniae >100,000 CFU/ML and E nterococcus faecalis >100,000 CFU/ML 03/11, Wound culture showed Escherichia coli and Enterococcus faecalis 03/12, MRSA screening: Negative Review of imaging shows: 03/15, Chest x-ray: Endotracheal tube in good position. Bibasilar opacities may reflect mild pneumonia. Aeration is stable to minimally improved since March 14, 2024. 03/11, Head CT: No evidence of acute intracranial hemorrhage or mass effect. Mild ventriculomegaly. Mild hydrocephalus is not excluded. vital signs Vital Sign Date Time Temp Pulse Resp B/P (MAP) Pulse Ox O2 Delivery O2 Flow Rate FiO2 03/15/24 15:43 30 03/15/24 15:43 95 03/15/24 15:43 18 100 Mechanical Ventilator+ 03/15/24 15:40 99/62 (74) 03/15/24 15:15 96.3 205.3 Total Intake and Output 03/14/24 03/14/24 03/15/24 15:00 23:00 07:00 Intake Total 1382.195 ml 1803.080 ml 2019.080 ml Output Total 500 ml 1200 ml Balance 1382.195 ml 1303.080 ml 819.080 ml medications Current Medications Medications Dose Ordered Sig/Hunter Route Start Time Stop Time Status Last Admin Dose Admin Pantoprazole Sodium 40 mg DAILY IV 03/12/24 10:00 03/15/24 08:54 40 MG Morphine Sulfate 2 mg Q4HP PRN IV 03/11/24 16:30 Ipratropium [place] 0.5 mg Q4HR NEB 03/11/24 18:00 03/15/24 13:46 0.5 MG Enoxaparin Sodium 30 mg DAILY SC 03/12/24 10:00 03/15/24 11:46 30 MG Vancomycin HCl 0 ml @ 0 mls/hr UD IV 03/11/24 16:30 Enteral Nutritional Formula 1,000 ml 40ML/HR GT 03/11/24 16:30 03/14/24 17:14 1,000 ML Propofol 100 ml @ 1.635 mls/ hr Q24H IV 03/12/24 05:30 03/15/24 09:38 1.635 MLS/HR Diagnostic Test (Pha) 1 strip ACHS 03/12/24 11:30 03/15/24 11:49 1 STRIP Insulin Human Regular ACHS SC 03/12/24 11:30 03/14/24 07:48 2 UNITS Dextrose 50 ml UD PRN IV 03/12/24 08:30 Vasopressin 20 units/Sodium Chloride 100 ml @ 9 mls/hr Q11H7M IV 03/12/24 14:45 03/14/24 07:46 6 MLS/HR Lactulose 30 ml BID PO 03/13/24 22:00 03/15/24 08:54 30 ML Norepinephrine Bitartrate 250 ml @ 1.875 mls/ hr Q24H IV 03/14/24 12:30 03/14/24 12:38 5.625 MLS/HR Ampicillin Sodium/ Sulbactam Sodium 3 gm/Sodium Chloride 100 ml @ 100 mls/hr Q6H IV 03/14/24 14:00 03/15/24 13:47 100 MLS/HR Fentanyl Citrate 250 ml @ 2.5 mls/hr Q24H IV 03/15/24 11:00 Bumetanide 12.5 mg/Miscellaneous 50 ml @ 2 mls/hr Q24H IV 03/15/24 13:00 03/15/24 14:52 2 MLS/HR objective General: Patient lying in bed in medical ICU. Sedated, intubated on mechanical ventilator. Head: Normocephalic, atraumatic. Eyes: PERRLA. Ears: Normal external anatomy. Throat: Endotracheal tube and orogastric tube in place. Neck: Supple, trachea midline. Chest: Transmitted breath sounds bilaterally. Decreased air entry bilaterally. No wheezing. Bibasilar crackles. Cardiovascular: Positive S1, positive S2. Regular rate and rhythm. Abdomen: Positive bowel sounds in all 4 quadrants. Soft, nontender, nondistended. : Sharpe in place. Normal external genitalia. Rectal: Deferred. Skin: Warm, dry. Intact. Extremities: 2+ radial pulses bilaterally. No lower extremity edema. Neuro: Sedated. laboratory and microbiology Laboratory Tests 03/15/24 03:46 Test 03/15/24 03:46 Range/Units Serum Glucose 101 74-106 mg/dL Assessment/Plan Patient is a 83-year-old male presents to the hospital with: Septic shock leucoctysis Ecoli/ kle[place]seilla infection Staphylococcus hominis bacteremia concern for metastatic disease: ALOC acute hypoxic respiratory failure UTI [place] Recommendations blood culture is likely contamination, however repeat two sets currently on Vancomycin, trough is high, hold the dose and repeat levels, 03/15 Random trough 22.9 cont Unasyn : both GN are sensitive pressors are coming down concern for underlying malignancy. Patient has never seen doctor prognosis guarded critical time greater than 35 minutes spent in management Dietary Evaluation Review Comments: 1) Consider Glucerna 1.2 @ 45ml/hr x 24hr goal rate as tolerated 2) If pt remains NPO initiate TPN within 2-3 days of NPO status as pt is underweight. 3) Advance pt diet when medically feasible to a CCHO 60g diet modified per FRETTED INSTRUMENT REPAIRER recommendations. 4) Consider PARADISE 1 pkt BIDWM for wound 5) Continue current plan of care Expected Outcomes/Goals: 1) Pt to receive nutrition support within 2-3 days of NPO status. 2) Pt diet to advance 3) F/U in 2-3 days Plan discussed with: Other DELMY STERLING MD Mar 15, 2024 16:14
--- NOTE | 2024-03-15 22:31 | DVHPN2 ---
Progress Note - Dictate Date Seen: Mar 15, 2024 Medical Necessity Reason Pt with a Central, PICC or Fol: Yes The following are medically ne: Central Line, Sharpe Catheter Reason for sharpe catheter: Strict I&O Subjective Patient seen and examined at bedside. Sedated, intubated on mechanical ventilator. Overnight events reviewed. vital signs Vital Sign Date Time Temp Pulse Resp B/P (MAP) Pulse Ox O2 Delivery O2 Flow Rate FiO2 03/15/24 22:00 124/75 03/15/24 21:55 18 100 Mechanical Ventilator+ 30 30 03/15/24 21:55 100 03/15/24 21:45 98.2 208.8 Total Intake and Output 03/14/24 03/14/24 03/15/24 15:00 23:00 07:00 Intake Total 1382.195 ml 1803.080 ml 2019.080 ml Output Total 500 ml 1200 ml Balance 1382.195 ml 1303.080 ml 819.080 ml medications Current Medications Medications Dose Ordered Sig/Hunter Route Start Time Stop Time Status Last Admin Dose Admin Pantoprazole Sodium 40 mg DAILY IV 03/12/24 10:00 03/15/24 08:54 40 MG Morphine Sulfate 2 mg Q4HP PRN IV 03/11/24 16:30 Ipratropium [place] 0.5 mg Q4HR NEB 03/11/24 18:00 03/15/24 22:09 0.5 MG Enoxaparin Sodium 30 mg DAILY SC 03/12/24 10:00 03/15/24 11:46 30 MG Vancomycin HCl 0 ml @ 0 mls/hr UD IV 03/11/24 16:30 Enteral Nutritional Formula 1,000 ml 40ML/HR GT 03/11/24 16:30 03/14/24 17:14 1,000 ML Propofol 100 ml @ 1.635 mls/ hr Q24H IV 03/12/24 05:30 03/15/24 09:38 1.635 MLS/HR Diagnostic Test (Pha) 1 strip ACHS 03/12/24 11:30 03/15/24 17:46 1 STRIP Insulin Human Regular ACHS SC 03/12/24 11:30 03/14/24 07:48 2 UNITS Dextrose 50 ml UD PRN IV 03/12/24 08:30 Vasopressin 20 units/Sodium Chloride 100 ml @ 9 mls/hr Q11H7M IV 03/12/24 14:45 03/14/24 07:46 6 MLS/HR Lactulose 30 ml BID PO 03/13/24 22:00 03/15/24 08:54 30 ML Norepinephrine Bitartrate 250 ml @ 1.875 mls/ hr Q24H IV 03/14/24 12:30 03/14/24 12:38 5.625 MLS/HR Ampicillin Sodium/ Sulbactam Sodium 3 gm/Sodium Chloride 100 ml @ 100 mls/hr Q6H IV 03/14/24 14:00 03/15/24 20:52 100 MLS/HR Fentanyl Citrate 250 ml @ 2.5 mls/hr Q24H IV 03/15/24 11:00 Bumetanide 12.5 mg/Miscellaneous 50 ml @ 2 mls/hr Q24H IV 03/15/24 13:00 03/15/24 14:52 2 MLS/HR objective Gen.: Patient lying in bed in medical ICU. Sedated, intubated on mechanical ventilator. Head: Normocephalic, atraumatic. Eyes: PERRLA. Ears: Normal external anatomy. Throat: Endotracheal tube and orogastric tube in place. Neck: Supple, trachea midline. Chest: Transmitted breath sounds bilaterally. Decreased air entry bilaterally. No wheezing. Bibasilar crackles. Cardiovascular: Positive S1, positive S2. Regular rate and rhythm. Abdomen: Positive bowel sounds in all 4 quadrants. Soft, nontender, nondistended. : Sharpe in place. Normal external genitalia. Rectal: Deferred. Skin: Warm, dry. Intact. Extremities: 2+ radial pulses bilaterally. No lower extremity edema. Neuro: Sedated. 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 CXR demonstrates multifocal opacities, devices in place. Sedated on Propofol, Fentanyl S/p PRBC transfusion, hemoglobin of 9.6 g/dL Continue to monitor hgb WBC elevated at 22.3 K Continue antibiotics On pressors for hemodynamic support Levophed 2 mcg/min Titrate to keep mean arterial pressure greater than 65 mmHg. Improved pressor requirements. Tube feeds for nutritional support. IV fluid hydration at 100 ml/hr. Albumin Monitor renal function - creatinine 1.51 Monitor electrolytes. Supplement as necessary. Monitor UOP. Labs and imaging reviewed. Rest of plan as noted below. Plan: s/p intubation on mechanical ventilator. ABG reviewed, compensated. On AC mode; RR 18/VT 500/PEEP 5/FiO2 30%. Titrate FIO2 to keep O2 saturation above 90%. VAP bundle. Daily ABG and CXR while intubated Sedate for ventilator synchrony On pressors for hemodynamic support Titrate to keep mean arterial pressure greater than 65 mmHg. Obtain consent for bronchoscopy and arterial line placement. Antibiotics F/u cultures - Blood cultures show no growth x24 hours Tube feeds for nutritional support Monitor renal function Monitor electrolytes. Supplement as necessary. Monitor ins and outs. Maintain euvolemia Wound care Accu-Cheks, ISS. Lactic acid trending down. 500 mL bolus of IV fluids with LR at 100 ml/hr. GI prophylaxis with Protonix IV DVT prophylaxis with Lovenox Prognosis: Poor given patient's multiple co-morbidities. Condition: Critical Rest of plan per hospitalist and other consultants. A total of 35 minutes of critical care time was spent reviewing the patient record, examining the patient, making a diagnostic and therapeutic plan, discussing this plan with the medical personnel, following up on diagnostic studies and following the patient for clinical stability excluding any and all procedures. At least 50% of this time was spent in direct, [id number] contact. Thank you Dr. Graham Espitia MD, for allowing me to participate in this patient's care. Further recommendations will depend on the patient's clinical course. Please do not hesitate to contact me if you have any questions or concerns. This medical document was created using an electronic medical record system with [employer] system. Although these documentations are being carefully reviewed, there may still be some phonetic and typographical changes. The errors are purely typographical, due to imperfection on the software program, and do not reflect any compromise in the patient's medical care. Dietary Evaluation Review Comments: 1) Consider Glucerna 1.2 @ 45ml/hr x 24hr goal rate as tolerated 2) If pt remains NPO initiate TPN within 2-3 days of NPO status as pt is underweight. 3) Advance pt diet when medically feasible to a CCHO 60g diet modified per REHABILITATION MANAGER recommendations. 4) Consider PARADISE 1 pkt BIDWM for wound 5) Continue current plan of care Expected Outcomes/Goals: 1) Pt to receive nutrition support within 2-3 days of NPO status. 2) Pt diet to advance 3) F/U in 2-3 days Plan discussed with: Other (IRENE Dowling) Critical Care Time(min): 35 GERRY FERRO MD Mar 15, 2024 22:30
[2024-03-16] VITALS (106 sets, daily range): BP systolic 78–153; BP diastolic 47–93; PULSE 79–111; RESP 13–24; TEMP 93.2–97.9; O2SAT 95–100
[2024-03-16] MEDS: fentaNYL Drip 2500mCg/250mlNS 250 ML IV SCH (01:48)
[2024-03-16 04:25] LABS: Basophils # (auto) 0 10 ^3/uL (0-0.2); Eosinophils # (auto) 0 10 ^3/uL (0-0.8); Eosinophils % (auto) 0.1 % (0.0-7.0); Hemoglobin 10.4 g/dL (13.5-17.5); Nucleated Red Blood Cells % 0.1 %; Red Blood Cells 3.86 10^6/uL (4.5-5.90)
[2024-03-16 04:28] LABS: Hematocrit 32.4 % (41.0-53.0); Lymphocytes # (auto) 1.3 10 ^3/uL (0.4-5.4); Lymphocytes % (auto) 5.3 % (10.0-50.0); Mean Corpuscular Hgb Conc. 32.2 g/dL (32.0-36.0); Mean Corpuscular Volume 83.9 fL (80.0-100.0); Monocytes # (auto) 0.4 10 ^3/uL (0-1.3); Monocytes % (auto) 1.5 % (0.0-12.0); Neutrophils # (auto) 22.9 10 ^3/uL (1.6-8.6); Neutrophils % (auto) 93.1 % (37.0-80.0); Platelet Count (auto) 98 10^3/uL (140-450); White Blood Cell 24.6 10^3/uL (4.4-10.8)
[2024-03-16 04:50] LABS: Alkaline Phosphatase 116 U/L (46-116); Anion Gap 14 (5-15); Bilirubin, Total 0.4 mg/dL (0.2-1.0); Carbon Dioxide 22 mmol/L (20-31); Glucose 95 mg/dL (74-106); Magnesium 1.9 mg/dL (1.6-2.6)
[2024-03-16 05:23] LABS: Alanine Aminotransferase < 9 U/L (7-40); Albumin 2.4 g/dL (3.2-4.8); Aspartate Aminotransferase 11 U/L (13-40); Blood Urea Nitrogen 51 mg/dL (9-23); Calcium 8.6 mg/dL (8.7-10.4); Chloride 111 mmol/L (98-107); Potassium 3.1 mmol/L (3.5-5.1); Sodium 147 mmol/L (136-145); Total Protein 5.2 g/dL (5.7-8.2)
--- NOTE | 2024-03-16 06:10 | DVH ---
CHEST RADIOGRAPH Indication: vent Technique: Single frontal view of the chest was obtained Comparison: XY CHEST PORTABLE on DOS: 03/15/24, XY CHEST PORTABLE on DOS: 03/14/24, XY CHEST PORTABLE o n DOS: 03/13/24, XY CHEST PORTABLE on DOS: 03/12/24, XY CHEST XRAY 1 VIEW on DOS: 03/11/24, XY CHEST POR TABLE on DOS: 03/15/24 FINDINGS: Lines and Tubes: Endotracheal tube terminates 3.1 cm above the matt. Enteric tube courses below the diaphragm with tip collimated from view. Lungs: Bibasilar opacities may reflect mild pneumonia. Pleura: No effusion. No pneumothorax. Cardiomediastinal contours: Unremarkable Bones: Unremarkable IMPRESSION: 1. Endotracheal tube in good position. 2. Bibasilar opacities may reflect mild pneumonia. Aeration is stable to minimally improved since Mar.
[2024-03-16] MEDS: POTASSIUM EFFERVESENT TAB 25 MEQ GT ONE (06:31)
[2024-03-16 07:06] LABS: Base Excess -3.6 mmol/L (-2.0-3.0)
--- NOTE | 2024-03-16 16:45 | DVHPN2 ---
Progress Note - Dictate Date Seen: Mar 16, 2024 Medical Necessity Reason Pt with a Central, PICC or Fol: Yes The following are medically ne: Central Line, Sharpe Catheter Reason for sharpe catheter: Strict I&O Subjective Urine output improved on Bumex drip vital signs Vital Sign Date Time Temp Pulse Resp B/P (MAP) Pulse Ox O2 Delivery O2 Flow Rate FiO2 03/16/24 16:05 105 18 82/53 (63 100 30 03/16/24 14:00 Mechanical Ventilator+ 03/16/24 14:00 96.4 205.5 Total Intake and Output 03/15/24 03/15/24 03/16/24 15:00 23:00 07:00 Intake Total 590.080 ml 541.455 ml 668.080 ml Output Total 700 ml 1200 ml Balance 590.080 ml -158.545 ml -531.920 ml medications Current Medications Medications Dose Ordered Sig/Hunter Route Start Time Stop Time Status Last Admin Dose Admin Pantoprazole Sodium 40 mg DAILY IV 03/12/24 10:00 03/16/24 11:35 40 MG Morphine Sulfate 2 mg Q4HP PRN IV 03/11/24 16:30 Ipratropium [place] 0.5 mg Q4HR NEB 03/11/24 18:00 03/16/24 14:22 0.5 MG Enoxaparin Sodium 30 mg DAILY SC 03/12/24 10:00 03/16/24 11:35 30 MG Vancomycin HCl 0 ml @ 0 mls/hr UD IV 03/11/24 16:30 Enteral Nutritional Formula 1,000 ml 40ML/HR GT 03/11/24 16:30 03/14/24 17:14 1,000 ML Propofol 100 ml @ 1.635 mls/ hr Q24H IV 03/12/24 05:30 03/16/24 01:37 1.635 MLS/HR Diagnostic Test (Pha) 1 strip ACHS 03/12/24 11:30 03/16/24 11:30 1 STRIP Insulin Human Regular ACHS SC 03/12/24 11:30 03/14/24 07:48 2 UNITS Dextrose 50 ml UD PRN IV 03/12/24 08:30 Lactulose 30 ml BID PO 03/13/24 22:00 03/15/24 08:54 30 ML Norepinephrine Bitartrate 250 ml @ 1.875 mls/ hr Q24H IV 03/14/24 12:30 03/14/24 12:38 5.625 MLS/HR Ampicillin Sodium/ Sulbactam Sodium 3 gm/Sodium Chloride 100 ml @ 100 mls/hr Q6H IV 03/14/24 14:00 03/16/24 14:39 100 MLS/HR Fentanyl Citrate 250 ml @ 2.5 mls/hr Q24H IV 03/15/24 11:00 03/16/24 01:48 7.5 MLS/HR Bumetanide 12.5 mg/Miscellaneous 50 ml @ 2 mls/hr Q24H IV 03/15/24 13:00 03/16/24 02:57 2 MLS/HR objective Gen: nad, intubated and sedated heent: nc/at, lungs: Coarse breath sounds cvs: no rub laboratory and microbiology Laboratory Tests 03/16/24 02:47 Test 03/16/24 02:47 Range/Units Serum Glucose 95 74-106 mg/dL Assessment/Plan Acute kidney injury hemodynamically mediated concerning for ATN . FENA 2% + vancotoxicity Significant hypotension noted Septic shock due to multiple sources including decubitus ulcer as well as urinary tract infection Protein calorie malnutrition Pneumonia multi lobar s/p bronchoscopy shows mucous plug - we will continue with Bumex drip achieving closer to even fluid balance however still remains positive - mild hyponatremia, will continue to follow Dietary Evaluation Review Comments: 1) Consider Glucerna 1.2 @ 45ml/hr x 24hr goal rate as tolerated 2) If pt remains NPO initiate TPN within 2-3 days of NPO status as pt is underweight. 3) Advance pt diet when medically feasible to a [facility] 60g diet modified per WHEEL BORER recommendations. 4) Consider PARADISE 1 pkt BIDWM for wound 5) Continue current plan of care Expected Outcomes/Goals: 1) Pt to receive nutrition support within 2-3 days of NPO status. 2) Pt diet to advance 3) F/U in 2-3 days Plan discussed with: WALLY Maddox MD Mar 16, 2024 16:45
--- NOTE | 2024-03-16 17:01 | DVHPN2 ---
Progress Note - Dictate Date Seen: Mar 16, 2024 Medical Necessity Reason Pt with a Central, PICC or Fol: Yes The following are medically ne: Central Line, Sharpe Catheter Reason for sharpe catheter: Strict I&O Subjective Patient is intubated and sedated on Fentanyl and Diprivan. Positive cough and gag noted,pupils are reactive and sluggish. Sharpe draining yellow urine to gravity. 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 Dressing change completed per wound care orders. B/L heals offloaded on pillows for comfort. Culture History: 03/11, Sputum culture preliminary showed Normal Oropharyngeal Eugenia 03/11, Blood culture showed Staph hominis subsp homins. Repeat blood culture showed no growth after 72 hours of intubation. 1203, Urine culture showed Klebsiella pneumoniae >100,000 CFU/ML and Enterococcus faecalis >100,000 CFU/ML 03/11, Wound culture showed Escherichia coli and Enterococcus faecalis 03/12, MRSA screening: Negative Review of imaging shows: 03/16, Chest radiograph: Endotracheal tube in good position. Bibasilar opacities may reflect mild pneumonia. Aeration is stable to minimally improved since March 14, 2024. 03/15, Chest x-ray: Endotracheal tube in good position. Bibasilar opacities may reflect mild pneumonia. Aeration is stable to minimally improved since March 14, 2024. 03/11, Head CT: No evidence of acute intracranial hemorrhage or mass effect. Mild ventriculomegaly. Mild hydrocephalus is not excluded. vital signs Vital Sign Date Time Temp Pulse Resp B/P (MAP) Pulse Ox O2 Delivery O2 Flow Rate FiO2 03/16/24 16:05 105 18 82/53 (63) 100 30 03/16/24 14:00 Mechanical Ventilator+ 03/16/24 14:00 96.4 205.5 Total Intake and Output 03/15/24 03/15/24 03/16/24 15:00 23:00 07:00 Intake Total 590.080 ml 541.455 ml 668.080 ml Output Total 700 ml 1200 ml Balance 590.080 ml -158.545 ml -531.920 ml medications Current Medications Medications Dose Ordered Sig/[place]unter Route Start Time Stop Time Status Last Admin Dose Admin Pantoprazole Sodium 40 mg DAILY IV 03/12/24 10:00 03/16/24 11:35 40 MG Morphine Sulfate 2 mg Q4HP PRN IV 03/11/24 16:30 Ipratropium [place] 0.5 mg Q4HR NEB 03/11/24 18:00 03/16/24 14:22 0.5 MG Enoxaparin Sodium 30 mg DAILY SC 03/12/24 10:00 03/16/24 11:35 30 MG Vancomycin HCl 0 ml @ 0 mls/hr UD IV 03/11/24 16:30 Enteral Nutritional Formula 1,000 ml 40ML/HR GT 03/11/24 16:30 03/14/24 17:14 1,000 ML Propofol 100 ml @ 1.635 mls/ hr Q24H IV 03/12/24 05:30 03/16/24 01:37 1.635 MLS/HR Diagnostic Test (Pha) 1 strip ACHS 03/12/24 11:30 03/16/24 11:30 1 STRIP Insulin Human Regular ACHS SC 03/12/24 11:30 03/14/24 07:48 2 UNITS Dextrose 50 ml UD PRN IV 03/12/24 08:30 Lactulose 30 ml BID PO 03/13/24 22:00 03/15/24 08:54 30 ML Norepinephrine Bitartrate 250 ml @ 1.875 mls/ hr Q24H IV 03/14/24 12:30 03/14/24 12:38 5.625 MLS/HR Ampicillin Sodium/ Sulbactam Sodium 3 gm/Sodium Chloride 100 ml @ 100 mls/hr Q6H IV 03/14/24 14:00 03/16/24 14:39 100 MLS/HR Fentanyl Citrate 250 ml @ 2.5 mls/hr Q24H IV 03/15/24 11:00 03/16/24 01:48 7.5 MLS/HR Bumetanide 12.5 mg/Miscellaneous 50 ml @ 2 mls/hr Q24H IV 03/15/24 13:00 03/16/24 02:57 2 MLS/HR objective General: Patient lying in bed in medical ICU. Sedated, intubated on mechanical ventilator. Head: Normocephalic, atraumatic. Eyes: PERRLA. Ears: Normal external anatomy. Throat: Endotracheal tube and orogastric tube in place. Neck: Supple, trachea midline. Chest: Transmitted breath sounds bilaterally. Decreased air entry bilaterally. No wheezing. Bibasilar crackles. Cardiovascular: Positive S1, positive S2. Regular rate and rhythm. Abdomen: Positive bowel sounds in all 4 quadrants. Soft, nontender, nondistended. : Sharpe in place. Normal external genitalia. Rectal: Deferred. Skin: Warm, dry. Intact. Extremities: 2+ radial pulses bilaterally. No lower extremity edema. Neuro: Sedated. laboratory and microbiology Laboratory Tests 03/16/24 02:47 Test 03/16/24 02:47 Range/Units Serum Glucose 95 74-106 mg/dL Assessment/Plan Patient is a 83-year-old male presents to the hospital with: Septic shock leucocytosis Ecoli/ klebsiella infection Staphylococcus hominis bacteremia concern for metastatic disease: ALOC acute hypoxic respiratory failure UTI [place] Recommendations blood culture is likely contamination, repeat two sets are no growth Currently on Vancomycin, trough is high, hold the dose and repeat levels, 03/15 Random trough 22.9 ( dose on hold) cont IV Unasyn : both GN are sensitive pressors stable concern for underlying malignancy. Patient has never seen doctor prognosis guarded critical time greater than 35 minutes spent in management Dietary Evaluation Review Comments: 1) Consider Glucerna 1.2 @ 45ml/hr x 24hr goal rate as tolerated 2) If pt remains NPO initiate TPN within 2-3 days of NPO status as pt is underweight. 3) Advance pt diet when medically feasible to a CCHO 60g diet modified per BARIATRIC NURSE recommendations. 4) Consider PARADISE 1 pkt BIDWM for wound 5) Continue current plan of care Expected Outcomes/Goals: 1) Pt to receive nutrition support within 2-3 days of NPO status. 2) Pt diet to advance 3) F/U in 2-3 days Plan discussed with: DELMY Christine MD Mar 16, 2024 17:01
--- NOTE | 2024-03-16 20:03 | DVHPN2 ---
Progress Note - Dictate Date Seen: Mar 16, 2024 Medical Necessity Reason Pt with a Central, PICC or Fol: Yes The following are medically ne: Central Line, Sharpe Catheter Reason for sharpe catheter: Strict I&O Subjective Patient seen and examined at bedside. Sedated, intubated on mechanical ventilator. Overnight events reviewed. vital signs Vital Sign Date Time Temp Pulse Resp B/P (MAP) Pulse Ox O2 Delivery O2 Flow Rate FiO2 03/16/24 19:45 77/55 03/16/24 19:15 97.0 103 19 100 206.6 03/16/24 18:11 Mechanical Ventilator 03/16/24 18:11 30 Total Intake and Output 03/15/24 03/15/24 03/16/24 15:00 23:00 07:00 Intake Total 590.080 ml 541.455 ml 668.080 ml Output Total 700 ml 1200 ml Balance 590.080 ml -158.545 ml -531.920 ml medications Current Medications Medications Dose Ordered Sig/Hunter Route Start Time Stop Time Status Last Admin Dose Admin Pantoprazole Sodium 40 mg DAILY IV 03/12/24 10:00 03/16/24 11:35 40 MG Morphine Sulfate 2 mg Q4HP PRN IV 03/11/24 16:30 Ipratropium [place] 0.5 mg Q4HR NEB 03/11/24 18:00 03/16/24 18:10 0.5 MG Enoxaparin Sodium 30 mg DAILY SC 03/12/24 10:00 03/16/24 11:35 30 MG Vancomycin HCl 0 ml @ 0 mls/hr UD IV 03/11/24 16:30 Enteral Nutritional Formula 1,000 ml 40ML/HR GT 03/11/24 16:30 03/14/24 17:14 1,000 ML Propofol 100 ml @ 1.635 mls/ hr Q24H IV 03/12/24 05:30 03/16/24 01:37 1.635 MLS/HR Diagnostic Test (Pha) 1 strip ACHS 03/12/24 11:30 03/16/24 17:00 1 STRIP Insulin Human Regular ACHS SC 03/12/24 11:30 03/14/24 07:48 2 UNITS Dextrose 50 ml UD PRN IV 03/12/24 08:30 Lactulose 30 ml BID PO 03/13/24 22:00 12/7/24 08:54 30 ML Norepinephrine Bitartrate 250 ml @ 1.875 mls/ hr Q24H IV 03/14/24 12:30 03/14/24 12:38 5.625 MLS/HR Ampicillin Sodium/ Sulbactam Sodium 3 gm/Sodium Chloride 100 ml @ 100 mls/hr Q6H IV 03/14/24 14:00 03/16/24 14:39 100 MLS/HR Fentanyl Citrate 250 ml @ 2.5 mls/hr Q24H IV 03/15/24 11:00 03/16/24 01:48 7.5 MLS/HR Bumetanide 12.5 mg/Miscellaneous 50 ml @ 2 mls/hr Q24H IV 03/15/24 13:00 03/16/24 02:57 2 MLS/HR objective Gen.: Patient lying in bed in medical ICU. Sedated, intubated on mechanical ventilator. Head: Normocephalic, atraumatic. Eyes: PERRLA. Ears: Normal external anatomy. Throat: Endotracheal tube and orogastric tube in place. Neck: Supple, trachea midline. Chest: Transmitted breath sounds bilaterally. Decreased air entry bilaterally. No wheezing. Bibasilar crackles. Cardiovascular: Positive S1, positive S2. Regular rate and rhythm. Abdomen: Positive bowel sounds in all 4 quadrants. Soft, nontender, nondistended. : Sharpe in place. Normal external genitalia. Rectal: Deferred. Skin: Warm, dry. Intact. Extremities: 2+ radial pulses bilaterally. No lower extremity edema. Neuro: Sedated. 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 Metabolic acidosis w/ respiratory compensation. CXR demonstrates bibasilar opacities, devices in place. Sedated on Propofol, Fentanyl WBC elevated at 24.6 K Continue antibiotics Blood cultures show no growth x 24 hours. Hemoglobin stable, 10.4 g/dL. Platelets trending down, 98 k. On pressors for hemodynamic support Levophed 2 mcg/min Titrate to keep mean arterial pressure greater than 65 mmHg. Tube feeds for nutritional support. IV fluid hydration at 100 ml/hr. Albumin Continue Bumex for diuresis Monitor renal function Monitor electrolytes. Supplement as necessary. Monitor UOP. Labs and imaging reviewed. Rest of plan as noted below. Plan: s/p intubation on mechanical ventilator. ABG reviewed, compensated. On AC mode; RR 18/VT 500/PEEP 5/FiO2 30%. Titrate FIO2 to keep O2 saturation above 90%. VAP bundle. Daily ABG and CXR while intubated Sedate for ventilator synchrony On pressors for hemodynamic support Titrate to keep mean arterial pressure greater than 65 mmHg. Obtain consent for bronchoscopy and arterial line placement. Antibiotics F/u cultures - Blood cultures show no growth x24 hours Tube feeds for nutritional support Monitor renal function Monitor electrolytes. Supplement as necessary. Monitor ins and outs. Maintain euvolemia Wound care Accu-Cheks, ISS. Lactic acid trending down. 500 mL bolus of IV fluids with LR at 100 ml/hr. GI prophylaxis with Protonix IV DVT prophylaxis with Lovenox Prognosis: Poor given patient's multiple co-morbidities. Condition: Critical Rest of plan per hospitalist and other consultants. A total of 35 minutes of critical care time was spent reviewing the patient record, examining the patient, making a diagnostic and therapeutic plan, discussing this plan with the medical personnel, following up on diagnostic studies and following the patient for clinical stability excluding any and all procedures. At least 50% of this time was spent in direct, [id number] contact. Thank you Dr. Graham Espitia MD, for allowing me to participate in this patient's care. Further recommendations will depend on the patient's clinical course. Please do not hesitate to contact me if you have any questions or concerns. This medical document was created using an electronic medical record system with [employer]ation system. Although these documentations are being carefully reviewed, there may still be some phonetic and typographical changes. The errors are purely typographical, due to imperfection on the software program, and do not reflect any compromise in the patient's medical care. Dietary Evaluation Review Comments: 1) Consider Glucerna 1.2 @ 45ml/hr x 24hr goal rate as tolerated 2) If pt remains NPO initiate TPN within 2-3 days of NPO status as pt is underweight. 3) Advance pt diet when medically feasible to a CCHO 60g diet modified per MAKING MACHINE OPERATOR recommendations. 4) Consider [place] 1 pkt BIDWM for wound 5) Continue current plan of care Expected Outcomes/Goals: 1) Pt to receive nutrition support within 2-3 days of NPO status. 2) Pt diet to advance 3) F/U in 2-3 days Plan discussed with: Other (RN Ty) Critical Care Time(min): 35 GERRY FERRO MD Mar 16, 2024 20:03
[2024-03-16] MEDS: BUMETANIDE INJECTION 20 ML ONE (21:21)
[2024-03-16] MEDS: BUMETANIDE ONE (21:24)
[2024-03-17] VITALS (105 sets, daily range): BP systolic 81–159; BP diastolic 49–104; PULSE 88–120; RESP 14–33; TEMP 97.2–99; O2SAT 99–100
[2024-03-17 04:33] LABS: Hematocrit 32.6 % (41.0-53.0); Hemoglobin 10.7 g/dL (13.5-17.5); Mean Corpuscular Hemoglobin 27.6 pg (28.0-32.0); Mean Corpuscular Hgb Conc. 32.8 g/dL (32.0-36.0); Mean Corpuscular Volume 84.2 fL (80.0-100.0); Platelet Count (auto) 102 10^3/uL (140-450); Red Blood Cells 3.88 10^6/uL (4.5-5.90); Red Cell Distribution Width 17.1 % (11.8-14.3); White Blood Cell 29.5 10^3/uL (4.4-10.8)
[2024-03-17 04:52] LABS: Basophils % (manual) 0 (0.0-2.0); Blast Cells 0; Metamyelocytes % 0; Myelocytes % 0; Promyelocytes % 0; Reactive Lymphocytes 0
--- NOTE | 2024-03-17 04:52 | DVH ---
CHEST RADIOGRAPH Indication: INTUBATED Technique: Single frontal view of the chest was obtained COMPARISON: XY CHEST PORTABLE on DOS: 03/16/24, XY CHEST PORTABLE on DOS: 03/15/24, XY CHEST PORTABLE o n DOS: 03/14/24, XY CHEST PORTABLE on DOS: 03/14/24 FINDINGS: Lines and Tubes: Endotracheal tube, enteric catheter and left central venous catheter in satisfactory position. Lungs: Multifocal airspace disease. Pleura: No effusion. No pneumothorax. Cardiomediastinal contours: Unremarkable Bones: Unremarkable IMPRESSION: Lines and tubes in satisfactory position. No significant interval change.
[2024-03-17 05:04] LABS: Anion Gap 18 (5-15); BUN/Creatinine Ratio 28.1 (10.0-20.0); Carbon Dioxide 20 mmol/L (20-31); Glucose 97 mg/dL (74-106); Potassium 3.8 mmol/L (3.5-5.1)
[2024-03-17 05:05] LABS: Bilirubin, Total 0.3 mg/dL (0.2-1.0)
[2024-03-17 05:06] LABS: Alanine Aminotransferase < 9 U/L (7-40); Albumin 2.4 g/dL (3.2-4.8); Alkaline Phosphatase 119 U/L (46-116); Aspartate Aminotransferase 9 U/L (13-40); Blood Urea Nitrogen 52 mg/dL (9-23); Calcium 8.5 mg/dL (8.7-10.4); Chloride 110 mmol/L (98-107); Sodium 148 mmol/L (136-145); Total Protein 5.4 g/dL (5.7-8.2)
[2024-03-17 06:45] LABS: Band Neutrophils % (manual) 1; Eosinophils % (manual) 1 (0-7); Lymphocytes % (manual) 6 (10.0-50.0); Monocytes % (manual) 3 (0-12)
[2024-03-17 06:46] LABS: Platelet Estimate Decreased
[2024-03-17 09:09] LABS: Base Excess -4.1 mmol/L (-2.0-3.0)
--- NOTE | 2024-03-17 10:58 | DVHPN2 ---
Subjective Intubated and sedated FiO2 30% PEEP is 5 Still on Levophed Changes from previous H/P or p: Changes Objective Vitals Vital Signs Date Time Temp Pulse Resp B/P (MAP) Pulse Ox O2 Delivery O2 Flow Rate FiO2 03/17/24 10:15 100 22 122/71 (88) 100 30 03/17/24 08:00 Mechanical Ventilator+ 03/17/24 06:45 98.4 209.1 Intake/Output Intake and Output 03/17/24 07:00 Intake Total 1118.345 ml Output Total 680 ml Balance 438.345 ml Intake Oral 0 ml IV Total 689.345 ml Tube Feeding 429 ml Output Urine Total 680 ml # Bowel Movements 1 General Appearance: Other (Intubated and sedated) Lungs: Other (Bilateral rhonchi) Cardiovascular: Regular rate, Normal S1, Normal S2 Abdomen: Normal bowel sounds, Soft, No tenderness Extremities: No edema Medications Current Medications Medications Dose Ordered Sig/[place]unter Route Start Time Stop Time Status Last Admin Dose Admin Pantoprazole Sodium 40 mg DAILY IV 03/12/24 10:00 03/17/24 10:11 40 MG Morphine Sulfate 2 mg Q4HP PRN IV 03/11/24 16:30 Ipratropium [place] 0.5 mg Q4HR NEB 03/11/24 18:00 03/17/24 10:13 0.5 MG Enoxaparin Sodium 30 mg DAILY SC 03/12/24 10:00 03/16/24 11:35 30 MG Vancomycin HCl 0 ml @ 0 mls/hr UD IV 03/11/24 16:30 Enteral Nutritional Formula 1,000 ml 40ML/HR GT 03/11/24 16:30 03/14/24 17:14 1,000 ML Propofol 100 ml @ 1.635 mls/ hr Q24H IV 03/12/24 05:30 03/17/24 06:19 1.635 MLS/HR Diagnostic Test (Pha) 1 strip ACHS 03/12/24 11:30 03/17/24 06:59 1 STRIP Insulin Human Regular ACHS SC 03/12/24 11:30 03/14/24 07:48 2 UNITS Dextrose 50 ml UD PRN IV 03/12/24 08:30 Lactulose 30 ml BID PO 03/13/24 22:00 03/15/24 08:54 30 ML Norepinephrine Bitartrate 250 ml @ 1.875 mls/ hr Q24H IV 03/14/24 12:30 03/16/24 21:19 9.375 MLS/HR Ampicillin Sodium/ Sulbactam Sodium 3 gm/Sodium Chloride 100 ml @ 100 mls/hr Q6H IV 03/14/24 14:00 03/17/24 08:09 100 MLS/HR Fentanyl Citrate 250 ml @ 2.5 mls/hr Q24H IV 03/15/24 11:00 03/17/24 06:52 7.5 MLS/HR Bumetanide 12.5 mg/Miscellaneous 50 ml @ 2 mls/hr Q24H IV 03/15/24 13:00 03/16/24 21:50 2 MLS/HR Laboratory Results Laboratory Tests 03/17/24 03:33 Chemistry Test 03/17/24 03:33 Albumin 2.4 g/dL (3.2-4.8) L Calcium Level 8.5 mg/dL (8.7-10.4) L Total Protein 5.4 g/dL (5.7-8.2) L LFT Test 03/17/24 03:33 Alanine Aminotransferase (ALT) < 9 U/L (7-40) Alkaline Phosphatase 119 U/L (46-116) H Aspartate Amino Transferase (AST) 9 U/L (13-40) L Total Bilirubin 0.3 mg/dL (0.2-1.0) Urinalysis Test 03/11/24 04:00 03/12/24 15:25 Urine Color Yellow (Yellow) Urine Clarity Turbid (Clear) H Urine pH 6.0 (5.0-9.0) Urine Specific [place] 1.016 (1.001-1.035) Urine Protein 1+ (Negative) H Urine Ketones Negative (Negative) Urine Blood 1+ /uL (Negative) H Urine Nitrite Negative (Negative) Urine Bilirubin Negative (Negative) Urine Urobilinogen 2 mg/dL (Negative) H Urine Leukocyte Esterase 3+ /uL (Negative) Urine RBC 24 /hpf (0 - 3) Urine WBC 280 /hpf (0 - 3) Urine Squamous Epithelial Cells Few /hpf (<5) Urine Bacteria Many /hpf (None Seen) H Urine Mucus Few (None Seen) Urine Glucose Normal mg/dL (Normal) Urine Creatinine 27.92 mg/dL (30.0-125.0) L Urine Sodium 82 mmol/L (40-220) Blood Gas Results Test 03/17/24 08:10 Arterial Blood pH 7.383 (7.350-7.450) FiO2 % 30.0 Microbiology Microbiology Date/Time Source Procedure Growth Status 03/14/24 19:34 Blood Blood Culture - Preliminary NO GROWTH AFTER 48 HOURS OF INCUBATION. Resulted 03/12/24 18:05 Nose MRSA Screen - Final Complete 03/11/24 04:00 Urine - [place] Urine Culture - Final Klebsiella pneumoniae Enterococcus faecalis Complete 03/11/24 03:20 Sputum Endotracheal Wash Gram Stain - Final Complete 03/11/24 03:20 Respiratory Culture - Final Presumptive Jainya albicans Complete Assessment/Plan Assessment/Plan Acute hypoxic respiratory failure Sepsis with septic shock UTI Multi lobar pneumonia Hypernatremia Hypoxemia Bed ridden x 2 years Large AAA 5.9 cm Constipation Diffuse mixed lytic osseous lesions suspicious for metastatic disease Bacteremia Gram-positive cocci in clusters Plan Admit to ICU Mechanical ventilation Broad-spectrum antibiotics Zosyn and vancomycin Sedation as needed: Discontinue Versed and start fentanyl drip, add propofol if needed DVT prophylaxis with Lovenox GI prophylaxis with Protonix IV Echo Get urine culture and blood culture and sputum culture Norepinephrine p.r.n. for blood pressure support Pulmonary consult Start tube feeding Discussed with his son over the phone Full code 03/12/2024: Hypokalemia and hypomagnesemia: Replace potassium and magnesium Sedation: Fentanyl and propofol as needed, titrate to RASS -3 Decreased urine output: Give bolus 500 mL, start feeding Broad-spectrum antibiotics: Vancomycin and Zosyn DVT prophylaxis: Lovenox GI prophylaxis: Protonix Full code Discussed with the son over the phone yesterday, full code for now 03/13/2024: Septic shock: Continue vasopressors as needed Possible acute tubular necrosis: Diuresis with Lasix and Bumex per Nephrology, add albumin IV Sepsis due to pneumonia and UTI: Continue Zosyn IV Sedation as needed with fentanyl and propofol Pulmonary consultation is on DVT prophylaxis with Lovenox GI prophylaxis with Protonix Full code Discussed with the his son over the phone again now, he said to try everything, full code, questions answered 03/14/24: Septic shock: Levophed Sepsis: IV antibiotics Anemia: Transfuse RBCs [place]: Hemodynamically mediated Hypotension: IV fluids Protein calorie malnutrition Pneumonia UTI Continue Support Full code 03/15/24: Edema: Bumex 1 mg IV x1, discuss with nephrology Sepsis, PNA, UTI: Unasyn and Vanco [place] / Hypernatremia: DC IV fluids for now, Nephrology consult, Anemia: Received 2 units RBCs yesterday Malnutrition Taper Levophed as tolerated Sedation as needed Tube feeding Fluid overload?: DC IV fluids, discuss with nephrology 03/17/24: Continue IV antibiotics: Vancomycin and Unasyn C-PAP per Dr. Tay Taper sedation Bumex drip Taper Levophed drip slowly down as tolerated Discussed with the son over phone, explained the poor prognosis, explained the findings of possible metastatic disease in his bones, He will discuss the patient's condition with his family and get back to us by tomorrow Plan discussed with: Other Date of Service: Mar 17, 2024 Billing Provider: ALBERTO FREEMAN MD Common Visit Codes: NOT BILLABLE ALBERTO FREEMAN MD Mar 17, 2024 10:58
--- NOTE | 2024-03-17 15:14 | DVHPN2 ---
Progress Note Date Seen: Mar 17, 2024 Medical Necessity Reason Pt with a Central, PICC or Fol: Yes The following are medically ne: Central Line, Sharpe Catheter Reason for sharpe catheter: Strict I&O Subjective Patient reports: Other (intubated) Review of Systems: Deferred Objective vital signs Vital Sign Date Time Temp Pulse Resp B/P (MAP) Pulse Ox O2 Delivery O2 Flow Rate FiO2 03/17/24 14:00 97.9 103 22 120/83 (95) 100 208.2 129/74 (92) 03/17/24 13:21 30 03/17/24 12:15 Mechanical Ventilator+ Total Intake and Output 03/16/24 03/16/24 03/17/24 15:00 23:00 07:00 Intake Total 191.070 ml 241.580 ml 685.695 ml Output Total 30 ml 650 ml Balance 191.070 ml 211.580 ml 35.695 ml medications Current Medications Medications Dose Ordered Sig/[place] Route Start Time Stop Time Status Last Admin Dose Admin Pantoprazole Sodium 40 mg DAILY IV 03/12/24 10:00 03/17/24 10:11 40 MG Morphine Sulfate 2 mg Q4HP PRN IV 03/11/24 16:30 Ipratropium [place] 0.5 mg Q4HR NEB 03/11/24 18:00 03/17/24 10:13 0.5 MG Enoxaparin Sodium 30 mg DAILY SC 03/12/24 10:00 03/16/24 11:35 30 MG Vancomycin HCl 0 ml @ 0 mls/hr UD IV 03/11/24 16:30 Enteral Nutritional Formula 1,000 ml 40ML/HR GT 03/11/24 16:30 03/14/24 17:14 1,000 ML Propofol 100 ml @ 1.635 mls/ hr Q24H IV 03/12/24 05:30 03/17/24 06:19 1.635 MLS/HR Diagnostic Test (Pha) 1 strip ACHS 03/12/24 11:30 03/17/24 11:15 1 STRIP Insulin Human Regular ACHS SC 03/12/24 11:30 03/14/24 07:48 2 UNITS Dextrose 50 ml UD PRN IV 03/12/24 08:30 Lactulose 30 ml BID PO 03/13/24 22:00 03/15/24 08:54 30 ML Norepinephrine Bitartrate 250 ml @ 1.875 mls/ hr Q24H IV 03/14/24 12:30 03/16/24 21:19 9.375 MLS/HR Ampicillin Sodium/ Sulbactam Sodium 3 gm/Sodium Chloride 100 ml @ 100 mls/hr Q6H IV 03/14/24 14:00 03/17/24 14:19 100 MLS/HR Fentanyl Citrate 250 ml @ 2.5 mls/hr Q24H IV 03/15/24 11:00 03/17/24 06:52 7.5 MLS/HR Bumetanide 12.5 mg/Miscellaneous 50 ml @ 2 mls/hr Q24H IV 03/15/24 13:00 03/16/24 21:50 2 MLS/HR Examination: GENERAL:Abnormal, MSK:Abnormal, NEURO:Abnormal laboratory and microbiology Laboratory Tests 03/17/24 03:33 Test 03/17/24 03:33 Range/Units Serum Glucose 97 74-106 mg/dL Microbiology Date/Time Source Procedure Growth Status 03/14/24 19:34 Blood Blood Culture - Preliminary NO GROWTH AFTER 48 HOURS OF INCUBATION. Resulted 03/12/24 18:05 Nose MRSA Screen - Final Complete 03/11/24 04:00 Urine - [place] Urine Culture - Final Klebsiella pneumoniae Enterococcus faecalis Complete 03/11/24 03:20 Sputum Endotracheal Wash Gram Stain - Final Complete 03/11/24 03:20 Respiratory Culture - Final Presumptive Janiya albicans Complete Problem List/Assessment/Plan Problem List/Assessment/Plan Acute kidney injury possibly ischemic ATN . FENA 2% + vancotoxicity Significant hypotension noted Septic shock due to multiple sources including decubitus ulcer as well as urinary tract infection Protein calorie malnutrition Pneumonia multi lobar s/p bronchoscopy shows mucous plug recs on bumex drip levophed Plan discussed with: Other Dietary Evaluation Review Comments: 1) Consider Glucerna 1.2 @ 45ml/hr x 24hr goal rate as tolerated 2) If pt remains NPO initiate TPN within 2-3 days of NPO status as pt is underweight. 3) Advance pt diet when medically feasible to a CCHO 60g diet modified per BID WRITER recommendations. 4) Consider [place]ISE 1 pkt BIDWM for wound 5) Continue current plan of care Expected Outcomes/Goals: 1) Pt to receive nutrition support within 2-3 days of NPO status. 2) Pt diet to advance 3) F/U in 2-3 days SONAL MENDEZ MD Mar 17, 2024 15:14
--- NOTE | 2024-03-17 15:56 | DVHPN2 ---
Progress Note - Dictate Date Seen: Mar 17, 2024 Medical Necessity Reason Pt with a Central, PICC or Fol: Yes The following are medically ne: Central Line, Sharpe Catheter Reason for sharpe catheter: Strict I&O Subjective Patient is Intubated and sedated. FiO2 30% worse on pressors ( requiring more) called Mio Byers at [phone]: discussed about current situation and worsening despite adequate antibiotics. He reports he will discuss with his family later today about goals of care Culture History: 03/11, Sputum culture preliminary showed Normal Oropharyngeal Eugenia 03/11, Blood culture showed Staph hominis subsp homins. Repeat blood culture showed no growth after 72 hours of intubation. 1203, Urine culture showed Klebsiella pneumoniae >100,000 CFU/ML and E nterococcus faecalis >100,000 CFU/ML 03/11, Wound culture showed Escherichia coli and Enterococcus faecalis 03/12, MRSA screening: Negative Review of imaging shows: 03/15, Chest x-ray: Endotracheal tube in good position. Bibasilar opacities may reflect mild pneumonia. Aeration is stable to minimally improved since March 14, 2024. 03/11, Head CT: No evidence of acute intracranial hemorrhage or mass effect. Mild ventriculomegaly. Mild hydrocephalus is not excluded. vital signs Vital Sign Date Time Temp Pulse Resp B/P (MAP) Pulse Ox O2 Delivery O2 Flow Rate FiO2 03/17/24 14:50 111 25 125/86 (99) 100 30 03/17/24 14:00 97.9 208.2 03/17/24 12:15 Mechanical Ventilator+ Total Intake and Output 03/16/24 03/16/24 03/17/24 15:00 23:00 07:00 Intake Total 191.070 ml 241.580 ml 685.695 ml Output Total 30 ml 650 ml Balance 191.070 ml 211.580 ml 35.695 ml medications Current Medications Medications Dose Ordered Sig/[place] Route Start Time Stop Time Status Last Admin Dose Admin Pantoprazole Sodium 40 mg DAILY IV 03/12/24 10:00 03/17/24 10:11 40 MG Morphine Sulfate 2 mg Q4HP PRN IV 03/11/24 16:30 Ipratropium [place] 0.5 mg Q4HR NEB 03/11/24 18:00 03/17/24 15:30 0.5 MG Enoxaparin Sodium 30 mg DAILY SC 03/12/24 10:00 03/16/24 11:35 30 MG Vancomycin HCl 0 ml @ 0 mls/hr UD IV 03/11/24 16:30 Enteral Nutritional Formula 1,000 ml 40ML/HR GT 03/11/24 16:30 03/14/24 17:14 1,000 ML Propofol 100 ml @ 1.635 mls/ hr Q24H IV 03/12/24 05:30 03/17/24 06:19 1.635 MLS/HR Diagnostic Test (Pha) 1 strip ACHS 03/12/24 11:30 03/17/24 11:15 1 STRIP Insulin Human Regular ACHS SC 03/12/24 11:30 03/14/24 07:48 2 UNITS Dextrose 50 ml UD PRN IV 03/12/24 08:30 Lactulose 30 ml BID PO 03/13/24 22:00 03/15/24 08:54 30 ML Norepinephrine Bitartrate 250 ml @ 1.875 mls/ hr Q24H IV 03/14/24 12:30 03/16/24 21:19 9.375 MLS/HR Ampicillin Sodium/ Sulbactam Sodium 3 gm/Sodium Chloride 100 ml @ 100 mls/hr Q6H IV 03/14/24 14:00 03/17/24 14:19 100 MLS/HR Fentanyl Citrate 250 ml @ 2.5 mls/hr Q24H IV 03/15/24 11:00 03/17/24 06:52 7.5 MLS/HR Bumetanide 12.5 mg/Miscellaneous 50 ml @ 2 mls/hr Q24H IV 03/15/24 13:00 03/16/24 21:50 2 MLS/HR Fluconazole 100 ml @ 100 mls/hr DAILY IV 03/18/24 10:00 UNV objective General: Patient lying in bed in medical ICU. Sedated, intubated on mechanical ventilator. Head: Normocephalic, atraumatic. Eyes: PERRLA. Ears: Normal external anatomy. Throat: Endotracheal tube and orogastric tube in place. Neck: Supple, trachea midline. Chest: Transmitted breath sounds bilaterally. Decreased air entry bilaterally. No wheezing. Bibasilar crackles. Cardiovascular: Positive S1, positive S2. Regular rate and rhythm. Abdomen: Positive bowel sounds in all 4 quadrants. Soft, nontender, nondistended. : Sharpe in place. Normal external genitalia. Skin: Warm, dry. Intact. Extremities: 2+ radial pulses bilaterally. No lower extremity edema. Neuro: Sedated. laboratory and microbiology Laboratory Tests 03/17/24 03:33 Test 03/17/24 03:33 Range/Units Serum Glucose 97 74-106 mg/dL Assessment/Plan Patient is a 83-year-old male presents to the hospital with: Septic shock leucocytosis Ecoli/ klebsiella infection Staphylococcus hominis bacteremia concern for metastatic disease: ALOC acute hypoxic respiratory failure UTI [place] Recommendations blood culture is likely contamination, repeat two sets are no growth Currently on Vancomycin, trough is high, hold the dose and repeat levels, 03/15 Random trough 22.9 ( dose on hold) cont IV Unasyn : both GN are sensitive pressor requirement worsening consider stress dose steroids called Mio Byers ( son) at [phone]: discussed about current situation and worsening despite antibiotics. His kidneys are shutting down as well. will empirically add fluconazole for now son unaware of any h/o malignancy or any work up done He reports he will discuss with his family later today about goals of care and report back tomorrow prognosis is critical. critical time greater than 40 minutes spent in management Dietary Evaluation Review Comments: 1) Consider Glucerna 1.2 @ 45ml/hr x 24hr goal rate as tolerated 2) If pt remains NPO initiate TPN within 2-3 days of NPO status as pt is underweight. 3) Advance pt diet when medically feasible to a CCHO 60g diet modified per TRAIN INSPECTOR recommendations. 4) Consider [place] 1 pkt BIDWM for wound 5) Continue current plan of care Expected Outcomes/Goals: 1) Pt to receive nutrition support within 2-3 days of NPO status. 2) Pt diet to advance 3) F/U in 2-3 days Plan discussed with: Other DELMY STERLING MD Mar 17, 2024 15:56
--- NOTE | 2024-03-17 20:41 | DVHPN2 ---
Progress Note - Dictate Date Seen: Mar 17, 2024 Medical Necessity Reason Pt with a Central, PICC or Fol: Yes The following are medically ne: Central Line, Sharpe Catheter Reason for sharpe catheter: Strict I&O Subjective Patient seen and examined at bedside. Sedated, intubated on mechanical ventilator. Overnight events reviewed. vital signs Vital Sign Date Time Temp Pulse Resp B/P (MAP) Pulse Ox O2 Delivery O2 Flow Rate FiO2 03/17/24 20:00 113 18 132/75 (94) 100 30 03/17/24 18:49 Mechanical Ventilator 03/17/24 18:45 98.8 209.8 Total Intake and Output 03/16/24 03/16/24 03/17/24 15:00 23:00 07:00 Intake Total 191.070 ml 241.580 ml 685.695 ml Output Total 30 ml 650 ml Balance 191.070 ml 211.580 ml 35.695 ml medications Current Medications Medications Dose Ordered Sig/Hunter Route Start Time Stop Time Status Last Admin Dose Admin Pantoprazole Sodium 40 mg DAILY IV 03/12/24 10:00 03/17/24 10:11 40 MG Morphine Sulfate 2 mg Q4HP PRN IV 03/11/24 16:30 Ipratropium [place] 0.5 mg Q4HR NEB 03/11/24 18:00 03/17/24 18:49 0.5 MG Enoxaparin Sodium 30 mg DAILY SC 03/12/24 10:00 03/16/24 11:35 30 MG Vancomycin HCl 0 ml @ 0 mls/hr UD IV 03/11/24 16:30 Enteral Nutritional Formula 1,000 ml 40ML/HR GT 03/11/24 16:30 03/14/24 17:14 1,000 ML Propofol 100 ml @ 1.635 mls/ hr Q24H IV 03/12/24 05:30 03/17/24 06:19 1.635 MLS/HR Diagnostic Test (Pha) 1 strip ACHS 03/12/24 11:30 03/17/24 17:39 1 STRIP Insulin Human Regular ACHS SC 03/12/24 11:30 03/14/24 07:48 2 UNITS Dextrose 50 ml UD PRN IV 03/12/24 08:30 Lactulose 30 ml BID PO 03/13/24 22:00 03/15/24 08:54 30 ML Norepinephrine Bitartrate 250 ml @ 1.875 mls/ hr Q24H IV 03/14/24 12:30 03/16/24 21:19 9.375 MLS/HR Ampicillin Sodium/ Sulbactam Sodium 3 gm/Sodium Chloride 100 ml @ 100 mls/hr Q6H IV 03/14/24 14:00 03/17/24 19:49 100 MLS/HR Fentanyl Citrate 250 ml @ 2.5 mls/hr Q24H IV 03/15/24 11:00 03/17/24 06:52 7.5 MLS/HR Bumetanide 12.5 mg/Miscellaneous 50 ml @ 2 mls/hr Q24H IV 03/15/24 13:00 03/17/24 18:34 2 MLS/HR Fluconazole 100 ml @ 100 mls/hr DAILY IV 03/18/24 10:00 objective Gen.: Patient lying in bed in medical ICU. Sedated, intubated on mechanical ventilator. Head: Normocephalic, atraumatic. Eyes: PERRLA. Ears: Normal external anatomy. Throat: Endotracheal tube and orogastric tube in place. Neck: Supple, trachea midline. Chest: Transmitted breath sounds bilaterally. Decreased air entry bilaterally. No wheezing. Bibasilar crackles. Cardiovascular: Positive S1, positive S2. Regular rate and rhythm. Abdomen: Positive bowel sounds in all 4 quadrants. Soft, nontender, nondistended. : Sharpe in place. Normal external genitalia. Rectal: Deferred. Skin: Warm, dry. Intact. Extremities: 2+ radial pulses bilaterally. No lower extremity edema. Neuro: Sedated. 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 Tolerating x1 hour. ABG reviewed, compensated. Metabolic acidosis w/ respiratory compensation. CXR demonstrates multifocal airspace disease, devices in place. No effusion or pneumothorax. Sedated on Fentanyl 75 mcg/hr. Off Propofol. WBC elevated at 29.5 K Continue antibiotics Blood cultures show no growth x 72 hours. Hemoglobin stable, 10.7 g/dL. Platelets trending up, 102 k. On pressors for hemodynamic support Levophed 5 mcg/min Titrate to keep mean arterial pressure greater than 65 mmHg. Tube feeds for nutritional support. IV fluid hydration at 100 ml/hr. Albumin Continue Bumex for diuresis Monitor renal function Monitor electrolytes. Supplement as necessary. Monitor UOP. Labs and imaging reviewed. Rest of plan as noted below. Plan: s/p intubation on mechanical ventilator. ABG reviewed, compensated. On AC mode; RR 21/VT 500/PEEP 5/FiO2 30%. Titrate FIO2 to keep O2 saturation above 90%. VAP bundle. Daily ABG and CXR while intubated Sedate for ventilator synchrony On pressors for hemodynamic support Titrate to keep mean arterial pressure greater than 65 mmHg. Obtain consent for bronchoscopy and arterial line placement. Antibiotics F/u cultures - Blood cultures show no growth x24 hours Tube feeds for nutritional support Monitor renal function Monitor electrolytes. Supplement as necessary. Monitor ins and outs. Maintain euvolemia Wound care Accu-Cheks, ISS. Lactic acid trending down. 500 mL bolus of IV fluids with LR at 100 ml/hr. GI prophylaxis with Protonix IV DVT prophylaxis with Lovenox Prognosis: Poor given patient's multiple co-morbidities. Condition: Critical Rest of plan per hospitalist and other consultants. A total of 35 minutes of critical care time was spent reviewing the patient record, examining the patient, making a diagnostic and therapeutic plan, discussing this plan with the medical personnel, following up on diagnostic studies and following the patient for clinical stability excluding any and all procedures. At least 50% of this time was spent in direct, [id number] contact. Thank you Dr. Graham Espitia MD, for allowing me to participate in this patient's care. Further recommendations will depend on the patient's clinical course. Please do not hesitate to contact me if you have any questions or concerns. This medical document was created using an electronic medical record system with [employer] system. Although these documentations are being carefully reviewed, there may still be some phonetic and typographical changes. The errors are purely typographical, due to imperfection on the software program, and do not reflect any compromise in the patient's medical care. Dietary Evaluation Review Comments: 1) Consider Glucerna 1.2 @ 45ml/hr x 24hr goal rate as tolerated 2) If pt remains NPO initiate TPN within 2-3 days of NPO status as pt is underweight. 3) Advance pt diet when medically feasible to a CCHO 60g diet modified per [employer] recommendations. 4) Consider [place] 1 pkt BIDWM for wound 5) Continue current plan of care Expected Outcomes/Goals: 1) Pt to receive nutrition support within 2-3 days of NPO status. 2) Pt diet to advance 3) F/U in 2-3 days Plan discussed with: Other (IRENE Hutchinson) Critical Care Time(min): 35 GERRY FERRO MD Mar 17, 2024 20:41
[2024-03-18] VITALS (106 sets, daily range): BP systolic 84–165; BP diastolic 56–102; PULSE 103–121; RESP 16–29; TEMP 89.2–98.6; O2SAT 99–100
[2024-03-18 04:00] LABS: Basophils # (auto) 0 10 ^3/uL (0-0.2); Eosinophils # (auto) 0 10 ^3/uL (0-0.8); Hematocrit 31.9 % (41.0-53.0); Hemoglobin 10.2 g/dL (13.5-17.5); Lymphocytes % (auto) 4.4 % (10.0-50.0); Mean Corpuscular Volume 84.3 fL (80.0-100.0); Monocytes # (auto) 0.5 10 ^3/uL (0-1.3); Monocytes % (auto) 2.2 % (0.0-12.0); Neutrophils # (auto) 21.4 10 ^3/uL (1.6-8.6); Neutrophils % (auto) 93.4 % (37.0-80.0); Nucleated Red Blood Cells % 0.1 %; Platelet Count (auto) 102 10^3/uL (140-450); Red Blood Cells 3.78 10^6/uL (4.5-5.90); White Blood Cell 22.9 10^3/uL (4.4-10.8)
[2024-03-18 04:12] LABS: Alkaline Phosphatase 113 U/L (46-116); Anion Gap 19 (5-15); BUN/Creatinine Ratio 25.5 (10.0-20.0); Carbon Dioxide 21 mmol/L (20-31); Magnesium 1.9 mg/dL (1.6-2.6); Potassium 3.6 mmol/L (3.5-5.1)
[2024-03-18 04:13] LABS: Bilirubin, Total 0.3 mg/dL (0.2-1.0)
[2024-03-18 04:14] LABS: Chloride 111 mmol/L (98-107); Glucose 115 mg/dL (74-106); Sodium 151 mmol/L (136-145)
[2024-03-18 04:15] LABS: Alanine Aminotransferase < 9 U/L (7-40); Albumin 2.3 g/dL (3.2-4.8); Aspartate Aminotransferase < 8 U/L (13-40); Blood Urea Nitrogen 53 mg/dL (9-23); Calcium 8.2 mg/dL (8.7-10.4); Total Protein 5.3 g/dL (5.7-8.2)
--- NOTE | 2024-03-18 05:00 | DVH ---
CHEST RADIOGRAPH Indication: vent Technique: Single frontal view of the chest was obtained Comparison: XY CHEST PORTABLE on DOS: 03/17/24, XY CHEST PORTABLE on DOS: 03/16/24, XY CHEST PORTABLE o n DOS: 03/15/24 IMPRESSION: Endotracheal tube in relatively stable position. Left IJ tip in the region of the superior vena cava . Enteric tube tip in the region of the stomach. No discrete pneumothorax. Cardiomediastinal silhoue tte appears similar with an enlarged aortic arch. Patchy opacities in the left lung appear stable.
[2024-03-18 07:59] LABS: Base Excess -5.5 mmol/L (-2.0-3.0)
[2024-03-18] MEDS: FREE WATER GT SCH (08:00)
--- NOTE | 2024-03-18 09:04 | DVHPN2 ---
Subjective Intubated and off the pressors now Responds only to painful stimuli with some movements but does not follow commands FiO2 30% PEEP is 5 Changes from previous H/P or p: Changes Objective Vitals Vital Signs Date Time Temp Pulse Resp B/P (MAP) Pulse Ox O2 Delivery O2 Flow Rate FiO2 03/18/24 06:45 98.6 114 27 103/67 (79) 100 209.5 111/63 (79) 03/18/24 06:06 30 03/18/24 06:00 Mechanical Ventilator+ Intake/Output Intake and Output 03/18/24 07:00 Intake Total 1119.561 ml Output Total 1625 ml Balance -505.439 ml Intake Oral 30 ml IV Total 647.561 ml Tube Feeding 442 ml Output Urine Total 1625 ml General Appearance: Other (Intubated and sedated) Lungs: Other (Bilateral rhonchi) Cardiovascular: Regular rate, Normal S1, Normal S2 Abdomen: Normal bowel sounds, Soft, No tenderness Extremities: No edema Medications Current Medications Medications Dose Ordered Sig/Hunter Route Start Time Stop Time Status Last Admin Dose Admin Pantoprazole Sodium 40 mg DAILY IV 03/12/24 10:00 03/17/24 10:11 40 MG Morphine Sulfate 2 mg Q4HP PRN IV 03/11/24 16:30 Ipratropium [place] 0.5 mg Q4HR NEB 03/11/24 18:00 03/18/24 06:06 0.5 MG Enoxaparin Sodium 30 mg DAILY SC 03/12/24 10:00 03/16/24 11:35 30 MG Vancomycin HCl 0 ml @ 0 mls/hr UD IV 03/11/24 16:30 Enteral Nutritional Formula 1,000 ml 40ML/HR GT 03/11/24 16:30 03/14/24 17:14 1,000 ML Propofol 100 ml @ 1.635 mls/ hr Q24H IV 03/12/24 05:30 03/17/24 06:19 1.635 MLS/HR Diagnostic Test (Pha) 1 strip ACHS 03/12/24 11:30 03/18/24 06:45 1 STRIP Insulin Human Regular ACHS SC 03/12/24 11:30 03/14/24 07:48 2 UNITS Dextrose 50 ml UD PRN IV 03/12/24 08:30 Lactulose 30 ml BID PO 03/13/24 22:00 03/15/24 08:54 30 ML Norepinephrine Bitartrate 250 ml @ 1.875 mls/ hr Q24H IV 03/14/24 12:30 03/16/24 21:19 9.375 MLS/HR Ampicillin Sodium/ Sulbactam Sodium 3 gm/Sodium Chloride 100 ml @ 100 mls/hr Q6H IV 03/14/24 14:00 03/18/24 08:16 100 MLS/HR Fentanyl Citrate 250 ml @ 2.5 mls/hr Q24H IV 03/15/24 11:00 03/17/24 06:52 7.5 MLS/HR Bumetanide 12.5 mg/Miscellaneous 50 ml @ 2 mls/hr Q24H IV 03/15/24 13:00 03/17/24 18:34 2 MLS/HR Fluconazole 100 ml @ 100 mls/hr DAILY IV 03/18/24 10:00 Purified Water 150 ml Q6HR GT 03/18/24 08:00 Laboratory Results Laboratory Tests 03/18/24 03:20 Chemistry Test 03/18/24 03:20 Albumin 2.3 g/dL (3.2-4.8) L Calcium Level 8.2 mg/dL (8.7-10.4) L Magnesium Level 1.9 mg/dL (1.6-2.6) Total Protein 5.3 g/dL (5.7-8.2) L LFT Test 03/18/24 03:20 Alanine Aminotransferase (ALT) < 9 U/L (7-40) Alkaline Phosphatase 113 U/L (46-116) Aspartate Amino Transferase (AST) < 8 U/L (13-40) L Total Bilirubin 0.3 mg/dL (0.2-1.0) Urinalysis Test 03/11/24 04:00 03/12/24 15:25 Urine Color Yellow (Yellow) Urine Clarity Turbid (Clear) H Urine pH 6.0 (5.0-9.0) Urine Specific [place] 1.016 (1.001-1.035) Urine Protein 1+ (Negative) H Urine Ketones Negative (Negative) Urine Blood 1+ /uL (Negative) H Urine Nitrite Negative (Negative) Urine Bilirubin Negative (Negative) Urine Urobilinogen 2 mg/dL (Negative) H Urine Leukocyte Esterase 3+ /uL (Negative) Urine RBC 24 /hpf (0 - 3) Urine WBC 280 /hpf (0 - 3) Urine Squamous Epithelial Cells Few /hpf (<5) Urine Bacteria Many /hpf (None Seen) H Urine Mucus Few (None Seen) Urine Glucose Normal mg/dL (Normal) Urine Creatinine 27.92 mg/dL (30.0-125.0) L Urine Sodium 82 mmol/L (40-220) Blood Gas Results Test 03/18/24 07:50 Arterial Blood pH 7.430 (7.350-7.450) FiO2 % 30.0 Microbiology Microbiology Date/Time Source Procedure Growth Status 03/14/24 19:34 Blood Blood Culture - Preliminary NO GROWTH AFTER 72 HOURS OF INCUBATION. 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 for blood pressure support Pulmonary consult Start tube feeding Discussed with his son over the phone Full code 03/12/2024: Hypokalemia and hypomagnesemia: Replace potassium and magnesium Sedation: Fentanyl and propofol as needed, titrate to RASS -3 Decreased urine output: Give bolus 500 mL, start feeding Broad-spectrum antibiotics: Vancomycin and Zosyn DVT prophylaxis: Lovenox GI prophylaxis: Protonix Full code Discussed with the son over the phone yesterday, full code for now 03/13/2024: Septic shock: Continue vasopressors as needed Possible acute tubular necrosis: Diuresis with Lasix and Bumex per Nephrology, add albumin IV Sepsis due to pneumonia and UTI: Continue Zosyn IV Sedation as needed with fentanyl and propofol Pulmonary consultation is on DVT prophylaxis with Lovenox GI prophylaxis with Protonix Full code Discussed with the his son over the phone again now, he said to try everything, full code, questions answered 03/14/24: Septic shock: Levophed Sepsis: IV antibiotics Anemia: Transfuse RBCs [place]: Hemodynamically mediated Hypotension: IV fluids Protein calorie malnutrition Pneumonia UTI Continue Support Full code 03/15/24: Edema: Bumex 1 mg IV x1, discuss with nephrology Sepsis, PNA, UTI: Unasyn and Vanco [place] / Hypernatremia: DC IV fluids for now, Nephrology consult, Anemia: Received 2 units RBCs yesterday Malnutrition Taper Levophed as tolerated Sedation as needed Tube feeding Fluid overload?: DC IV fluids, discuss with nephrology 03/17/24: Continue IV antibiotics: Vancomycin and Unasyn C-PAP per Dr. Tay Taper sedation Bumex drip Taper Levophed drip slowly down as tolerated Discussed with the son over phone, explained the poor prognosis, explained the findings of possible metastatic disease in his bones, He will discuss the patient's condition with his family and get back to us by tomorrow 03/18/2024: Sedation is on hold CPAP trial per pulmonology Dr. Tay Hypernatremia: Add free water On Bumex drip per Nephrology Discussed the case and the patient's condition with his son over the phone again today The plan is to try to extubate him in the next few days and possibly make him a DNR For the time being he is full code Plan discussed with: Son, Other My Orders Orders - ALBERTO FREEMAN MD Procedure Category Date Status Time Chest Portable XY 03/18/24 Resulted 06:00 Abg W/ Co-Ox RT 03/18/24 Logged 06:00 Free Water PHA 03/18/24 In Process 08:00 Cpap Trial For Am ORDERS 03/18/24 Transmitted 08:48 Date of Service: Mar 18, 2024 Billing Provider: ALBERTO FREEMAN MD Common Visit Codes: NOT BILLABLE ALBERTO FREEMAN MD Mar 18, 2024 09:04
[2024-03-18] MEDS: FLUCONAZOLE 200MG/100ML 100 ML IV SCH (10:17)
[2024-03-18] MEDS: AMPICILLIN & SULBACTAM SODIUM 3 GM in SODIUM CHL 0.9% 100 ML IV SCH (21:04)
--- NOTE | 2024-03-18 21:05 | DVHPN2 ---
Progress Note - Dictate Date Seen: Mar 18, 2024 Medical Necessity Reason Pt with a Central, PICC or Fol: Yes The following are medically ne: Central Line, Sharpe Catheter Reason for sharpe catheter: Strict I&O Subjective Patient seen and examined at bedside. intubated on mechanical ventilator. Overnight events reviewed. vital signs Vital Sign Date Time Temp Pulse Resp B/P (MAP) Pulse Ox O2 Delivery O2 Flow Rate FiO2 03/18/24 18:45 97.5 107 26 139/85 (103) 100 207.5 110/67 (81) 03/18/24 18:00 30 03/18/24 10:00 Mechanical Ventilator+ Total Intake and Output 03/17/24 03/17/24 03/18/24 15:00 23:00 07:00 Intake Total 238.020 ml 617.208 ml 266.333 ml Output Total 700 ml 925 ml Balance 238.020 ml -82.792 ml -658.667 ml medications Current Medications Medications Dose Ordered Sig/[place] Route Start Time Stop Time Status Last Admin Dose Admin Pantoprazole Sodium 40 mg DAILY IV 03/12/24 10:00 03/18/24 10:17 40 MG Morphine Sulfate 2 mg Q4HP PRN IV 03/11/24 16:30 Ipratropium [place] 0.5 mg Q4HR NEB 03/11/24 18:00 03/18/24 14:29 0.5 MG Enoxaparin Sodium 30 mg DAILY SC 03/12/24 10:00 03/18/24 10:18 30 MG Vancomycin HCl 0 ml @ 0 mls/hr UD IV 03/11/24 16:30 Enteral Nutritional Formula 1,000 ml 40ML/HR GT 03/11/24 16:30 03/14/24 17:14 1,000 ML Propofol 100 ml @ 1.635 mls/ hr Q24H IV 03/12/24 05:30 03/17/24 06:19 1.635 MLS/HR Diagnostic Test (Pha) 1 strip ACHS 03/12/24 11:30 03/18/24 16:38 1 STRIP Insulin Human Regular ACHS SC 03/12/24 11:30 03/14/24 07:48 2 UNITS Dextrose 50 ml UD PRN IV 03/12/24 08:30 Lactulose 30 ml BID PO 03/13/24 22:00 03/15/24 08:54 30 ML Norepinephrine Bitartrate 250 ml @ 1.875 mls/ hr Q24H IV 03/14/24 12:30 03/16/24 21:19 9.375 MLS/HR Fentanyl Citrate 250 ml @ 2.5 mls/hr Q24H IV 03/15/24 11:00 03/17/24 06:52 7.5 MLS/HR Bumetanide 12.5 mg/Miscellaneous 50 ml @ 2 mls/hr Q24H IV 03/15/24 13:00 03/17/24 18:34 2 MLS/HR Fluconazole 100 ml @ 100 mls/hr DAILY IV 03/18/24 10:00 03/18/24 10:17 100 MLS/HR Purified Water 150 ml Q6HR GT 03/18/24 08:00 03/18/24 17:12 150 ML Ampicillin Sodium/ Sulbactam Sodium 3 gm/Sodium Chloride 100 ml @ 100 mls/hr Q12H IV 03/18/24 20:00 objective Gen.: Patient lying in bed in medical ICU. Intubated on mechanical ventilator. Head: Normocephalic, atraumatic. Eyes: PERRLA. Ears: Normal external anatomy. Throat: Endotracheal tube and orogastric tube in place. Neck: Supple, trachea midline. Chest: Transmitted breath sounds bilaterally. Decreased air entry bilaterally. No wheezing. Bibasilar crackles. Cardiovascular: Positive S1, positive S2. Regular rate and rhythm. Abdomen: Positive bowel sounds in all 4 quadrants. Soft, nontender, nondistended. : Sharpe in place. Normal external genitalia. Rectal: Deferred. Skin: Warm, dry. Intact. Extremities: 2+ radial pulses bilaterally. No lower extremity edema. 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 Off sedation. Off Levophed, hemodynamically stable. Patient grimaces to tactile stimuli. ABG reviewed, compensated. CXR demonstrates devices in place. Patchy opacities in the left lung appear stable. No pneumothorax. WBC trending down, 22.9 K Continue antibiotics Hemoglobin stable, 10.2 g/dL. Platelets stable at 102 k. Tube feeds for nutritional support. Continue Bumex drip for diuresis Monitor renal function Monitor electrolytes. Supplement as necessary. Monitor UOP. Labs and imaging reviewed. Rest of plan as noted below. Plan: s/p intubation on mechanical ventilator. ABG reviewed, compensated. On AC mode; RR 21/VT 500/PEEP 5/FiO2 30%. Titrate FIO2 to keep O2 saturation above 90%. VAP bundle. Daily ABG and CXR while intubated Off sedation Off pressors, hemodynamically stable. S/p bronchoscopy on 03/12/24 - see separate procedure note for details. Antibiotics F/u cultures - Blood cultures show no growth x72 hours Tube feeds for nutritional support Monitor renal function Monitor electrolytes. Supplement as necessary. Monitor ins and outs. Maintain euvolemia Wound care Accu-Cheks, insulin sliding scale PRN. Lactic acid trending down. GI prophylaxis with Protonix IV DVT prophylaxis with Lovenox Prognosis: Poor given patient's multiple co-morbidities. Condition: Critical Rest of plan per hospitalist and other consultants. A total of 35 minutes of critical care time was spent reviewing the patient record, examining the patient, making a diagnostic and therapeutic plan, discussing this plan with the medical personnel, following up on diagnostic studies and following the patient for clinical stability excluding any and all procedures. At least 50% of this time was spent in direct, [id number] contact. Thank you Dr. Graham Espitia MD, for allowing me to participate in this patient's care. Further recommendations will depend on the patient's clinical course. Please do not hesitate to contact me if you have any questions or concerns. This medical document was created using an electronic medical record system with [employer] system. Although these documentations are being carefully reviewed, there may still be some phonetic and typographical changes. The errors are purely typographical, due to imperfection on the software program, and do not reflect any compromise in the patient's medical care. Dietary Evaluation Review Comments: 1) Consider Glucerna 1.2 @ 45ml/hr x 24hr goal rate as tolerated 2) If pt remains NPO initiate TPN within 2-3 days of NPO status as pt is underweight. 3) Advance pt diet when medically feasible to a CCHO 60g diet modified per [employer] recommendations. 4) Consider PARADISE 1 pkt BIDWM for wound 5) Continue current plan of care Expected Outcomes/Goals: 1) Pt to receive nutrition support within 2-3 days of NPO status. 2) Pt diet to advance 3) F/U in 2-3 days Plan discussed with: Other (IRENE Hutchinson) Critical Care Time(min): 35 GERRY FERRO MD Mar 18, 2024 21:05
--- NOTE | 2024-03-18 21:10 | DVHPN2 ---
Progress Note - Dictate Date Seen: Mar 18, 2024 Medical Necessity Reason Pt with a Central, PICC or Fol: Yes The following are medically ne: Central Line, Sharpe Catheter Reason for sharpe catheter: Strict I&O Subjective Patient is iIntubated and off the pressors now Responds only to painful stimuli with some movements but does not follow commands FiO2 30% PEEP is 5 PT PLACED ON CPAP 11/11 called Mio Byers at [phone]: discussed about current situation and worsening despite adequate antibiotics. He reports he will discuss with his family later today about goals of care Culture History: 03/11, Sputum culture preliminary showed Normal Oropharyngeal Eugenia 03/11, Blood culture showed Staph hominis subsp homins. Repeat blood culture showed no growth after 72 hours of intubation. 1203, Urine culture showed Klebsiella pneumoniae >100,000 CFU/ML and Enterococcus faecalis >100,000 CFU/ML 03/11, Wound culture showed Escherichia coli and Enterococcus faecalis 03/12, MRSA screening: Negative Review of imaging shows: 03/18 : Endotracheal tube in relatively stable position. Left IJ tip in the region of the superior vena cava. Enteric tube tip in the region of the stomach. No discrete pneumothorax. Cardiomediastinal silhouette appears similar with an enlarged aortic arch. Patchy opacities in the left lung appear stable. 03/15, Chest x-ray: Endotracheal tube in good position. Bibasilar opacities may reflect mild pneumonia. Aeration is stable to minimally improved since March 14, 2024. 03/11, Head CT: No evidence of acute intracranial hemorrhage or mass effect. Mild ventriculomegaly. Mild hydrocephalus is not excluded. vital signs Vital Sign Date Time Temp Pulse Resp B/P (MAP) Pulse Ox O2 Delivery O2 Flow Rate FiO2 03/18/24 18:45 97.5 107 26 139/85 (103) 100 207.5 110/67 (81) 03/18/24 18:00 30 03/18/24 10:00 Mechanical Ventilator+ Total Intake and Output 03/17/24 03/17/24 03/18/24 15:00 23:00 07:00 Intake Total 238.020 ml 617.208 ml 266.333 ml Output Total 700 ml 925 ml Balance 238.020 ml -82.792 ml -658.667 ml medications Current Medications Medications Dose Ordered Sig/Hunter Route Start Time Stop Time Status Last Admin Dose Admin Pantoprazole Sodium 40 mg DAILY IV 03/12/24 10:00 03/18/24 10:17 40 MG Morphine Sulfate 2 mg Q4HP PRN IV 03/11/24 16:30 Ipratropium [place] 0.5 mg Q4HR NEB 03/11/24 18:00 03/18/24 14:29 0.5 MG Enoxaparin Sodium 30 mg DAILY SC 03/12/24 10:00 03/18/24 10:18 30 MG Vancomycin HCl 0 ml @ 0 mls/hr UD IV 03/11/24 16:30 Enteral Nutritional Formula 1,000 ml 40ML/HR GT 03/11/24 16:30 03/14/24 17:14 1,000 ML Propofol 100 ml @ 1.635 mls/ hr Q24H IV 03/12/24 05:30 03/17/24 06:19 1.635 MLS/HR Diagnostic Test (Pha) 1 strip ACHS 03/12/24 11:30 03/18/24 16:38 1 STRIP Insulin Human Regular ACHS SC 03/12/24 11:30 03/14/24 07:48 2 UNITS Dextrose 50 ml UD PRN IV 03/12/24 08:30 Lactulose 30 ml BID PO 03/13/24 22:00 03/15/24 08:54 30 ML Norepinephrine Bitartrate 250 ml @ 1.875 mls/ hr Q24H IV 03/14/24 12:30 03/16/24 21:19 9.375 MLS/HR Fentanyl Citrate 250 ml @ 2.5 mls/hr Q24H IV 03/15/24 11:00 03/17/24 06:52 7.5 MLS/HR Bumetanide 12.5 mg/Miscellaneous 50 ml @ 2 mls/hr Q24H IV 03/15/24 13:00 03/17/24 18:34 2 MLS/HR Fluconazole 100 ml @ 100 mls/hr DAILY IV 03/18/24 10:00 03/18/24 10:17 100 MLS/HR Purified Water 150 ml Q6HR GT 03/18/24 08:00 03/18/24 17:12 150 ML Ampicillin Sodium/ Sulbactam Sodium 3 gm/Sodium Chloride 100 ml @ 100 mls/hr Q12H IV 03/18/24 20:00 objective General: Patient lying in bed in medical ICU. Sedated, intubated on mechanical ventilator. Head: Normocephalic, atraumatic. Eyes: PERRLA. Ears: Normal external anatomy. Throat: Endotracheal tube and orogastric tube in place. Neck: Supple, trachea midline. Chest: Transmitted breath sounds bilaterally. Decreased air entry bilaterally. No wheezing. Bibasilar crackles. Cardiovascular: Positive S1, positive S2. Regular rate and rhythm. Abdomen: Positive bowel sounds in all 4 quadrants. Soft, nontender, nondistended. : Sharpe in place. Normal external genitalia. Skin: Warm, dry. Intact. Extremities: 2+ radial pulses bilaterally. No lower extremity edema. Neuro: Sedated. laboratory and microbiology Laboratory Tests 03/18/24 03:20 Test 03/18/24 03:20 Range/Units Serum Glucose 115 H 74-106 mg/dL Assessment/Plan Patient is a 83-year-old male presents to the hospital with: Septic shock leucocytosis Ecoli/ klebsiella infection Staphylococcus hominis bacteremia concern for metastatic disease: ALOC acute hypoxic respiratory failure UTI [place] Recommendations blood culture is likely contamination, repeat two sets are no growth Currently on Vancomycin, trough is high, hold the dose and repeat levels, 03/15 Random trough 22.9 ( dose on hold) cont IV Unasyn : both GN are sensitive pressor requirement worsening consider stress dose steroids called Mio Byers ( son) at [phone]: discussed about current situation and worsening despite antibiotics. His kidneys are shutting down as well. will empirically add fluconazole for now son unaware of any h/o malignancy or any work up done He reports he will discuss with his family later today about goals of care and report back tomorrow prognosis is critical. critical time greater than 40 minutes spent in management Dietary Evaluation Review Comments: 1) Consider Glucerna 1.2 @ 45ml/hr x 24hr goal rate as tolerated 2) If pt remains NPO initiate TPN within 2-3 days of NPO status as pt is underweight. 3) Advance pt diet when medically feasible to a CCHO 60g diet modified per PLIER WORKER recommendations. 4) Consider PARADISE 1 pkt BIDWM for wound 5) Continue current plan of care Expected Outcomes/Goals: 1) Pt to receive nutrition support within 2-3 days of NPO status. 2) Pt diet to advance 3) F/U in 2-3 days DELMY STERLING MD Mar 18, 2024 21:10
--- NOTE | 2024-03-18 21:37 | DVHPN2 ---
Progress Note Date Seen: Mar 18, 2024 Medical Necessity Reason Pt with a Central, PICC or Fol: Yes The following are medically ne: Central Line, Sharpe Catheter Reason for sharpe catheter: Strict I&O Subjective Patient reports: Other (no events) Review of Systems: Deferred Objective vital signs Vital Sign Date Time Temp Pulse Resp B/P (MAP) Pulse Ox O2 Delivery O2 Flow Rate FiO2 03/18/24 18:45 97.5 107 26 139/85 (103) 100 207.5 110/67 (81) 03/18/24 18:00 30 03/18/24 10:00 Mechanical Ventilator+ Total Intake and Output 03/17/24 03/17/24 03/18/24 15:00 23:00 07:00 Intake Total 238.020 ml 617.208 ml 266.333 ml Output Total 700 ml 925 ml Balance 238.020 ml -82.792 ml -658.667 ml medications Current Medications Medications Dose Ordered Sig/Hunter Route Start Time Stop Time Status Last Admin Dose Admin Pantoprazole Sodium 40 mg DAILY IV 03/12/24 10:00 03/18/24 10:17 40 MG Morphine Sulfate 2 mg Q4HP PRN IV 03/11/24 16:30 Ipratropium [place] 0.5 mg Q4HR NEB 03/11/24 18:00 03/18/24 14:29 0.5 MG Enoxaparin Sodium 30 mg DAILY SC 03/12/24 10:00 03/18/24 10:18 30 MG Vancomycin HCl 0 ml @ 0 mls/hr UD IV 03/11/24 16:30 Enteral Nutritional Formula 1,000 ml 40ML/HR GT 03/11/24 16:30 03/14/24 17:14 1,000 ML Propofol 100 ml @ 1.635 mls/ hr Q24H IV 03/12/24 05:30 03/17/24 06:19 1.635 MLS/HR Diagnostic Test (Pha) 1 strip ACHS 03/12/24 11:30 03/18/24 16:38 1 STRIP Insulin Human Regular ACHS SC 03/12/24 11:30 03/14/24 07:48 2 UNITS Dextrose 50 ml UD PRN IV 03/12/24 08:30 Lactulose 30 ml BID PO 03/13/24 22:00 03/15/24 08:54 30 ML Norepinephrine Bitartrate 250 ml @ 1.875 mls/ hr Q24H IV 03/14/24 12:30 03/16/24 21:19 9.375 MLS/HR Fentanyl Citrate 250 ml @ 2.5 mls/hr Q24H IV 03/15/24 11:00 03/17/24 06:52 7.5 MLS/HR Bumetanide 12.5 mg/Miscellaneous 50 ml @ 2 mls/hr Q24H IV 03/15/24 13:00 03/17/24 18:34 2 MLS/HR Fluconazole 100 ml @ 100 mls/hr DAILY IV 03/18/24 10:00 03/18/24 10:17 100 MLS/HR Purified Water 150 ml Q6HR GT 03/18/24 08:00 03/18/24 17:12 150 ML Ampicillin Sodium/ Sulbactam Sodium 3 gm/Sodium Chloride 100 ml @ 100 mls/hr Q12H IV 03/18/24 20:00 03/18/24 21:04 100 MLS/HR laboratory and microbiology Laboratory Tests 03/18/24 03:20 Test 03/18/24 03:20 Range/Units Serum Glucose 115 H 74-106 mg/dL Microbiology Date/Time Source Procedure Growth Status 03/14/24 19:34 Blood Blood Culture - Preliminary NO GROWTH AFTER 72 HOURS OF INCUBATION. Resulted 03/12/24 18:05 Nose MRSA Screen - Final Complete 03/11/24 04:00 Urine - [place] Urine Culture - Final Klebsiella pneumoniae Enterococcus faecalis Complete 03/11/24 03:20 Sputum Endotracheal Wash Gram Stain - Final Complete 03/11/24 03:20 Respiratory Culture - Final Presumptive Janiya albicans Complete Problem List/Assessment/Plan Problem List/Assessment/Plan Acute kidney injury possibly ischemic ATN . FENA 2% + vancotoxicity Significant hypotension noted Septic shock due to multiple sources including decubitus ulcer as well as urinary tract infection Protein calorie malnutrition Pneumonia multi lobar s/p bronchoscopy shows mucous plug hypernatremia recs stop bumex drip off levophed free water for Na correction Plan discussed with: Patient Dietary Evaluation Review Comments: 1) Consider Glucerna 1.2 @ 45ml/hr x 24hr goal rate as tolerated 2) If pt remains NPO initiate TPN within 2-3 days of NPO status as pt is underweight. 3) Advance pt diet when medically feasible to a CCHO 60g diet modified per HAZARD WASTE HANDLER recommendations. 4) Consider PARADISE 1 pkt BIDWM for wound 5) Continue current plan of care Expected Outcomes/Goals: 1) Pt to receive nutrition support within 2-3 days of NPO status. 2) Pt diet to advance 3) F/U in 2-3 days SONAL MENDEZ MD Mar 18, 2024 21:36
[2024-03-19] VITALS (84 sets, daily range): BP systolic 92–208; BP diastolic 56–116; PULSE 88–116; RESP 19–35; TEMP 94.5–99; O2SAT 95–100
[2024-03-19 03:17] LABS: Basophils # (auto) 0 10 ^3/uL (0-0.2); Eosinophils # (auto) 0 10 ^3/uL (0-0.8); Eosinophils % (auto) 0.1 % (0.0-7.0); Hematocrit 30.9 % (41.0-53.0); Hemoglobin 10.1 g/dL (13.5-17.5); Lymphocytes # (auto) 1.1 10 ^3/uL (0.4-5.4); Lymphocytes % (auto) 5.3 % (10.0-50.0); Mean Corpuscular Hemoglobin 27.2 pg (28.0-32.0); Mean Corpuscular Hgb Conc. 32.7 g/dL (32.0-36.0); Mean Corpuscular Volume 83.4 fL (80.0-100.0); Monocytes # (auto) 0.5 10 ^3/uL (0-1.3); Monocytes % (auto) 2.2 % (0.0-12.0); Neutrophils # (auto) 19.9 10 ^3/uL (1.6-8.6); Neutrophils % (auto) 92.4 % (37.0-80.0); Nucleated Red Blood Cells % 0.1 %; Platelet Count (auto) 121 10^3/uL (140-450); Red Cell Distribution Width 17.8 % (11.8-14.3); White Blood Cell 21.6 10^3/uL (4.4-10.8)
[2024-03-19 03:36] LABS: Anion Gap 17 (5-15); Bilirubin, Total 0.3 mg/dL (0.2-1.0); Carbon Dioxide 22 mmol/L (20-31)
[2024-03-19 03:40] LABS: Alanine Aminotransferase < 9 U/L (7-40); Alkaline Phosphatase 132 U/L (46-116); Aspartate Aminotransferase < 8 U/L (13-40); Blood Urea Nitrogen 72 mg/dL (9-23); Chloride 111 mmol/L (98-107); Glucose 113 mg/dL (74-106); Potassium 3.4 mmol/L (3.5-5.1); Sodium 150 mmol/L (136-145); Total Protein 5.2 g/dL (5.7-8.2)
[2024-03-19 03:41] LABS: Albumin 2.1 g/dL (3.2-4.8)
--- NOTE | 2024-03-19 04:55 | DVH ---
CHEST RADIOGRAPH Indication: vent Technique: Single frontal view of the chest was obtained COMPARISON: XY CHEST PORTABLE on DOS: 03/18/24, XY CHEST PORTABLE on DOS: 03/17/24, XY CHEST PORTABLE on DOS: 03/16/24, XY CHEST PORTABLE on DOS: 03/17/24 FINDINGS: Lines and Tubes: Endotracheal tube, enteric catheter and left central venous catheter in satisfactory position. Lungs: Multifocal airspace disease. Pleura: No effusion. No pneumothorax. Cardiomediastinal contours: Unremarkable Bones: Unremarkable IMPRESSION: Lines and tubes in satisfactory position. No significant interval change.
[2024-03-19 07:06] LABS: Base Excess -5.8 mmol/L (-2.0-3.0)
--- NOTE | 2024-03-19 08:41 | DVHPN2 ---
Subjective Intubated and off the pressors now Waking up slowly Responds only to painful stimuli with some movements but does not follow commands FiO2 30% PEEP is 5 Changes from previous H/P or p: Changes Objective Vitals Vital Signs Date Time Temp Pulse Resp B/P (MAP) Pulse Ox O2 Delivery O2 Flow Rate FiO2 03/19/24 08:15 111 30 126/74 (91) 100 30 03/19/24 05:15 94.5 202.1 03/18/24 20:00 Mechanical Ventilator+ Intake/Output Intake and Output 03/19/24 07:00 Intake Total 1154 ml Output Total 1575 ml Balance -421 ml Intake Oral 600 ml IV Total 330 ml Tube Feeding 224 ml Output Urine Total 1575 ml General Appearance: Other (Intubated and off sedation) Lungs: Other (Bilateral rhonchi) Cardiovascular: Regular rate, Normal S1, Normal S2 Abdomen: Normal bowel sounds, Soft, No tenderness Extremities: No edema Medications Current Medications Medications Dose Ordered Sig/Hunter Route Start Time Stop Time Status Last Admin Dose Admin Pantoprazole Sodium 40 mg DAILY IV 03/12/24 10:00 03/18/24 10:17 40 MG Morphine Sulfate 2 mg Q4HP PRN IV 03/11/24 16:30 Ipratropium [place] 0.5 mg Q4HR NEB 03/11/24 18:00 03/19/24 06:05 0.5 MG Enoxaparin Sodium 30 mg DAILY SC 03/12/24 10:00 03/18/24 10:18 30 MG Vancomycin HCl 0 ml @ 0 mls/hr UD IV 03/11/24 16:30 Enteral Nutritional Formula 1,000 ml 40ML/HR GT 03/11/24 16:30 03/14/24 17:14 1,000 ML Propofol 100 ml @ 1.635 mls/ hr Q24H IV 03/12/24 05:30 03/17/24 06:19 1.635 MLS/HR Diagnostic Test (Pha) 1 strip ACHS 03/12/24 11:30 03/19/24 07:25 1 STRIP Insulin Human Regular ACHS SC 03/12/24 11:30 03/14/24 07:48 2 UNITS Dextrose 50 ml UD PRN IV 03/12/24 08:30 Lactulose 30 ml BID PO 03/13/24 22:00 03/15/24 08:54 30 ML Norepinephrine Bitartrate 250 ml @ 1.875 mls/ hr Q24H IV 03/14/24 12:30 03/16/24 21:19 9.375 MLS/HR Fentanyl Citrate 250 ml @ 2.5 mls/hr Q24H IV 03/15/24 11:00 03/17/24 06:52 7.5 MLS/HR Fluconazole 100 ml @ 100 mls/hr DAILY IV 03/18/24 10:00 03/18/24 10:17 100 MLS/HR Ampicillin Sodium/ Sulbactam Sodium 3 gm/Sodium Chloride 100 ml @ 100 mls/hr Q12H IV 03/18/24 20:00 03/19/24 07:28 100 MLS/HR Purified Water 200 ml Q4HR GT 03/19/24 10:00 Laboratory Results Laboratory Tests 03/19/24 02:56 Chemistry Test 03/19/24 02:56 Albumin 2.1 g/dL (3.2-4.8) L Calcium Level 8.0 mg/dL (8.7-10.4) L Magnesium Level 2.0 mg/dL (1.6-2.6) Total Protein 5.2 g/dL (5.7-8.2) L LFT Test 03/19/24 02:56 Alanine Aminotransferase (ALT) < 9 U/L (7-40) Alkaline Phosphatase 132 U/L (46-116) H Aspartate Amino Transferase (AST) < 8 U/L (13-40) L Total Bilirubin 0.3 mg/dL (0.2-1.0) Urinalysis Test 03/11/24 04:00 03/12/24 15:25 Urine Color Yellow (Yellow) Urine Clarity Turbid (Clear) H Urine pH 6.0 (5.0-9.0) Urine Specific [place] 1.016 (1.001-1.035) Urine Protein 1+ (Negative) H Urine Ketones Negative (Negative) Urine Blood 1+ /uL (Negative) H Urine Nitrite Negative (Negative) Urine Bilirubin Negative (Negative) Urine Urobilinogen 2 mg/dL (Negative) H Urine Leukocyte Esterase 3+ /uL (Negative) Urine RBC 24 /hpf (0 - 3) Urine WBC 280 /hpf (0 - 3) Urine Squamous Epithelial Cells Few /hpf (<5) Urine Bacteria Many /hpf (None Seen) H Urine Mucus Few (None Seen) Urine Glucose Normal mg/dL (Normal) Urine Creatinine 27.92 mg/dL (30.0-125.0) L Urine Sodium 82 mmol/L (40-220) Blood Gas Results Test 03/19/24 06:57 Arterial Blood pH 7.435 (7.350-7.450) FiO2 % 30.0 Microbiology Microbiology Date/Time Source Procedure Growth Status 03/14/24 19:34 Blood Blood Culture - Preliminary NO GROWTH AFTER 72 HOURS OF INCUBATION. 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 for blood pressure support Pulmonary consult Start tube feeding Discussed with his son over the phone Full code 03/12/2024: Hypokalemia and hypomagnesemia: Replace potassium and magnesium Sedation: Fentanyl and propofol as needed, titrate to RASS -3 Decreased urine output: Give bolus 500 mL, start feeding Broad-spectrum antibiotics: Vancomycin and Zosyn DVT prophylaxis: Lovenox GI prophylaxis: Protonix Full code Discussed with the son over the phone yesterday, full code for now 03/13/2024: Septic shock: Continue vasopressors as needed Possible acute tubular necrosis: Diuresis with Lasix and Bumex per Nephrology, add albumin IV Sepsis due to pneumonia and UTI: Continue Zosyn IV Sedation as needed with fentanyl and propofol Pulmonary consultation is on DVT prophylaxis with Lovenox GI prophylaxis with Protonix Full code Discussed with the his son over the phone again now, he said to try everything, full code, questions answered 03/14/24: Septic shock: Levophed Sepsis: IV antibiotics Anemia: Transfuse RBCs [place]: Hemodynamically mediated Hypotension: IV fluids Protein calorie malnutrition Pneumonia UTI Continue Support Full code 03/15/24: Edema: Bumex 1 mg IV x1, discuss with nephrology Sepsis, PNA, UTI: Unasyn and Vanco [place] / Hypernatremia: DC IV fluids for now, Nephrology consult, Anemia: Received 2 units RBCs yesterday Malnutrition Taper Levophed as tolerated Sedation as needed Tube feeding Fluid overload?: DC IV fluids, discuss with nephrology 03/17/24: Continue IV antibiotics: Vancomycin and Unasyn C-PAP per Dr. Tay Taper sedation Bumex drip Taper Levophed drip slowly down as tolerated Discussed with the son over phone, explained the poor prognosis, explained the findings of possible metastatic disease in his bones, He will discuss the patient's condition with his family and get back to us by tomorrow 03/18/2024: Sedation is on hold CPAP trial per pulmonology Dr. Tay Hypernatremia: Add free water On Bumex drip per Nephrology Discussed the case and the patient's condition with his son over the phone again today The plan is to try to extubate him in the next few days and possibly make him a DNR For the time being he is full code 03/19/24: Hypernatremia: Increase H2O C-PAP Chemical code IV antibiotics: Unasyn and Vancomycin The plan is to go home on Hospice once extubated Plan discussed with: Son, Other My Orders Orders - ALBERTO FREEMAN MD Procedure Category Date Status Time Cpap Trial For Am ORDERS 03/18/24 Transmitted 08:48 Chest Portable XY 03/19/24 Resulted 06:00 Abg W/ Co-Ox RT 03/19/24 Logged 06:00 Modified Resuscitive CODE 03/18/24 Transmitted Measures Code Status CODE 03/18/24 Transmitted 16:13 Vancomycin,Random LAB 03/20/24 Verified 05:00 Creatinine LAB 03/20/24 Verified 05:00 Vancomycin Per SMITHA 03/18/24 In Process Pharmacy Protoc 16:18 Free Water PHA 03/19/24 In Process 10:00 Date of Service: Mar 19, 2024 Billing Provider: ALBERTO FREEMAN MD Common Visit Codes: NOT BILLABLE ALBERTO FREEMAN MD Mar 19, 2024 08:41
[2024-03-19] MEDS: FREE WATER GT SCH (10:00)
[2024-03-19] MEDS: MORPHINE SULFATE INJ 2 MG/ml SYRG IV PRN (14:21)
--- NOTE | 2024-03-19 18:34 | DVHPN2 ---
Progress Note Date Seen: Mar 19, 2024 Medical Necessity Reason Pt with a Central, PICC or Fol: Yes The following are medically ne: Central Line, Sharpe Catheter Reason for sharpe catheter: Strict I&O Subjective Patient reports: Other (events noted) Review of Systems: Deferred Objective vital signs Vital Sign Date Time Temp Pulse Resp B/P (MAP) Pulse Ox O2 Delivery O2 Flow Rate FiO2 03/19/24 17:30 96 24 160/91 (114) 99 124/63 (83) 03/19/24 16:00 97.9 97.9 03/19/24 13:29 30 03/19/24 10:00 Mechanical Ventilator+ Total Intake and Output 03/18/24 03/18/24 03/19/24 14:59 22:59 06:59 Intake Total 216 ml 446 ml 494 ml Output Total 825 ml 750 ml Balance 216 ml -379 ml -256 ml medications Current Medications Medications Dose Ordered Sig/[place] Route Start Time Stop Time Status Last Admin Dose Admin Pantoprazole Sodium 40 mg DAILY IV 03/12/24 10:00 03/19/24 10:44 40 MG Enoxaparin Sodium 30 mg DAILY SC 03/12/24 10:00 03/19/24 10:45 30 MG Vancomycin HCl 0 ml @ 0 mls/hr UD IV 03/11/24 16:30 Enteral Nutritional Formula 1,000 ml 40ML/HR GT 03/11/24 16:30 03/14/24 17:14 1,000 ML Propofol 100 ml @ 1.635 mls/ hr Q24H IV 03/12/24 05:30 03/17/24 06:19 1.635 MLS/HR Diagnostic Test (Pha) 1 strip ACHS 03/12/24 11:30 03/19/24 17:28 1 STRIP Insulin Human Regular ACHS SC 03/12/24 11:30 03/14/24 07:48 2 UNITS Dextrose 50 ml UD PRN IV 03/12/24 08:30 Lactulose 30 ml BID PO 03/13/24 22:00 03/19/24 10:45 30 ML Norepinephrine Bitartrate 250 ml @ 1.875 mls/ hr Q24H IV 03/14/24 12:30 03/16/24 21:19 9.375 MLS/HR Fentanyl Citrate 250 ml @ 2.5 mls/hr Q24H IV 03/15/24 11:00 03/17/24 06:52 7.5 MLS/HR Fluconazole 100 ml @ 100 mls/hr DAILY IV 03/18/24 10:00 03/19/24 10:44 100 MLS/HR Ampicillin Sodium/ Sulbactam Sodium 3 gm/Sodium Chloride 100 ml @ 100 mls/hr Q12H IV 03/18/24 20:00 03/19/24 07:28 100 MLS/HR Purified Water 200 ml Q4HR GT 03/19/24 10:00 03/19/24 17:35 200 ML Morphine Sulfate 1 mg Q2HP PRN IV 03/19/24 11:45 03/19/24 14:21 1 MG Examination: LUNGS:Abnormal, MSK:Abnormal, NEURO:Abnormal laboratory and microbiology Laboratory Tests 03/19/24 02:56 Test 03/19/24 02:56 Range/Units Serum Glucose 113 H 74-106 mg/dL Microbiology Date/Time Source Procedure Growth Status 03/14/24 19:34 Blood Blood Culture - Preliminary NO GROWTH AFTER 72 HOURS OF INCUBATION. Resulted 03/12/24 18:05 Nose MRSA Screen - Final Complete 03/11/24 04:00 Urine - [place] Urine Culture - Final Klebsiella pneumoniae Enterococcus faecalis Complete 03/11/24 03:20 Sputum Endotracheal Wash Gram Stain - Final Complete 03/11/24 03:20 Respiratory Culture - Final Presumptive Janiya albicans Complete Problem List/Assessment/Plan Problem List/Assessment/Plan Acute kidney injury possibly ischemic ATN . FENA 2% + vancotoxicity Significant hypotension noted Septic shock due to multiple sources including decubitus ulcer as well as urinary tract infection Protein calorie malnutrition Pneumonia multi lobar s/p bronchoscopy shows mucous plug hypernatremia recs pt for terminal wean i will sign off this case Plan discussed with: Other Dietary Evaluation Review Comments: 1) Consider Glucerna 1.2 @ 45ml/hr x 24hr goal rate as tolerated 2) If pt remains NPO initiate TPN within 2-3 days of NPO status as pt is underweight. 3) Advance pt diet when medically feasible to a CCHO 60g diet modified per MILIT[employer] TECHNOLOGY SPECIALIST recommendations. 4) Consider [place] 1 pkt BIDWM for wound 5) Continue current plan of care Expected Outcomes/Goals: 1) Pt to receive nutrition support within 2-3 days of NPO status. 2) Pt diet to advance 3) F/U in 2-3 days SONAL MENDEZ MD Mar 19, 2024 18:34
--- NOTE | 2024-03-19 22:44 | DVHPN2 ---
Progress Note - Dictate Date Seen: Mar 19, 2024 Medical Necessity Reason Pt with a Central, PICC or Fol: Yes The following are medically ne: Central Line, Sharpe Catheter Reason for sharpe catheter: Strict I&O Subjective Patient seen and examined at bedside. intubated on mechanical ventilator. Overnight events reviewed. vital signs Vital Sign Date Time Temp Pulse Resp B/P (MAP) Pulse Ox O2 Delivery O2 Flow Rate FiO2 03/19/24 20:00 19 Room Air* 0 21 03/19/24 18:45 93 163/82 (109) 98 124/63 (83) 03/19/24 18:00 97.8 97.8 Total Intake and Output 03/18/24 03/18/24 03/19/24 15:00 23:00 07:00 Intake Total 216 ml 444 ml 494 ml Output Total 825 ml 750 ml Balance 216 ml -381 ml -256 ml medications Current Medications Medications Dose Ordered Sig/Hunter Route Start Time Stop Time Status Last Admin Dose Admin Pantoprazole Sodium 40 mg DAILY IV 03/12/24 10:00 03/19/24 10:44 40 MG Enoxaparin Sodium 30 mg DAILY SC 03/12/24 10:00 03/19/24 10:45 30 MG Vancomycin HCl 0 ml @ 0 mls/hr UD IV 03/11/24 16:30 Enteral Nutritional Formula 1,000 ml 40ML/HR GT 03/11/24 16:30 03/14/24 17:14 1,000 ML Propofol 100 ml @ 1.635 mls/ hr Q24H IV 03/12/24 05:30 03/17/24 06:19 1.635 MLS/HR Diagnostic Test (Pha) 1 strip ACHS 03/12/24 11:30 03/19/24 17:28 1 STRIP Insulin Human Regular ACHS SC 03/12/24 11:30 03/14/24 07:48 2 UNITS Dextrose 50 ml UD PRN IV 03/12/24 08:30 Lactulose 30 ml BID PO 03/13/24 22:00 03/19/24 10:45 30 ML Norepinephrine Bitartrate 250 ml @ 1.875 mls/ hr Q24H IV 03/14/24 12:30 03/16/24 21:19 9.375 MLS/HR Fentanyl Citrate 250 ml @ 2.5 mls/hr Q24H IV 03/15/24 11:00 03/17/24 06:52 7.5 MLS/HR Fluconazole 100 ml @ 100 mls/hr DAILY IV 03/18/24 10:00 03/19/24 10:44 100 MLS/HR Ampicillin Sodium/ Sulbactam Sodium 3 gm/Sodium Chloride 100 ml @ 100 mls/hr Q12H IV 03/18/24 20:00 03/19/24 07:28 100 MLS/HR Purified Water 200 ml Q4HR GT 03/19/24 10:00 03/19/24 17:35 200 ML Morphine Sulfate 1 mg Q2HP PRN IV 03/19/24 11:45 03/19/24 14:21 1 MG objective Gen.: Patient lying in bed in medical ICU. Intubated on mechanical ventilator. Head: Normocephalic, atraumatic. Eyes: PERRLA. Ears: Normal external anatomy. Throat: Endotracheal tube and orogastric tube in place. Neck: Supple, trachea midline. Chest: Transmitted breath sounds bilaterally. Decreased air entry bilaterally. No wheezing. Bibasilar crackles. Cardiovascular: Positive S1, positive S2. Regular rate and rhythm. Abdomen: Positive bowel sounds in all 4 quadrants. Soft, nontender, nondistended. : Sharpe in place. Normal external genitalia. Rectal: Deferred. Skin: Warm, dry. Intact. Extremities: 2+ radial pulses bilaterally. No lower extremity edema. 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 Chemical code - Modified code. Off sedation. Off Levophed, hemodynamically stable. Continue wound care. Continue antibiotics ABG reviewed, compensated. CXR demonstrates devices in place. Multifocal airspace disease. No significant interval change. WBC trending down, 21.6 K Continue antibiotics Hemoglobin stable, 10.1 g/dL. Platelets trending up at 121 k. Tube feeds for nutritional support. Labs and imaging reviewed. Rest of plan as noted below. Plan: s/p intubation on mechanical ventilator. ABG reviewed, compensated. On AC mode; RR 21/VT 500/PEEP 5/FiO2 30%. Titrate FIO2 to keep O2 saturation above 90%. VAP bundle. Daily ABG and CXR while intubated Off sedation Off pressors, hemodynamically stable. S/p bronchoscopy on 03/12/24 - see separate procedure note for details. Antibiotics F/u cultures - Blood cultures show no growth x72 hours Tube feeds for nutritional support Monitor renal function Monitor electrolytes. Supplement as necessary. Monitor ins and outs. Maintain euvolemia Wound care Accu-Cheks, insulin sliding scale PRN. Lactic acid trending down. GI prophylaxis with Protonix IV DVT prophylaxis with Lovenox Prognosis: Poor given patient's multiple co-morbidities. Condition: Critical Rest of plan per hospitalist and other consultants. A total of 35 minutes of critical care time was spent reviewing the patient record, examining the patient, making a diagnostic and therapeutic plan, discussing this plan with the medical personnel, following up on diagnostic studies and following the patient for clinical stability excluding any and all procedures. At least 50% of this time was spent in direct, [id number] contact. Thank you Dr. Graham Espitia MD, for allowing me to participate in this patient's care. Further recommendations will depend on the patient's clinical course. Please do not hesitate to contact me if you have any questions or concerns. This medical document was created using an electronic medical record system with [employer] dictation system. Although these documentations are being carefully reviewed, there may still be some phonetic and typographical changes. The errors are purely typographical, due to imperfection on the software program, and do not reflect any compromise in the patient's medical care. Dietary Evaluation Review Comments: 1) Consider Glucerna 1.2 @ 45ml/hr x 24hr goal rate as tolerated 2) If pt remains NPO initiate TPN within 2-3 days of NPO status as pt is underweight. 3) Advance pt diet when medically feasible to a CCHO 60g diet modified per PRIVATE BANKER recommendations. 4) Consider PARADISE 1 pkt BIDWM for wound 5) Continue current plan of care Expected Outcomes/Goals: 1) Pt to receive nutrition support within 2-3 days of NPO status. 2) Pt diet to advance 3) F/U in 2-3 days Plan discussed with: Other (IRENE Zuniga) Critical Care Time(min): 35 GERRY FERRO MD Mar 19, 2024 22:44
[2024-03-20] VITALS (8 sets, daily range): BP systolic 161–178; BP diastolic 80–95; PULSE 43–99; RESP 19–24; TEMP 96.1–97.5; O2SAT 74–95
--- NOTE | 2024-03-20 07:56 | DVH ---
CLINICAL INFORMATION: 83 years old, Male; vent. TECHNIQUE: Single AP portable chest radiograph was obtained. COMPARISON: XY CHEST PORTABLE on DOS: 03/19/24, XY CHEST PORTABLE on DOS: 03/18/24, XY CHEST PORTABLE on DOS: 03/17/24 FINDINGS: Interval removal of the endotracheal tube. Stable satisfactory positioning of the enteric tube and le ft internal jugular central venous catheter. Bilateral multifocal airspace opacities, appear slightly increased in the left lung, particularly in the left lung base. Possible small left pleural effusion . No pneumothorax. IMPRESSION: 1. Interval removal of the endotracheal tube. Stable satisfactory positioning of the enteric tube an d left internal jugular central venous catheter. 2. Bilateral multifocal airspace opacities, slightly increased in the left lung. Possible small left pleural effusion.
[2024-03-20] MEDS: LACTULOSE 20Gm/30ML SOLN GT SCH (09:58)
[2024-03-20 11:49] LABS: Alanine Aminotransferase 10 U/L (7-40); Anion Gap 19 (5-15); Aspartate Aminotransferase 15 U/L (13-40); BUN/Creatinine Ratio 30.8 (10.0-20.0); Carbon Dioxide 21 mmol/L (20-31)
[2024-03-20 11:50] LABS: Albumin 2.1 g/dL (3.2-4.8); Alkaline Phosphatase 118 U/L (46-116); Bilirubin, Total 0.2 mg/dL (0.2-1.0); Blood Urea Nitrogen 76 mg/dL (9-23); Calcium 7.4 mg/dL (8.7-10.4); Chloride 110 mmol/L (98-107); Glucose 68 mg/dL (74-106); Potassium 3.1 mmol/L (3.5-5.1); Sodium 150 mmol/L (136-145); Total Protein 5.2 g/dL (5.7-8.2)
[2024-03-20 11:52] LABS: Hematocrit 37.4 % (41.0-53.0); Hemoglobin 11.9 g/dL (13.5-17.5); Mean Corpuscular Hemoglobin 27.3 pg (28.0-32.0); Mean Corpuscular Hgb Conc. 31.9 g/dL (32.0-36.0); Mean Corpuscular Volume 85.7 fL (80.0-100.0); Platelet Count (auto) 125 10^3/uL (140-450); Red Blood Cells 4.37 10^6/uL (4.5-5.90); Red Cell Distribution Width 18.6 % (11.8-14.3); White Blood Cell 21.8 10^3/uL (4.4-10.8)
[2024-03-20 12:18] LABS: Band Neutrophils % (manual) 0; Basophils % (manual) 0 (0.0-2.0); Blast Cells 0; Metamyelocytes % 0; Myelocytes % 0; Promyelocytes % 0; Reactive Lymphocytes 0
[2024-03-20 13:05] LABS: Eosinophils % (manual) 1 (0-7); Lymphocytes % (manual) 4 (10.0-50.0); Monocytes % (manual) 3 (0-12)
[2024-03-20 13:06] LABS: Platelet Estimate Decreased
--- NOTE | 2024-03-20 14:28 | DVHPN2 ---
Subjective Unresponsive except to painful stimuli He was extubated yesterday terminally DNR comfort measures only, hospice arrangements in progress Changes from previous H/P or p: Changes Objective Vitals Vital Signs Date Time Temp Pulse Resp B/P (MAP) Pulse Ox O2 Delivery O2 Flow Rate FiO2 03/20/24 13:00 96.1 55 20 178/93 (121) 96.1 03/20/24 10:21 89 Room Air* 0 21 Intake/Output Intake and Output 03/20/24 07:00 Intake Total 625 ml Output Total 1450 ml Balance -825 ml Intake Oral 400 ml IV Total 225 ml Tube Feeding 0 ml Output Urine Total 1450 ml # Bowel Movements 1 General Appearance: Other (Somnolent, confused unresponsive, does not follow command) Lungs: Other (Bilateral rhonchi) Cardiovascular: Regular rate, Normal S1, Normal S2 Abdomen: Normal bowel sounds, Soft, No tenderness Extremities: No edema Medications Current Medications Medications Dose Ordered Sig/Hunter Route Start Time Stop Time Status Last Admin Dose Admin Pantoprazole Sodium 40 mg DAILY IV 03/12/24 10:00 03/20/24 09:59 40 MG Enoxaparin Sodium 30 mg DAILY SC 03/12/24 10:00 03/20/24 09:59 30 MG Vancomycin HCl 0 ml @ 0 mls/hr UD IV 03/11/24 16:30 Enteral Nutritional Formula 1,000 ml 40ML/HR GT 03/11/24 16:30 03/14/24 17:14 1,000 ML Fluconazole 100 ml @ 100 mls/hr DAILY IV 03/18/24 10:00 03/20/24 09:59 100 MLS/HR Ampicillin Sodium/ Sulbactam Sodium 3 gm/Sodium Chloride 100 ml @ 100 mls/hr Q12H IV 03/18/24 20:00 03/20/24 09:59 100 MLS/HR Purified Water 200 ml Q4HR GT 03/19/24 10:00 03/20/24 09:59 200 ML Morphine Sulfate 1 mg Q2HP PRN IV 03/19/24 11:45 03/19/24 14:21 1 MG Lactulose 30 ml BID GT 03/20/24 10:00 03/20/24 09:58 30 ML Laboratory Results Laboratory Tests 03/20/24 10:25 Chemistry Test 03/20/24 10:25 Albumin 2.1 g/dL (3.2-4.8) L Calcium Level 7.4 mg/dL (8.7-10.4) L Magnesium Level 2.0 mg/dL (1.6-2.6) Total Protein 5.2 g/dL (5.7-8.2) L LFT Test 03/20/24 10:25 Alanine Aminotransferase (ALT) 10 U/L (7-40) Alkaline Phosphatase 118 U/L (46-116) H Aspartate Amino Transferase (AST) 15 U/L (13-40) Total Bilirubin 0.2 mg/dL (0.2-1.0) Urinalysis Test 03/11/24 04:00 03/12/24 15:25 Urine Color Yellow (Yellow) Urine Clarity Turbid (Clear) H Urine pH 6.0 (5.0-9.0) Urine Specific [place] 1.016 (1.001-1.035) Urine Protein 1+ (Negative) H Urine Ketones Negative (Negative) Urine Blood 1+ /uL (Negative) H Urine Nitrite Negative (Negative) Urine Bilirubin Negative (Negative) Urine Urobilinogen 2 mg/dL (Negative) H Urine Leukocyte Esterase 3+ /uL (Negative) Urine RBC 24 /hpf (0 - 3) Urine WBC 280 /hpf (0 - 3) Urine Squamous Epithelial Cells Few /hpf (<5) Urine Bacteria Many /hpf (None Seen) H Urine Mucus Few (None Seen) Urine Glucose Normal mg/dL (Normal) Urine Creatinine 27.92 mg/dL (30.0-125.0) L Urine Sodium 82 mmol/L (40-220) Microbiology Microbiology Date/Time Source Procedure Growth Status 03/14/24 19:34 Blood Blood Culture - Final NO GROWTH AFTER 5 DAYS OF INCUBATION. Complete 03/12/24 18:05 Nose MRSA Screen - Final Complete 03/11/24 04:00 Urine - [place] Urine Culture - Final Klebsiella pneumoniae Enterococcus faecalis Complete 03/11/24 03:20 Sputum Endotracheal Wash Gram Stain - Final Complete 03/11/24 03:20 Respiratory Culture - Final Presumptive Janiya albicans Complete Assessment/Plan Assessment/Plan Acute hypoxic respiratory failure Sepsis with septic shock UTI Multi lobar pneumonia, mixed Gram-positive and Gram-negative Hypernatremia Hypoxemia Bed ridden x 2 years Large AAA 5.9 cm Constipation Diffuse mixed lytic osseous lesions suspicious for metastatic disease Bacteremia Gram-positive cocci in clusters Plan Admit to ICU Mechanical ventilation Broad-spectrum antibiotics Zosyn and vancomycin Sedation as needed: Discontinue Versed and start fentanyl drip, add propofol if needed DVT prophylaxis with Lovenox GI prophylaxis with Protonix IV Echo Get urine culture and blood culture and sputum culture Norepinephrine p.r.n. for blood pressure support Pulmonary consult Start tube feeding Discussed with his son over the phone Full code 03/12/2024: Hypokalemia and hypomagnesemia: Replace potassium and magnesium Sedation: Fentanyl and propofol as needed, titrate to RASS -3 Decreased urine output: Give bolus 500 mL, start feeding Broad-spectrum antibiotics: Vancomycin and Zosyn DVT prophylaxis: Lovenox GI prophylaxis: Protonix Full code Discussed with the son over the phone yesterday, full code for now 03/13/2024: Septic shock: Continue vasopressors as needed Possible acute tubular necrosis: Diuresis with Lasix and Bumex per Nephrology, add albumin IV Sepsis due to pneumonia and UTI: Continue Zosyn IV Sedation as needed with fentanyl and propofol Pulmonary consultation is on DVT prophylaxis with Lovenox GI prophylaxis with Protonix Full code Discussed with the his son over the phone again now, he said to try everything, full code, questions answered 03/14/24: Septic shock: Levophed Sepsis: IV antibiotics Anemia: Transfuse RBCs [place]: Hemodynamically mediated Hypotension: IV fluids Protein calorie malnutrition Pneumonia UTI Continue Support Full code 03/15/24: Edema: Bumex 1 mg IV x1, discuss with nephrology Sepsis, PNA, UTI: Unasyn and Vanco [place] / Hypernatremia: DC IV fluids for now, Nephrology consult, Anemia: Received 2 units RBCs yesterday Malnutrition Taper Levophed as tolerated Sedation as needed Tube feeding Fluid overload?: DC IV fluids, discuss with nephrology 03/17/24: Continue IV antibiotics: Vancomycin and Unasyn C-PAP per Dr. Tay Taper sedation Bumex drip Taper Levophed drip slowly down as tolerated Discussed with the son over phone, explained the poor prognosis, explained the findings of possible metastatic disease in his bones, He will discuss the patient's condition with his family and get back to us by tomorrow 03/18/2024: Sedation is on hold CPAP trial per pulmonology Dr. Tay Hypernatremia: Add free water On Bumex drip per Nephrology Discussed the case and the patient's condition with his son over the phone again today The plan is to try to extubate him in the next few days and possibly make him a DNR For the time being he is full code 03/19/24: Hypernatremia: Increase H2O C-PAP Chemical code IV antibiotics: Unasyn and Vancomycin The plan is to go home on Hospice once extubated 03/20/2024: Continue comfort treatment Oxygen as needed Continue NG tube and free water supplements for now Arrange hospice Discharge to hospice in a facility for family's recommendation DNR comfort measures only Plan discussed with: Son, Other My Orders Orders - ALBERTO FREEMAN MD Procedure Category Date Status Time Lactulose Oral PHA 03/20/24 In Process 10:00 Renal Function Test LAB 03/21/24 Verified 04:00 Vancomycin,Random LAB 03/21/24 Verified 04:00 Discharge DISCHARGE 03/20/24 Verified 14:25 Date of Service: Mar 20, 2024 Billing Provider: ALBERTO FREEMAN MD Common Visit Codes: NOT BILLABLE ALBERTO FREEMAN MD Mar 20, 2024 14:28
--- NOTE | 2024-03-20 22:25 | DVHPN2 ---
Progress Note - Dictate Date Seen: Mar 20, 2024 Medical Necessity Reason Pt with a Central, PICC or Fol: Yes The following are medically ne: Central Line, Sharpe Catheter Reason for sharpe catheter: Strict I&O Subjective Patient seen and examined at bedside. S/p extubation, on supplemental oxygen Overnight events reviewed. vital signs Vital Sign Date Time Temp Pulse Resp B/P (MAP) Pulse Ox O2 Delivery O2 Flow Rate FiO2 03/20/24 21:00 97.5 43 20 177/80 (112) 74 97.5 03/20/24 10:21 Room Air* 0 21 Total Intake and Output 03/19/24 03/19/24 03/20/24 15:00 23:00 07:00 Intake Total 225 ml 400 ml Output Total 650 ml 800 ml Balance 225 ml -250 ml -800 ml medications Current Medications Medications Dose Ordered Sig/Hunter Route Start Time Stop Time Status Last Admin Dose Admin Pantoprazole Sodium 40 mg DAILY IV 03/12/24 10:00 03/20/24 09:59 40 MG Enoxaparin Sodium 30 mg DAILY SC 03/12/24 10:00 03/20/24 09:59 30 MG Vancomycin HCl 0 ml @ 0 mls/hr UD IV 03/11/24 16:30 Enteral Nutritional Formula 1,000 ml 40ML/HR GT 03/11/24 16:30 03/14/24 17:14 1,000 ML Fluconazole 100 ml @ 100 mls/hr DAILY IV 03/18/24 10:00 03/20/24 09:59 100 MLS/HR Ampicillin Sodium/ Sulbactam Sodium 3 gm/Sodium Chloride 100 ml @ 100 mls/hr Q12H IV 03/18/24 20:00 03/20/24 09:59 100 MLS/HR Purified Water 200 ml Q4HR GT 03/19/24 10:00 03/20/24 18:00 200 ML Morphine Sulfate 1 mg Q2HP PRN IV 03/19/24 11:45 03/19/24 14:21 1 MG Lactulose 30 ml BID GT 03/20/24 10:00 03/20/24 09:58 30 ML objective Gen.: Patient lying in bed in no apparent distress. On supplemental oxygen. Head: Normocephalic, atraumatic. Eyes: EOMI/PERRLA. Ears: Normal hearing. Normal anatomy. Neck/trachea: Trachea midline, supple. Nose: Normal external anatomy. Mouth: Moist mucous membranes. Chest: Decreased air entry bilaterally. No wheezing or rhonchi. Cardiovascular: Positive S1, positive S2. Regular rate and rhythm. Abdomen: Positive bowel sounds in all 4 quadrants. Soft, non-tender, non- distended. : Deferred. Rectal: Deferred. Skin: Warm, dry. Intact. Extremities: 2+ radial pulses bilaterally. No lower extremity edema. Neuro: Awake, alert, oriented x3. No gross motor or sensory deficits. Cranial nerves II through XII intact. Gait not assessed. 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 Supportive care Awaiting hospice eval. Head of bed elevation Aspiration precautions Pain control Avoid oversedation Continue wound care. Continue antibiotics/antifungal NGT. Tube feeds for nutritional support. Disposition per hospitalist. Labs and imaging reviewed. Rest of plan as noted below. Plan: s/p extubation on 03/19/24 Supplemental oxygen Titrate to keep O2 sats above 92%. Off sedation Off pressors, hemodynamically stable. S/p bronchoscopy on 03/12/24 - see separate procedure note for details. Antibiotics F/u cultures - Blood cultures show no growth x72 hours Tube feeds for nutritional support Monitor renal function Monitor electrolytes. Supplement as necessary. Monitor ins and outs. Maintain euvolemia Wound care Accu-Cheks, insulin sliding scale PRN. Lactic acid trending down. GI prophylaxis with Protonix IV DVT prophylaxis with Lovenox Prognosis: Poor given patient's multiple co-morbidities. Rest of plan per hospitalist and other consultants. Thank you Dr. Graham Espitia MD, for allowing me to participate in this patient's care. Further recommendations will depend on the patient's clinical course. Please do not hesitate to contact me if you have any questions or concerns. This medical document was created using an electronic medical record system with Dragon computerized dictation system. Although these documentations are being carefully reviewed, there may still be some phonetic and typographical changes. The errors are purely typographical, due to imperfection on the software program, and do not reflect any compromise in the patient's medical care. Dietary Evaluation Review Comments: 1) Consider Glucerna 1.2 @ 45ml/hr x 24hr goal rate as tolerated 2) If pt remains NPO initiate TPN within 2-3 days of NPO status as pt is underweight. 3) Advance pt diet when medically feasible to a CCHO 60g diet modified per ARCHITECTURAL ADMINISTRATIVE ASSISTANT recommendations. 4) Consider PARADISE 1 pkt BIDWM for wound 5) Continue current plan of care Expected Outcomes/Goals: 1) Pt to receive nutrition support within 2-3 days of NPO status. 2) Pt diet to advance 3) F/U in 2-3 days Plan discussed with: Patient, Other (IRENE Corbin) GERRY FERRO MD Mar 20, 2024 22:25
[2024-03-21 01:00] VITALS: BP 143/95; PULSE 100; RESP 20; TEMP 97.8; O2SAT 77
[2024-03-21 05:00] VITALS: BP 130/88; PULSE 99; RESP 23; TEMP 96.4; O2SAT 74
[2024-03-21 07:53] LABS: BUN/Creatinine Ratio 25.6 (10.0-20.0)
[2024-03-21 07:59] LABS: Albumin 2.3 g/dL (3.2-4.8); Calcium 7.8 mg/dL (8.7-10.4); Phosphorus 5.9 mg/dL (2.4-5.1); Potassium 2.8 mmol/L (3.5-5.1)
[2024-03-21 09:00] VITALS: BP 123/66; PULSE 54; RESP 16; TEMP 96.4; O2SAT 94
[2024-03-21 10:00] VITALS: O2SAT 96
[2024-03-21 13:00] VITALS: BP 132/75; PULSE 56; RESP 20; TEMP 97.4; O2SAT 89
[2024-03-21] MEDS: POTASSIUM EFFERVESENT TAB 25 MEQ GT ONE (15:32)
--- NOTE | 2024-03-21 15:55 | DVHPN2 ---
Progress Note - Dictate Date Seen: Mar 21, 2024 Medical Necessity Reason Pt with a Central, PICC or Fol: Yes The following are medically ne: Central Line, Sharpe Catheter Reason for sharpe catheter: Strict I&O Subjective Patient seen and examined at bedside. Remains on supplemental oxygen Overnight events reviewed. vital signs Vital Sign Date Time Temp Pulse Resp B/P (MAP) Pulse Ox O2 Delivery O2 Flow Rate FiO2 03/21/24 13:00 97.4 56 20 132/75 (94) 89 97.4 03/20/24 20:00 Room Air* 0 21 Total Intake and Output 03/20/24 03/20/24 03/21/24 15:00 23:00 07:00 Intake Total 200 ml Output Total 400 ml Balance -200 ml medications Current Medications Medications Dose Ordered Sig/Hunter Route Start Time Stop Time Status Last Admin Dose Admin Pantoprazole Sodium 40 mg DAILY IV 03/12/24 10:00 03/21/24 11:11 40 MG Enoxaparin Sodium 30 mg DAILY SC 03/12/24 10:00 03/21/24 11:12 30 MG Vancomycin HCl 0 ml @ 0 mls/hr UD IV 03/11/24 16:30 Enteral Nutritional Formula 1,000 ml 40ML/HR GT 03/11/24 16:30 03/14/24 17:14 1,000 ML Fluconazole 100 ml @ 100 mls/hr DAILY IV 03/18/24 10:00 03/21/24 11:12 100 MLS/HR Ampicillin Sodium/ Sulbactam Sodium 3 gm/Sodium Chloride 100 ml @ 100 mls/hr Q12H IV 03/18/24 20:00 03/21/24 08:10 100 MLS/HR Purified Water 200 ml Q4HR GT 03/19/24 10:00 03/21/24 14:35 200 ML Morphine Sulfate 1 mg Q2HP PRN IV 03/19/24 11:45 03/19/24 14:21 1 MG Lactulose 30 ml BID GT 03/20/24 10:00 03/20/24 22:26 30 ML objective Gen.: Patient lying in bed in no apparent distress. On supplemental oxygen. Head: Normocephalic, atraumatic. Eyes: EOMI/PERRLA. Ears: Normal hearing. Normal anatomy. Neck/trachea: Trachea midline, supple. Nose: Normal external anatomy. Mouth: Moist mucous membranes. Chest: Decreased air entry bilaterally. No wheezing or rhonchi. Cardiovascular: Positive S1, positive S2. Regular rate and rhythm. Abdomen: Positive bowel sounds in all 4 quadrants. Soft, non-tender, non- distended. : Deferred. Rectal: Deferred. Skin: Warm, dry. Intact. Extremities: 2+ radial pulses bilaterally. No lower extremity edema. Neuro: Awake, alert, oriented x3. No gross motor or sensory deficits. Cranial nerves II through XII intact. Gait not assessed. laboratory and microbiology Laboratory Tests 03/21/24 06:56 03/20/24 10:25 Test 03/21/24 06:56 Range/Units Serum Glucose 93 74-106 mg/dL Assessment/Plan Impression: Acute hypoxic respiratory failure Sepsis with septic shock UTI Multilobar pneumonia Hypernatremia Hypoxemia Bed ridden x 2 years Large AAA 5.9 cm Constipation Diffuse mixed lytic osseous lesions suspicious for metastatic disease Hx of nicotine dependence Events: Remains on supplemental oxygen On 6 LPM NC. Taper O2 as tolerated Chemical code - Modified code. Supportive care Awaiting hospice eval. Head of bed elevation Aspiration precautions Pain control Avoid oversedation Continue wound care. Continue antibiotics/antifungal Potassium supplementation Monitor renal function NGT. Tube feeds for nutritional support. Disposition per hospitalist. Labs and imaging reviewed. Rest of plan as noted below. Plan: s/p extubation on 03/19/24 Supplemental oxygen Titrate to keep O2 sats above 92%. Off sedation Off pressors, hemodynamically stable. S/p bronchoscopy on 03/12/24 - see separate procedure note for details. Antibiotics F/u cultures - Blood cultures show no growth x72 hours Tube feeds for nutritional support Monitor renal function Monitor electrolytes. Supplement as necessary. Monitor ins and outs. Maintain euvolemia Wound care Accu-Cheks, insulin sliding scale PRN. Lactic acid trending down. GI prophylaxis with Protonix IV DVT prophylaxis with Lovenox Prognosis: Poor given patient's multiple co-morbidities. Rest of plan per hospitalist and other consultants. Thank you Dr. Graham Espitia MD, for allowing me to participate in this patient's care. Further recommendations will depend on the patient's clinical course. Please do not hesitate to contact me if you have any questions or concerns. This medical document was created using an electronic medical record system with Dragon computerized dictation system. Although these documentations are being carefully reviewed, there may still be some phonetic and typographical changes. The errors are purely typographical, due to imperfection on the software program, and do not reflect any compromise in the patient's medical care. Dietary Evaluation Review Comments: 1) Consider Glucerna 1.2 @ 45ml/hr x 24hr goal rate as tolerated 2) If pt remains NPO initiate TPN within 2-3 days of NPO status as pt is underweight. 3) Advance pt diet when medically feasible to a CCHO 60g diet modified per SECURITY INFRASTRUCTURE ENGINEER recommendations. 4) Consider PARADISE 1 pkt BIDWM for wound 5) Continue current plan of care Expected Outcomes/Goals: 1) Pt to receive nutrition support within 2-3 days of NPO status. 2) Pt diet to advance 3) F/U in 2-3 days Plan discussed with: Patient, Other (IRENE Benavidez) GERRY FERRO MD Mar 21, 2024 15:55
--- NOTE | 2024-03-21 16:00 | DVHDS2 ---
Discharge Summary Date of Admission Mar 11, 2024 at 15:04 Date of Discharge: Mar 21, 2024 Labs/Diagnostic Data: Laboratory Results Test 03/21/24 06:56 03/20/24 10:25 03/19/24 17:13 03/19/24 06:57 Sodium Level 151 mmol/L (136-145) Potassium Level 2.8 mmol/L (3.5-5.1) Chloride Level 110 mmol/L (98-107) Carbon Dioxide Level 21 mmol/L (20-31) Anion Gap 20 (5-15) Blood Urea Nitrogen 70 mg/dL (9-23) Creatinine 2.73 mg/dL (0.700-1.30) Estimated GFR () 29 mL/min Estimated GFR (Non- 24 mL/min BUN/Creatinine Ratio 25.6 (10.0-20.0) Serum Glucose 93 mg/dL (74-106) Calcium Level 7.8 mg/dL (8.7-10.4) Phosphorus Level 5.9 mg/dL (2.4-5.1) Albumin 2.3 g/dL (3.2-4.8) Random Vancomycin Level 15.0 ug/mL (5-10) White Blood Count 21.8 10^3/uL (4.4-10.8) Red Blood Count 4.37 10^6/uL (4.5-5.90) Hemoglobin 11.9 g/dL (13.5-17.5) Hematocrit 37.4 % (41.0-53.0) Mean Corpuscular Volume 85.7 fL (80.0-100.0) Mean Corpuscular Hemoglobin 27.3 pg (28.0-32.0) Mean Corpuscular Hemoglobin Concent 31.9 g/dL (32.0-36.0) Red Cell Distribution Width 18.6 % (11.8-14.3) Platelet Count 125 10^3/uL (140-450) Mean Platelet Volume 8.6 fL (6.9-10.8) Neutrophils (%) (Auto) % (37.0-80.0) Lymphocytes (%) (Auto) % (10.0-50.0) Monocytes (%) (Auto) % (0.0-12.0) Basophils (%) (Auto) % (0.0-2.0) Neutrophils # (Auto) 10 ^3/uL (1.6-8.6) Lymphocytes # (Auto) 10 ^3/uL (0.4-5.4) Monocytes # (Auto) 10 ^3/uL (0-1.3) Differential Total Cells Counted 100.0 (100) Neutrophils % (Manual) 92 (37.0-80.0) Band Neutrophils % (Manual) 0 Lymphocytes % (Manual) 4 (10.0-50.0) Monocytes % (Manual) 3 (0-12) Eosinophils % (Manual) 1 (0-7) Basophils % (Manual) 0 (0.0-2.0) Metamyelocytes % (manual) 0 Myelocytes % (Manual) 0 Promyelocytes % (Manual) 0 Blast Cells % (Manual) 0 Nucleated Red Blood Cells 1.0 % Reactive Lymphocytes 0 Platelet Estimate Decreased Glomerular Filtration Rate Calc 26 mL/min (>90) Magnesium Level 2.0 mg/dL (1.6-2.6) Total Bilirubin 0.2 mg/dL (0.2-1.0) Aspartate Amino Transferase (AST) 15 U/L (13-40) Alanine Aminotransferase (ALT) 10 U/L (7-40) Alkaline Phosphatase 118 U/L (46-116) Total Protein 5.2 g/dL (5.7-8.2) POC Glucose 107 mg/dl (70-106) Blood Gas Specimen Type Arterial Blood Gas Sample Site Arterial line Blood Gas Patient Temperature 37.0 Arterial Blood Date Drawn [id number] Arterial Blood pH 7.435 (7.350-7.450) Arterial Blood Partial Pressure CO2 26.1 mmHg (35.0-48.0) Arterial Blood Partial Pressure O2 93.3 mmHg (83.0-108.0) Arterial Blood HCO3 17.1 mmol/L (21.0-28.0) Arterial Blood Oxygen Saturation 96.6 % (94.0-98.0) Arterial Blood Base Excess -5.8 mmol/L (-2.0-3.0) Arterial Blood Oxyhemoglobin 96.0 % (94.0-98.0) Arterial Blood Carboxyhemoglobin 0.5 % (0.5-1.5) Arterial Blood Methemoglobin 0.1 % (0.0-1.5) Will Test N/a Blood Gas Total Hemoglobin 10.70 g/dL (13.5-17.5) Blood Gas Set Respiration Rate 18.0 Blood Gas Modality Vent - ac FiO2 % 30.0 Blood Gas Tidal Volume 500.0 Blood Gas PEEP or CPAP 5.0 Test 03/19/24 02:56 03/17/24 08:10 03/14/24 03:10 03/13/24 06:39 Eosinophils (%) (Auto) 0.1 % (0.0-7.0) Eosinophils # (Auto) 0 10 ^3/uL (0-0.8) Basophils # (Auto) 0 10 ^3/uL (0-0.2) Blood Gas Spontaneous Rate 21 Specimen Drawn By Vinny hough Stomatocytes Few Prothrombin Time 14.0 sec (9.3-11.8) Prothrombin Time INR 1.35 (0.9-1.15) Activated Partial Thromboplast Time 39.6 SEC (24.5-34.5) Blood Gas Inspiratory Pressure 19.0 Bl Gas Inspiratory/Expiratory Ratio 1:3.3 Test 03/12/24 15:37 03/12/24 15:25 03/12/24 03:42 03/12/24 03:36 Vancomycin Level Trough 32.8 ug/mL (5-10) Urine Creatinine 27.92 mg/dL (30.0-125.0) Urine Sodium 82 mmol/L (40-220) Hemoglobin A1c 6.1 % A1C (<5.7) Triglycerides Level 112 mg/dL (< 150) Cholesterol Level 72 mg/dL (< 200) LDL Cholesterol 26 mg/dL (< 100) HDL Cholesterol 23 mg/dL (40-59) Lipase 20 U/L (12-53) Thyroid Stimulating Hormone (TSH) 1.60 uIU/mL (0.55-4.78) Ammonia 34 umol/L (11-32) Test 03/11/24 09:18 03/11/24 06:01 03/11/24 05:14 03/11/24 04:21 Troponin I High Sensitivity 27 ng/L (</=54) Lactic Acid Level 2.8 mmol/L (0.4-2.0) B-Type Natriuretic Peptide 262.73 pg/mL (0-100) Influenza Type A Antigen Negative (Negative) Influenza Type B Antigen Negative (Negative) SARS-CoV-2 Antigen (Rapid) Negative (NEGATIVE) Blood Gas Spontaneous Tidal Volume 540 Test 03/11/24 04:00 03/11/24 03:24 Urine Color Yellow (Yellow) Urine Clarity Turbid (Clear) Urine pH 6.0 (5.0-9.0) Urine Specific [place] 1.016 (1.001-1.035) Urine Protein 1+ (Negative) Urine Ketones Negative (Negative) Urine Blood 1+ /uL (Negative) Urine Nitrite Negative (Negative) Urine Bilirubin Negative (Negative) Urine Urobilinogen 2 mg/dL (Negative) Urine Leukocyte Esterase 3+ /uL (Negative) Urine RBC 24 /hpf (0 - 3) Urine WBC 280 /hpf (0 - 3) Urine Squamous Epithelial Cells Few /hpf (<5) Urine Bacteria Many /hpf (None Seen) Urine Mucus Few (None Seen) Urine Glucose Normal mg/dL (Normal) Urine Opiates Screen Neg (NEGATIVE) Urine Fentanyl Screen Neg (NEGATIVE) Urine Barbiturates Screen Neg (NEGATIVE) Urine Phencyclidine Screen Neg (NEGATIVE) Urine Amphetamines Screen Neg (NEGATIVE) Urine Benzodiazepines Screen Neg (NEGATIVE) Urine Cocaine Screen Neg (NEGATIVE) Urine Cannabinoids Screen Neg (NEGATIVE) Plasma/Serum Blood Alcohol < 3.0 mg/dL (<10) Other Laboratory Tests 03/21/24 06:56 03/20/24 10:25 Brief Hx & Hospital Course: Final diagnoses: Acute hypoxic respiratory failure Sepsis with septic shock UTI Multi lobar pneumonia, mixed Gram-positive and Gram-negative Hypernatremia Hypoxemia Bed ridden x 2 years 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 His mental status started to decline 2 weeks ago Here he was hypotensive and was started on Levophed drip, he was tachycardic, he was intubated and currently is sedated and still on Levophed for blood pressure support and Versed for sedation The labs showed UTI Chest x-ray showed pneumonia White count is high at 9.2 Lactic acid high at 4.6 The patient had sepsis and septic shock on vasopressors and was intubated and given mechanical ventilation and IV antibiotics Overall he did not improve Even though vasopressors were discontinued and he was continued on broad- spectrum antibiotics for the pneumonia and UTI, he had a large sacral wound, he was hydrated with IV fluids for the [place], kidney function did not improve and he also became hypernatremic He was started on a Bumex drip and also free water Nephrology and Pulmonary Medicine were consulted Overall did not do well We discussed the care with the family, his son said he does not want him to have a tracheostomy, our stem roller or crusher operator did not think the patient is a good candidate for tracheostomy The family made the patient DNR and we performed a terminal weaning The patient was taken off the ventilator and downgraded to the floor Overall he remained very weak, unresponsive, does not follow commands, we suggested hospice with the family and they agreed The plan is to go home on hospice today for comfort care Condition at Discharge: Poor Final Diagnosis/Problems List Acute hypoxic respiratory failure Sepsis with septic shock UTI Multi lobar pneumonia, mixed Gram-negative and Gram-positive Hypernatremia Hypoxemia Bed ridden x 2 years 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 Patient was counseled about treatment plan, medications, possible side effects, patientverbalized understanding. All questions were answered to the best of my ability. 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
[2024-03-21 17:00] VITALS: BP 129/78; PULSE 87; RESP 22; TEMP 96; O2SAT 94
== END 2024-03-21 18:00 | disposition hospice, inpatient (51) | DRG 870 ==
LOC: EDBD 03:00 → ER 03:00 → OVERFLOW 15:04 → ICU WEST 03-12 05:00 → WEST WING 03-19 19:31
PROVIDERS: ADMIT Internal Medicine Geriatric Medicine; ATTEND Internal Medicine Geriatric Medicine
PROC: 5A1955Z Respiratory Ventilation, Greater than 96 Consecutive Hours (ICD-10-PCS; principal; 2024-03-11)
PROC: 0BH17EZ Insertion of Endotracheal Airway into Trachea, Via Natural or Artificial Opening (ICD-10-PCS; 2024-03-11)
PROC: 02HV33Z Insertion of Infusion Device into Superior Vena Cava, Percutaneous Approach (ICD-10-PCS; 2024-03-11)
PROC: B548ZZA Ultrasonography of Superior Vena Cava, Guidance (ICD-10-PCS; 2024-03-11)
PROC: 0B9F8ZZ Drainage of Right Lower Lung Lobe, Via Natural or Artificial Opening Endoscopic (ICD-10-PCS; 2024-03-12)
PROC: 03HY32Z Insertion of Monitoring Device into Upper Artery, Percutaneous Approach (ICD-10-PCS; 2024-03-13)
PROC: B34HZZZ Ultrasonography of Right Upper Extremity Arteries (ICD-10-PCS; 2024-03-13)
PROC: 30233N1 Transfusion of Nonautologous Red Blood Cells into Peripheral Vein, Percutaneous Approach (ICD-10-PCS; 2024-03-14)
DX: A41.9 Sepsis, unspecified organism (principal); R65.21 Severe sepsis with septic shock; J96.01 Acute respiratory failure with hypoxia; N17.0 Acute kidney failure with tubular necrosis; J15.69 Pneumonia due to other Gram-negative bacteria; J15.9 Unspecified bacterial pneumonia; N39.0 Urinary tract infection, site not specified; E87.0 Hyperosmolality and hypernatremia; E46 Unspecified protein-calorie malnutrition; E87.1 Hypo-osmolality and hyponatremia; E87.20 Acidosis, unspecified; Z66 Do not resuscitate; Z20.822 Contact with and (suspected) exposure to COVID-19; D64.9 Anemia, unspecified; K59.00 Constipation, unspecified; I71.40 Abdominal aortic aneurysm, without rupture, unspecified; B95.7 Other staphylococcus as the cause of diseases classified elsewhere; B96.20 Unspecified Escherichia coli [E. coli] as the cause of diseases classified elsewhere; Z74.01 Bed confinement status; Z68.22 Body mass index [BMI] 22.0-22.9, adult; Z87.891 Personal history of nicotine dependence; Z51.5 Encounter for palliative care
CPT/HCPCS: 36415; 36600; 70450; 71045; 74176; 80048; 80053; 80061; 80069; 80202; 80307; 80320; 81001; 82140; 82565; 82570; 82805; 82962; 83036; 83605; 83690; 83735; 83880; 84300; 84443; 84484; 85007; 85014; 85018; 85025; 85027; 85610; 85730; 86850; 86900; 86901; 86920; 87040; 87070; 87077; 87081; 87086; 87088; 87186; 87205; 87426; 87804; 93005; 93306; 94002; 94003; 94640; 96365; 96375; 99291; G0378; J0131; J0330; J1450; J2470; J2543; J2704; J3480; P9047